=== PATIENT | female | born 1960 | race Caucasian/White ===

== ENCOUNTER 2021-06-23 10:47 | Outpatient (REF) | payer BC, SELFPAY ==
[2021-06-24 16:39] LABS: COVID-19 RT-PCR UVMMC Result Negative (Negative)
== END 2021-06-23 10:48 | disposition home or self-care (01) ==
LOC: LBN 10:47
PROVIDERS: PCP Internal Medicine; Visit Provider Physician Assistant
DX: Z20.822 Contact with and (suspected) exposure to COVID-19 (principal)
CPT/HCPCS: U0003

== ENCOUNTER 2021-07-05 10:20 | Outpatient (REF) | payer BC, SELFPAY ==
[2021-07-06 16:23] LABS: COVID-19 RT-PCR UVMMC Result Negative (Negative)
== END 2021-07-05 10:21 | disposition home or self-care (01) ==
LOC: LBN 10:20
PROVIDERS: PCP Family Medicine; Visit Provider Physician Assistant
DX: Z20.822 Contact with and (suspected) exposure to COVID-19 (principal)
CPT/HCPCS: U0003

== ENCOUNTER 2021-07-16 11:35 | Outpatient (CLI) | payer BC, SELFPAY ==
--- NOTE | 2021-07-16 11:11 | DI.RAD_ITS ---
Exam(s) XR CHEST 2V PA LATERAL EXAM: XR CHEST 2V PA LATERAL CLINICAL HISTORY: cough,r05.9 TECHNIQUE: 2D digital imaging was performed. COMPARISON: No exams were available for comparison FINDINGS: MEDIASTINUM: Normal. HEART: Normal. PULMONARY VASCULATURE: Normal. LUNGS: Clear. PLEURAL SPACE: No pleural effusion or pneumothorax. BONE:Unremarkable for age. IMPRESSION: No acute abnormality. DATA REPOSITORY: RADIATION DOSE DELIVERED:
== END 2021-07-16 11:55 ==
PROVIDERS: PCP Family Medicine; Visit Provider Physician Assistant
DX: R05.8 Other specified cough (principal)
CPT/HCPCS: 71046

== ENCOUNTER 2021-07-19 10:20 | Outpatient (CLI) | payer BC, SELFPAY ==
--- NOTE | 2021-07-19 10:15 | RT.EKG_ITS ---
APPROVED REPORT Exam: Resting ECG Reason for Exam: Chest discomfort Patient Location: O HR:60 bpm ECG Measurements Heart Rate 60 AXIS FL 190 P 59 QRSd 80 QRS 44 QT 398 T 27 QTc 397 Conclusion Sinus rhythm...normal P axis, V-rate 60- 99 Normal Electrocardiogram
== END 2021-07-19 10:21 | disposition home or self-care (01) ==
LOC: DI.CM 10:21
PROVIDERS: PCP Family Medicine; Visit Provider Physician Assistant
DX: R07.89 Other chest pain (principal)
CPT/HCPCS: 93010

== ENCOUNTER 2021-07-19 12:12 | Outpatient (CLI) | payer BC, SELFPAY ==
--- NOTE | 2021-07-19 11:30 | DI.CT_ITS ---
Exam(s) CT CHEST PE CTA EXAM: CT CHEST PE CTA CLINICAL HISTORY: R07.9 chest pain, chest pressure, mild SOB. TECHNIQUE: Imaging Protocol: Axial CT angiography was performed with multi-slice acquisition and mu lti-planar and/or 3D reconstructions. CONTRAST MATERIAL: Intravenous: Omnipaque 350 Contrast volume:100 ml COMPARISON: No exams were available for comparison FINDINGS: Pulmonary Arteries: No evidence of filling defect to suggest pulmonary emboli. Tracheobronchial tree: Patent where visualized. Mediastinum and Mary Lou: No dominant adenopathy or fluid collection. Pulmonary parenchyma: No consolidation or dominant measurable mass. Pleura: No effusion or pneumothorax. Heart: The heart is not dilated. No coronary artery calcifications are seen. Aorta: Thoracic aorta non-dilated. Motion at aortic root.. No dissection. Upper abdomen: Unremarkable. Bones: Unremarkable for age. IMPRESSION: No evidence of pulmonary embolism or other acute abnormality.. RADIATION DOSE DELIVERED: Total DLP DATA REPOSITORY: All CT scans at this facility are submitted to the National Radiology Data Registry (NRDR) Dose Index Registry (DIR) with the [employer] (ACR). RADIATION OPTIMIZATION: All CT scans at this facility use at least one of these dose optimization te chniques: automated exposure control; mA and/or kV adjustment per patient size (includes targeted exa ms where dose is matched to clinical indication); or iterative reconstruction.
[2021-07-19 12:35] LABS: Estimated GFR 56.95 (mL/min/1.73m2)
[2021-07-19 12:36] LABS: Troponin I < 0.05 ng/mL (<0.06)
[2021-07-19] MEDS: Omnipaque 350 MG/ML 100 ML BTL IJ (13:03)
[2021-07-19] MEDS: Normal Saline - Diluent 50 ML VIAL IV (13:03)
== END 2021-07-19 12:32 ==
PROVIDERS: PCP Family Medicine; Visit Provider Physician Assistant
DX: R07.9 Chest pain, unspecified (principal)
CPT/HCPCS: 36415; 71275; 82565; 84484; J3490

== ENCOUNTER 2021-08-09 04:05 | Outpatient (CLI) | payer BC, SELFPAY ==
[2021-08-09 08:04] LABS: HCT 42.5 % (36.0-46.0); HGB 13.9 g/dL (11.2-15.7); MCHC 32.7 % (32.0-36.0); MCV 91.6 fL (80-95); MPV 9.4 fL (8.0-11.0); Platelet Count 308 10^3/uL (130-400); RBC 4.64 10^6/uL (3.93-5.22); RDW 12.5 % (11.7-14.6); RDW-SD 42.1 fL; WBC 7.82 10^3/uL (4.4-10.8)
[2021-08-09 09:12] LABS: Iron 83 ug/dL (50-170); Total Iron Binding Capacity 324 ug/dL (250-450); Transferrin Sat 26 % (15-50)
[2021-08-09 09:19] LABS: ALT 30 U/L (14-59); AST 22 U/L (15-37); Albumin 3.9 g/dL (3.4-5.0); Alkaline Phosphatase 100 U/L (46-116); Anion Gap 8.2 mmol/L (3-11); BUN 21 mg/dL (7-18); Bilirubin, Total 0.4 mg/dL (0.2-1.0); CO2 28.8 mmol/L (21.0-32.0); Calculated LDL 127 mg/dL (<100); Chloride 104 mmol/L (98-107); Cholesterol 202 mg/dL (<200); Estimated GFR 56.75 (mL/min/1.73m2); Ferritin 71 ng/mL (8-252); Glucose 96 mg/dL (74-106); HDL Cholesterol 55 mg/dL (40-60); Potassium 4.8 mmol/L (3.5-5.1); Sodium 141 mmol/L (136-145); Total Protein 6.8 g/dL (6.4-8.2); Triglyceride 100 mg/dL (<150)
[2021-08-10 09:48] LABS: HIV-1/2 Ag & Ab Screen Negative (Negative)
[2021-08-10 10:04] LABS: Hepatitis C Ab w Rflx HCV PCR Negative (Negative)
== END 2021-08-09 04:06 | disposition home or self-care (01) ==
LOC: LBO 04:05
PROVIDERS: PCP Family Medicine; Visit Provider Family Medicine
DX: E78.5 Hyperlipidemia, unspecified (principal); I10 Essential (primary) hypertension; E83.119 Hemochromatosis, unspecified; Z11.59 Encounter for screening for other viral diseases; Z11.4 Encounter for screening for human immunodeficiency virus [HIV]
CPT/HCPCS: 36415; 80053; 80061; 85027; 86803; 87389; 82728; 83540; 83550

== ENCOUNTER 2022-01-11 09:07 | Outpatient (CLI) | payer BC, SELFPAY ==
--- NOTE | 2022-01-11 09:00 | RT.EKG_ITS ---
APPROVED REPORT Exam: Resting ECG Reason for Exam: Fatigue, hypertension Patient Location: O HR:53 bpm ECG Measurements Heart Rate 53 AXIS IA 169 P 43 QRSd 77 QRS 23 QT 402 T 14 QTc 379 Conclusion Sinus bradycardia...rate< 60 Normal Electrocardiogram
== END 2022-01-11 09:08 | disposition home or self-care (01) ==
LOC: DI.CM 09:13
PROVIDERS: PCP Family Medicine; Visit Provider Family Medicine
DX: I10 Essential (primary) hypertension (principal); T73.3XXA Exhaustion due to excessive exertion, initial encounter
CPT/HCPCS: 93010

== ENCOUNTER → 2022-03-15 00:32 | Outpatient (CLI) | payer BC, SELFPAY ==
--- OUTSIDE RECORDS SUMMARY | 2022-03-15 00:33 | XMS_ITS | Clinical Summary ---
:1960 Author Organization [facility] [address] Care Team Providers Name Role Phone Jeovanny Croft MD Primary Care Provider Allergies Active Allergy Reactions Severity Noted Date Comments Sulfa (Sulfonamide Antibiotics) 2 Medications Medication Sig Dispensed Refills Start Date End Date Status nebivoloL (BYSTOLIC) 5 TAKE 1 TABLET BY 0 07/29/2021 Active mg Tablet MOUTH DAILY sertraline (Zoloft) 25 TAKE 1 TABLET BY 0 07/24/2021 Active mg Tablet MOUTH DAILY olmesartan (BENICAR) TAKE 1 TABLET BY 0 07/24/2021 Active 20 mg Tablet MOUTH DAILY pantoprazole EC 0 06/23/2021 Act modesto (Protonix) 40 mg Tablet, Delayed Release (E.C.) pravastatin TAKE 1 TABLET BY 0 09/01/2021 Active (Pravachol) 10 mg MOUTH DAILY Tablet sulfacetamide 0 05/28/2021 Activ e sodium-sulfur (Avar) 10-5 % (w/w) Cleanser fluorouraciL (Efudex) Apply twice daily 40 g 0 09/21/2021 Active 5 % CreamIndications: (morning and Actinic keratoses night) to the nose for three weeks valACYclovir (Valtrex) At first sign of 40 tablet 0 09/21/2021 Active 1 gram Tablet cold sore, take two tablets by mouth. After 12 hours, take additional two tablets by mouth. Azelaic Acid (FINACEA) After skin is 50 g 11 09/21/2021 Active 15 % Gel thoroughly washed and patted dry, gently massage a thin layer onto the entire face. Do not use with Efudex. Social History Tobacco Use Types Packs/Day Years Used Date Never Smoker Smokeless Tobacco: Never Used Sex Assigned at Date Recorded Not on file Plan of Treatment Health Maintenance Due Date Last Done Comments Covid-19 Vaccine (#1) 1967 HIV screen 1980 Hepatitis C Screening 1980 Tdap adult 1981 Tetanus vaccine 1981 HPV test 1992 PAP Smear 1992 Breast Cancer Share Decision Needed 2002 Colonoscopy 2007 Breast Cancer screening 2012 Zoster vaccine (1 of 2) 2012 Advance Directive 2017 Influenza (Flu) vaccine (1 of 1 - Influenza standard 04/28/2022 series) Insurance Payer Benefit Plan / Subscriber ID Effective Dates Phone Addre ss Type Group [facility] [id number] 2016-Present [address] [place] [address] Care Teams 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
--- OUTSIDE RECORDS SUMMARY | 2022-03-15 00:33 | XMS_ITS | Encounter Summary ---
:1960 Author Organization [facility] Address [address] [place] [address] Care Team Providers Name Role Phone Jeovanny Croft MD Primary Care Provider Reason for Visit Reason Comments Skin Cancer Examination Consultation (Routine) - Authorized Specialty Diagnoses / Procedures Referred By Contact Refer red To Contact Dermatology Diagnoses Basal cell carcinoma of skin, unspecified Squamous cell carcinoma of skin, unspecified Jeovanny Croft MD [facility] [address] [place] [address] [place] [address] Fax: Referral ID Status Reason Start Expiration Visits Visits Date Date Requested Authorized [id number] Authorized Consult, 07/21/2022 6 6 [address] [facility] PCP Updated and/or Approved Encounter Details Date Type Department Care Team Description 09/21/2021 Office Visit Dermatology at [facility] Louie Givens istory of nonmelanoma skin cancer; Elinor Mendez MD Actinic keratoses; [address] [facility] Lentigines; [place] [address] Seborrheic keratoses; [phone] [facility] Multiple benign nevi; RD-DERMATOLOGY Simmons angioma; [place], [place] [address] History of cold sores; [phone] Rosacea (Work) Social History Tobacco Use Types Packs/Day Years Used Date Never Smoker Smokeless Tobacco: Never Used Sex Assigned at Date Recorded Not on file documented as of this encounter Patient Instructions Patient InstructionsFany Snider CMA - 09/21/2021 1:40 PM EST Images from the original note were not included. Start the following regimen in 1 month (1 week after 3 week course of efudex) AM -- 1. Wash face with Cetaphil Gentle Clear Salicylic Acid Cleanser. 2. Rx: azelaic acid 4. EltaMD UV Clear SPF 46 PM -- 1. Wash face with Cetaphil Gentle Clear Salicylic Acid Cleanser. 2. Rx: tretinoin 0.06% . Start every other night for 4-6 weeks, then increase to nightly if not too dry. 3. VaniCream Hyaluronic Acid Facial Moisturizer (if needed) documented in this encounter Progress Notes Louie Givens MD - 09/21/2021 1:40 PM EST Images from the original note were not included. DEPARTMENT OF DERMATOLOGY Medical Dermatology Clinic Note Provider: Louie Givens MD Patient's preferred name Monae Mercedes Preferred contact method for results [x]Phone []myD-H []Letter Detailed phone message OK? Yes Are there any other people with whom we may discuss your care? Dr. Croft , [place] Past Medical History Date, location, treatment Melanoma N Dysplastic nevi N SCC H/O SCC on the face S/P Mohs BCC H/O BCC on the face S/p Mohs AKs Yes, LN2 UV exposure Sun protection: wears SPF during the summer Lots of sun exposure Other relevant past medical history Cold sores Eczema Rosacea Hypertension Bronchitis, allergies/hay fever Family History Details Melanoma Brother (metastatic) NMSC Mother Other relevant family history N Social History Occupation: retired Hobbies: gardening, jewelry Other: , 3 children (1 ) Pre-Procedure Questions Details Allergy to lidocaine, epinephrine, Dermabond, chlorhexidine, or adhesives N Bleeding disorder or blood thinners N Implanted devices (Pacemaker, defibrillator, deep brain stimulator, cochlear implant) N History of Present Illness: Monae Funk is a 61 y.o. Patient is referred to the clinic at the request of Jeovanny Croft for a full skin exam with the following concerns: - Peeling on the nose with a lesion on the nasal tip that is recurrent. - She has a history of rosacea, that has been acting up recently. She currently uses sodium sulfacetamide solution, which helps. - Roughness along the hairline on the forehead. - She was previously prescribed tretinoin 0.06% cream and has not used it since moving here, but questions whether this is recommended. Review of Systems: General: Feeling well. Skin: No other skin concerns. Medications: Reviewed in eD-H Allergies: Reviewed in eD-H Skin Examination: Full skin examination: Patient asked to undress to their comfort level. Verbalized that the provider???s preference is that the patient remove all clothing and that the provider will not examine areas patient elects to keep covered. Patient elects to keep underwear on and have the following examined: s calp, hair, face, ears, neck, chest, axillae, abdomen, back, and upper and lower extremities. Genitalia and buttocks were not examined. Assessment/Plan #. History of Non-Melanoma Skin Cancer - Well healed scars as per history above. - NER; will continue to clinically monitor #. Actinic Keratoses with Actinic Skin Damage - Scaly irregular pink papule located on right upper arm x1, posterior neck x1, right caodaism x1, right brow x2, mid forehead x2, left upper cutaneous lip x1, left cheek x1 with diffuse actinic damage on the face (particularly the nose) - Dicsussed etiology and treatment options Joint decision made to pursue in clinic cryotherapy treatment with at home efudex treatment. - Start Rx: 5-fluorouracil (Efudex) 5% cream: Apply twice daily (morning and night) to the nose for three weeks - Reviewed expectations and typical reaction to treatment. Redness, crusting, swelling and tenderness of treated skin expected to develop during treatment, and is a sign that the medication is working.Warned not to get in eyes. Discussed using medication as tolerated and stopping use for a day or two if inflammation becomes too intense or patient experiences discomfort. For any severe discomfort or side effects, patient was encouraged to call for further advice and possible evaluation. - LN2 x 2 to lesion, advised to return if lesion(s) do not resolve. Procedure Note: Procedure: Destruction of lesions with cryotherapy. Number: 9 Location: right upper arm x1, posterior neck x1, right caodaism x1, right brow x2, mid forehead x2, left upper cutaneous lip x1, left cheek x1 Discussed procedure and expectations including risks (including risk of hypopigmentation) and benefits. Verbal consent obtained. Frozen with LN2, 15-30 second thaw time, TWICE. There were no complications; the patient tolerated the procedure well. Post-procedure expectations and wound care were reviewed. #. Erythrotelangiectatic Rosacea - Crescencio red patches and telangiectasis on the bilateral cheeks, nose, chin, and forehead. - Discussed skin findings and treatment options - Start Rx: azelaic acid (Finacea) 15% gel: Apply once daily to the face in the morning - Start Rx: tretinoin (Retin-A) 0.06% cream: Apply a pea sized amount to the face at bedtime after washing, start by applying 3 times a week and increase to nightly as tolerated. Patient has Rx at home. - We discussed risks and benefits of topical tretinoin which include but are not limited to photosensitivity, potential teratogenicity, irritation, erythema, peeling. We discussed ability for UV light to inactive the medication requiring application at night. - Recommend the following: AM: Cetaphil Gentle Clear Salicylic Acid cleanser and Elta MD UV clear PM: Cetaphil Gentle Clear Salicylic Acid cleanser and VaniCream Hyaluronic Acid Facial Moisturizer #. History of HSV (Cold Sores) - Joint decision to pursue as needed Valtrex courses with flares. - Start Rx: valacyclovir (Valtrex) 1g: At first sign of cold sore, take two tablets by mouth. After 12 hours, take additional two tablets by mouth. Sent 40 tablets. #. Solar Lentigines - Light-brown evenly pigmented, well-demarcated macules on sun exposed areas of the skin. - Patient reassured of benign nature. #. Seborrheic Keratoses - Scattered brown and flesh colored waxy nummular stuck on plaques located on the trunk and extremities - Reassured of benign nature #. Benign Nevi - Scattered medium-brown macules and papules on the trunk and extremities. - Reassured of benign appearance on exam today. #. Simmons Angiomas - Multiple bright red, well-demarcated papules on the abdomen, chest, and back - Reassured of benign nature Other: ??? Sun protection discussed (protective clothing and SPF30+ broad-spectrum sunscreen) RTC: 6 months for FSE and recheck of nose []Note routed to medical office secretary [x]Recall placed in scheduling system []Appointment scheduled at checkout Scribe attestation: Fany Snider CMA has performed the documentation for this encounter in the presence of and acting as a scribe for Louie Givens MD. I performed the above scribed service and agree with the accuracy of the documentation in this encounter. Reviewed and signed by: Louie Givens MD Dermatology [facility] Patient seen and evaluated with staff engineering aide: Jessenia Foss MD Department of Dermatology [facility] Jessenia Foss MD - 09/21/2021 1:40 PM EST I directly supervised Dr. Givens during this office visit. Dr. Givens presented the history and physical exam to me. I then saw and examined this patient with Dr. Givens . We reviewed the history and pertinent details and I confirmed the physical findings. I agree with the details of the history and physical exam as documented in Dr. Givens's note. Jessenia Foss MD Staff Physician documented in this encounter Plan of Treatment Not on filedocumented as of this encounter Visit Diagnoses Diagnosis History of nonmelanoma skin cancer Personal history of other malignant neop lasm of skin Actinic keratoses Actinic keratosis Lentigines Other dyschromia Seborrheic keratoses Multiple benign nevi Benign neoplasm of skin, site unspecifie d Simmons angioma Nevus, non-neoplastic History of cold sores Personal history of other infectious and parasitic disease Rosacea documented in this encounter Care Teams Biller Relationship Specialty Start Date End Date Jeovanny Croft MD PCP - General Family Medicine 07/29/[address] [place] [address] [place] [id number] documented as of this encounter
--- OUTSIDE RECORDS SUMMARY | 2022-03-15 00:33 | XMS_ITS | Clinical Summary ---
:1960 Demographics Home Phone Preferred Language Unknown Marital Status Unknown Hindu Affiliation Unknown Race Unknown Ethnic Group Unknown Author Organization [facility] Address [address] [place] [address] Care Team Providers Name Role Phone Unavailable Primary Care Provider Unavailable Social History Tobacco Use Types Packs/Day Years Used Date Never Assessed Sex Assigned at Date Recorded Not on file Plan of Treatment Health Maintenance Due Date Last Done Comments COVID-19 Vaccine (1) 1965 Hepatitis C Screen Completed 08/09/2021
--- OUTSIDE RECORDS SUMMARY | 2022-03-15 00:33 | XMS_ITS | Encounter Summary ---
:1960 Demographics Home Phone Preferred Language Unknown Marital Status Unknown Nondenominational Affiliation Unknown Race Unknown Ethnic Group Unknown Author Organization [facility] Address [address] [place] [address] Care Team Providers Name Role Phone Unavailable Primary Care Provider Unavailable Encounter Details Date Type Department Care Team Description 06/23/2021 Lab Requisition [facility] Outr Resulting Lab, Pathology & Laboratory Provider [facility] [address] [place] [address] Social History Tobacco Use Types Packs/Day Years Used Date Never Assessed Sex Assigned at Date Recorded Not on file documented as of this encounter Plan of Treatment Not on filedocumented as of this encounter Procedures Procedure Name Priority Date/Time Associated Diagnosis Comme nts COVID-19 TEST [facility] Today 06/23/2021 10:30 LAB PCR EDT COVID-19 TESTING Routine 06/23/2021 10:30 Results for this EDT procedure are i n the results section. documented in this encounter Results COVID-19 TEST [facility] LAB PCR (06/23/2021 10:30 EDT) Specimen Swab - Entire nasopharynx (body structur e) Performing Organization Address City/State/ZIP Code Phon e Number [facility] [address] [place] [address] SERVICES COVID-19 TESTING (06/23/2021 10:30 EDT) COVID-19 rt-PCR Negative Negative [facility] Result Comment: [facility] This test has not been FDA c leared or approved. This test has been authorized by FDA under an EUA for use by authorized laboratories. This test has been authorized only for detection of nucleic acid fro SERVICES m 2019-nCoV, not for any oth er viruses or pathogens. This test is only authorized for the duration of the declaration that circumstances exist justifying the authorization of emergency use of in vitro d iagnostic tests for detectio n and/or diagnosis of 2019-nCoV under section 564(b)(1) of Act, 21 U.S.C ?? 360bbb-3(b) (1), unless the authorization is terminated or revoked sooner. Negative results do not prec lude 2019-nCoV infection and should not be used as the sole basis for treatment or other patient management decisions. Negative results must be combined with clinical observa tions, patient history, and epidemiological informatio n. This test was developed and its performance characteristics determined by [facility]. It has not been cleared or approved by the US Food and Drug Administration. FDA does not require this test to go through premarket FDA review. This t est is used for clinical purposes. It should not be regarded as investigational or for research. This laboratory is certified under the Clinical Laboratory Improvement Amendm ents (CLIA) as qualified to perform high complexity clinical laboratory testing. This test is based on the CD C COVID-19 Emergency Use Authorization (EUA) assay, with minor modification as defined by the FDA Performed on the [employer] 7 Flex RT-PCR System. Performing Lab [facility] Lab [facility] SERVICES Specimen Swab Performing Organization Address City/State/ZIP Code Phon e Number [facility] [address] [place] [address] SERVICES documented in this encounter Visit Diagnoses Not on filedocumented in this encounter
--- OUTSIDE RECORDS SUMMARY | 2022-03-15 00:33 | XMS_ITS | Encounter Summary ---
:1960 Demographics Home Phone Preferred Language Unknown Marital Status Unknown Christian Affiliation Unknown Race Unknown Ethnic Group Unknown Author Organization [facility] Address [address] [place] [address] Care Team Providers Name Role Phone Unavailable Primary Care Provider Unavailable Encounter Details Date Type Department Care Team Description 08/09/2021 Lab Requisition [facility] Outr Resulting Lab, Pathology & Laboratory Provider [facility] [address] [place] [address] Social History Tobacco Use Types Packs/Day Years Used Date Never Assessed Sex Assigned at Date Recorded Not on file documented as of this encounter Plan of Treatment Not on filedocumented as of this encounter Procedures Procedure Name Priority Date/Time Associated Comments Diagnosis HIV 1/2 ANTIGEN AND Routine 08/09/2021 7:53 EST R esults for this ANTIBODY, 4TH procedure are in GENERATION the results section. documented in this encounter Results HIV 1/2 ANTIGEN AND ANTIBODY, 4TH GENERATION (08/09/2021 7:53 EST) HIV 1 and 2 NegativeComment: If Negative [facility] Antibody/p24 acute HIV-1 LABORATORY Antigen, 4th infection is SERVICES Generation suspected in a high risk patient, submit plasma specimen for HIV-1 RNA quantitation test. Specimen Blood - Venous blood (substance) Narrative [facility] SERVICES - 08/10/2021 9:43 EST Fourth Generation assay performed on the Siemens Centaur XPT. Performing Organization Address City/State/ZIP Code Phon e Number [facility] [address] [place] [address] SERVICES documented in this encounter Visit Diagnoses Not on filedocumented in this encounter
--- OUTSIDE RECORDS SUMMARY | 2022-03-15 00:33 | XMS_ITS | Encounter Summary ---
:1960 Demographics Home Phone Preferred Language Unknown Marital Status Unknown Congregational Affiliation Unknown Race Unknown Ethnic Group Unknown Author Organization [facility] Address [address] [place] [address] Care Team Providers Name Role Phone Unavailable Primary Care Provider Unavailable Encounter Details Date Type Department Care Team Description 07/05/2021 Lab Requisition [facility] Outr Resulting Lab, Pathology & Laboratory Provider [facility] [address] [place] [address] Social History Tobacco Use Types Packs/Day Years Used Date Never Assessed Sex Assigned at Date Recorded Not on file documented as of this encounter Plan of Treatment Not on filedocumented as of this encounter Procedures Procedure Name Priority Date/Time Associated Diagnosis Comme nts COVID-19 TEST [facility] Today 07/05/2021 9:30 EST LAB PCR COVID-19 TESTING Routine 07/05/2021 9:30 EST Resu lts for this procedure are i n the results section. documented in this encounter Results COVID-19 TEST [facility] LAB PCR (07/05/2021 9:30 EST) Specimen Swab Performing Organization Address City/State/ZIP Code Phon e Number [facility] [address] [place] [address] SERVICES COVID-19 TESTING (07/05/2021 9:30 EST) COVID-19 rt-PCR Negative Negative [facility] Result Comment: [facility] This test has not been FDA [...] tions, patient history, and epidemiological informatio n. Testing was performed using the rich SARS-CoV-2 assay ([employer] on the Rich 6800 System Performing Lab Rich [address] [facility] Lab [facility] SERVICES Specimen Swab Performing Organization Address City/State/ZIP Code Phon e Number [facility] [address] [place] [address] SERVICES documented in this encounter Visit Diagnoses Not on filedocumented in this encounter
--- OUTSIDE RECORDS SUMMARY | 2022-03-15 00:33 | XMS_ITS | Encounter Summary ---
:1960 Author Organization [facility] [place] [address] Care Team Providers Name Role Phone Jeovanny Croft MD Primary Care Provider Reason for Visit Reason Onset Date Comments Prior Authorization 09/21/2021 Azelaic Acid Encounter Details Date Type Department Care Team Description 09/21/2021 Telephone Dermatology at Venita Duran CMA Pr i[address] Author[address] (Azelaic Acid) [address] [place] [address] Social History Tobacco Use Types Packs/Day Years Used Date Never Smoker Smokeless Tobacco: Never Used Sex Assigned at Date Recorded Not on file documented as of this encounter Miscellaneous Notes Telephone Encounter - Katherine Moreno CMA - 09/22/2021 2:00 PM EST Medication Prior Authorization Approval Approved:Azelaic Acid 15% gel Start Date: 08/23/2021 End Date: 03/21/2022 Case/Reference #: [id number] See Approval Letter in scanned documents. Telephone Encounter - Venita Austin CMA - 09/21/2021 4:31 PM EST Medication Prior Authorization Request received via: Pharmacy Patient: Monae Funk Patient : 1960 Insurance Company: [facility] Sent via: [facility]LY [facility], [facility]–1983 [place]: [id number] Physician: Louie Givens MD Medication Requested: Azelaic Acid (FINACEA) 15 % Gel Frequency/Sig: After skin is thoroughly washed and patted dry, gently massage a thin layer onto the entire face. ??Do not use with Efudex. Disp: 50g Refills: 11 Currently taking: no Diagnosis for this medication: Rosacea L71.9 Additional Notes: documented in this encounter Plan of Treatment Not on filedocumented as of this encounter Visit Diagnoses Not on filedocumented in this encounter Care Teams Full Time Paramedic Relationship Specialty Start Date End Date Jeovanny Croft MD PCP - General Family Medicine 07/29/[address] [place] [address] [id number] [id number] documented as of this encounter
--- NOTE | 2022-03-15 07:00 | DI.NM_ITS ---
APPROVED REPORT Exam: Exercise Treadmill Patient Location: Out-Patient Room/Bed: Stress Nurse: Kacie Melton RN Ordering Provider:TOMASZ DARLING, Contact Number: [phone] BMI: 30.90 Baseline Rhythm: Sinus Bradycardia Comment: Rare PVC Indications: Fatigue on exertion, fatigue due to excessive exertion Medical History Medical History: Hypertension, hyperlipidemia, YARITZA, gerd, hemochromatosis Cardiac Medications: Pravastatin, pantoprazole, olmesartan, nebivolol Allergies: Sulfa Cardiac Risk Factors: Hypertension, hyperlipidemia, family hx Previous Cardiac Procedures: None Pretest Chest Pain Characteristics: None Exercise History: Physically active Physical Disabilities: None Lung Sounds: Clear to auscultation Heart Sounds: Regular Stress Test Details Test: Exercise stress testing was performed using a Gabriel protocol. Nuclear Acquisition: Rest Tc-99m/Stress Tc-99m 1 day Rest Isotope: Tc-99m Sestamibi. Dose: 10.0 Date: 03/15/2022 Injection Time: 0900 Stress Isotope: Tc-99m Sestamibi. Dose: 31.0 Date: 03/15/2022 Injection Time: 1028 HR Resting HR Supine: 56 bpm Max Heart Rate (APMHR): 161.257153 bpm Resting HR Standin bpm Target HR (85% APMHR): 136.173807 bpm Max HR Achieved: 140 bpm % of APMHR: 86.96 Recovery HR: 81 bpm HR response to stress: Normal HR response to stress Comment: Nebivolol held for 48 hrs BP Resting BP Supine: 148/86 mmHg Resting BP Standin/88 mmHg Max BP: 164/78 mmHg Recovery BP: 122/70 mmHg BP response to stress: Normal blood pressure response to stress. ECG Resting ECG: Sinus Bradycardia Ectopy: Rare PVC Stress ECG: Sinus Tachycardia ST Change: No significant ST segment changes noted Arrhythmia: PVC couplet Recovery ECG: Sinus Rhythm Recovery ST Change: Horizontal ST depression, Downsloping ST depression Lead(s): II, III, aVF, V3-V5 Recovery ST Deviation: 1-2 mm Recovery Arrhythmia: PVCs, bigeminy, couplets Comment: ST changes resolved by minute 11 recovery Clinical Reason for Termination: Chest pain/Anginal equivalent Stress Symptoms: Chest pain, General Fatigue Exercise duration: 8 min30 sec Highest Stage Reached: Stage 3: 3.4 mph at 14% grade. Exercise capacity: 10.16 METs Angina Score: Exercise-Limiting Boles Treadmill Score: 0.2 Rate Pressure Product: [id number] Stress ECG Conclusion 1. Resting electrocardiogram was within normal limits 2. Patient exercised on the Gabriel protocol completed a workload of 10.16 METS 3. Normal heart rate and blood pressure response to exercise. Patient achieved 86% of predicted hear t rate for age 4. In recovery there was downsloping ST depression noted in the inferior and anterolateral leads cons istent with ischemia. These persisted through minute 11 5. Ventricular ectopy was noted 6. See MPI report Boles Treadmill Score is 0.2 which is Moderate risk. Stress Test Summary STAGE Time (mins) Speed (mph) Grade (%) HR BP SpO2 SYMPTOMS METS Supine 56 148/86 Standing 59 148/88 SpO2 98% 1 3 1.7 10 102 138/78 SpO2 96% 4.5 2 6 2.5 12 122 164/78 SpO2 97% 7 3 9 3.4 14 138 SpO2 96% Chest discomfort 5/10 10 1 min recovery 107 168/70 SpO2 98% Chest discomfort 5/10 3 min recovery 73 148/70 SpO2 98% Chest discomfort 3/10 6 min recovery 82 122/70 SpO2 98% Chest discomfort 2/10 9 min recovery 81 Chest discomfort resolved Patient experienced chest discomfort in last stage of exercise as indigestion accompanied with L arm pain. Resolved by minute 10 of recovery. MPI Conclusion Myocardial perfusion is abnormal. There is evidence of anteroapical ischemia EF 64% Radiologist Interpretation Radiologist agrees with International Marketing Executive's Interpretation. Radiologist Interpretation by: Paul Mora MD Interpretation Date/Time: 03/17/2022 15:50:07
== END ==
PROVIDERS: PCP Family Medicine; Visit Provider Nurse Practitioner Family
DX: T73.3XXA Exhaustion due to excessive exertion, initial encounter (principal)
CPT/HCPCS: 78452; 93017

== ENCOUNTER 2022-03-24 19:01 | Emergency (ER) | payer BC, SELFPAY ==
[2022-03-24] VITALS (26 sets, daily range): BP systolic 95–162; BP diastolic 60–70; PULSE 42–59; RESP 10–18; TEMP 36.6; O2SAT 93–100
--- NOTE | 2022-03-24 19:00 | RT.EKG_ITS ---
APPROVED REPORT Exam: Resting ECG Reason for Exam: chest Patient Location: E HR:55 bpm ECG Measurements Heart Rate 55 AXIS ME 169 P 53 QRSd 89 QRS 39 QT 433 T 36 QTc 414 Conclusion Sinus bradycardia...rate< 60
--- NOTE | 2022-03-24 19:15 | DI.RAD_ITS ---
Exam(s) XR CHEST 2V PA LATERAL EXAM: XR CHEST 2V PA LATERAL CLINICAL HISTORY: chest pain TECHNIQUE: 2D digital imaging was performed of the chest. Two images were obtained. PA and lateral views were obtained. COMPARISON: CR XR CHEST 2V PA LATERAL from 07/16/2021 FINDINGS: MEDIASTINUM: Normal. HEART: Normal. PULMONARY VASCULATURE: Normal. LUNGS: Clear. PLEURAL SPACE: No pleural effusion or pneumothorax. BONE:Within normal limits for the patient's age. OTHER FINDINGS:Normal. IMPRESSION: No acute pulmonary findings. DATA REPOSITORY: RADIATION DOSE DELIVERED:
[2022-03-24 19:29] LABS: Abs Immature Grans 0.02 10^3/uL (0.0-0.06); Absolute Basophil Count 0.06 10^3/uL (0.0-0.2); Absolute Eosinophil Count 0.13 10^3/uL (0.0-0.7); Absolute Lymphocyte Count 3.53 10^3/uL (1.2-3.4); Absolute Monocyte Count 0.84 10^3/uL (0.1-0.8); Absolute Neutrophil Count 4.43 10^3/uL (1.2-6.7); Basophils % 0.7; Eosinophils % 1.4; HCT 39.5 % (36.0-46.0); HGB 13.6 g/dL (11.2-15.7); Immature Grans % 0.2; Lymphocytes % 39.2; MCH 30.6 pg (27.0-33.0); MCHC 34.4 % (32.0-36.0); MCV 89 fL (80-95); MPV 9.4 fL (8.0-11.0); Monocytes % 9.3; Neutrophils % 49.2; Platelet Count 278 10^3/uL (130-400); RBC 4.45 10^6/uL (3.93-5.22); RDW 12.1 % (11.7-14.6); WBC 9.01 10^3/uL (4.4-10.8)
[2022-03-24 19:46] LABS: ALT 36 U/L (14-59); AST 22 U/L (15-37); Albumin 3.9 g/dL (3.4-5.0); Alkaline Phosphatase 93 U/L (46-116); Anion Gap 6.7 mmol/L (3-11); BUN 19 mg/dL (7-18); Bilirubin, Total 0.3 mg/dL (0.2-1.0); CO2 28.3 mmol/L (21.0-32.0); Calcium 8.7 mg/dL (8.5-10.1); Chloride 106 mmol/L (98-107); Estimated GFR 56.75 (mL/min/1.73m2); Glucose 119 mg/dL (74-106); Magnesium 2.1 mg/dL (1.8-2.4); Potassium 3.4 mmol/L (3.5-5.1); Sodium 141 mmol/L (136-145); Total Protein 7.1 g/dL (6.4-8.2); Troponin I < 50 ng/L (<or=60)
[2022-03-24] MEDS: Aspirin 81 MG CHEW 243 MG CH (19:48)
[2022-03-24] MEDS: nitroGLYcerin 0.4 MG TAB (19:50)
--- NOTE | 2022-03-24 20:53 | DI.VRAD_ITS ---
PROCEDURE INFORMATION: Exam: XR Chest Exam date and time: 03/24/2022 8:15 PM Age: 61 years old Clinical indication: Pain; Other: Generilized TECHNIQUE: Imaging protocol: Radiologic exam of the chest. Views: 2 views. COMPARISON: CR XR CHEST 2V PA LATERAL 07/16/2021 11:11 AM FINDINGS: Lungs: Unremarkable. No consolidation. Pleural spaces: Unremarkable. No pleural effusion. No pneumothorax. Heart/Mediastinum: Unremarkable. No cardiomegaly. Bones/joints: Unremarkable. IMPRESSION: No evidence for acute abnormality in the chest. Dictated and Authenticated by: Jazmine Street MD. Ordering:LIZ Velasco MD
[2022-03-24 21:41] LABS: Troponin I < 50 ng/L (<or=60)
--- NOTE | 2022-03-24 21:59 | W.ED.GENAD ---
Discharge Plan Disposition Patient Disposition: HOME Condition: Improving Discharge Details Clinical Impression: Chest pain Primary Care Provider: Radha Estrella ED Provider: Rod Tsang Home Meds and New Rx's Prescriptions: Continued Bystolic 5 mg tablet 5 mg PO DAILY Qty: 90 3RF olmesartan 20 mg tablet 20 mg PO DAILY Qty: 90 3RF pravastatin 10 mg tablet 10 mg PO DAILY Qty: 90 3RF pantoprazole [Protonix] 40 mg tablet,delayed release (DR/EC) 40 mg PO .2xw nebivolol [Bystolic] 2.5 mg tablet 2.5 mg PO DAILY Qty: 30 2RF Rx Instructions: she will add to 5 mg tab to make 7.5 mg /day dose nitroglycerin 0.4 mg tablet, sublingual 0.4 mg sublingual Q5-15M PRN (Reason: chest pain) Qty: 25 0RF Rx Instructions: take as needed q 5 mins for c/p until gone if take 3 pills and pain persists, call aspirin 81 mg tablet,delayed release (DR/EC) 81 mg PO DAILY Qty: 90 3RF Discharge Instructions Instructions: Chest Pain (ED) Additional Instructions: At this time your laboratory values do not reveal any obvious emergent process and your symptoms have almost completely resolved. Using shared decision-making, you have decided to be discharged home at this time and plan to contact your cardiology team at [facility] tomorrow. I do believe this to be a reasonable plan but please watch for new or worsening symptoms and return immediately to the ER. Given your ongoing symptoms and recent stress test date may want to push up the timing of your cardiac catheterization. Medical Decision Making Patient is a 61-year-old female with a past medical history of depression, hyperlipidemia, hypertension, recent positive cardiac stress test presenting to the ER for what she describes as substernal chest tightness or pressure, denies any pain. Patient states in general she has been having intermittent symptoms for a couple of months, had an outpatient stress test on the that came back positive and actually saw [facility] cardiology today and they will be contacting her to set up an outpatient elective cardiac catheterization. She states that around 5 PM she was outside with her dogs on a very mild easy flat walk when she developed some chest tightness which felt relatively normal for her but she describes going through over the past couple of months. She states that she took a single nitro but there is no change in her chest pain. States that she did have a mild dull headache prior to taking the nitro, but worse after taking the nitro. She subsequently took an Advil. Plan is to obtain IV access, give 3 additional baby aspirin, 2 nitro, and initiate cardiac work-up. EKG is unremarkable, initial laboratory values including initial troponin are unremarkable, troponin less than 50. Chest x-ray clear. Patient states that after taking a nitro here in the ER she felt like her discomfort actually got slightly worse. Given her recent stress test which I reviewed, cardiology consultation, and seen to be scheduled for cardiac catheterization I believe discussing the case with cardiology is reasonable. While there does not appear to be any STEMI or NSTEMI, could this be an ACS equivalent or unstable angina. Case discussed at [address] Holl[address]worth, cardiology at [facility]. He recommends a delta troponin and if negative he believes the patient can be discharged home with prompt outpatient cardiology follow-up. Would like to be called back if the troponin is trending upward or the patient develops new or worsening symptoms. He states that if the troponin remains unremarkable but she is developing worsening or changing symptoms then he would certainly be open to the potential of transfer and I could call back at that time. I relayed my conversation that I had with Dr. Hollingsworth to both the patient and her . She states that her symptoms are improving and she would prefer to be discharged home this evening as opposed to transfer to [facility]. She is agreeable to awaiting a delta troponin. Delta troponin remains less than 50. Discussed these findings again both with patient and family. She reports that her symptoms have almost resolved completely and she continues to wish to be discharged home. She does understand the inherent risk of being discharged home in the setting of a recent abnormal stress test and pending outpatient cardiac catheterization presenting to the ER today with chest tightness. She is of sound mind and is able to make this decision. She assures me that she will return immediately for new or worsening symptoms otherwise she will contact her robotics application engineer tomorrow to discuss her ER visit and set up outpatient cardiac catheterization. Strict discharge and return precautions were provided. Patient understands, is agreeable to this plan, and has no additional questions or concerns upon discharge. This documentation was generated using [employer] system, please disregard any oddities of phrase or misspellings. Medical Records Medical records reviewed: Yes I reviewed the patient's medical records. Imaging Data Radiologic Study: Attestation: I personally reviewed and interpreted this imaging study as follows: Imaging: X-Ray Radiologist's impression: PROCEDURE INFORMATION: Exam: XR Chest Exam date and time: 03/24/2022 8:15 PM Age: 61 years old Clinical indication: Pain; Other: Generilized TECHNIQUE: Imaging protocol: Radiologic exam of the chest. Views: 2 views. COMPARISON: CR XR CHEST 2V PA LATERAL 07/16/2021 11:11 AM FINDINGS: Lungs: Unremarkable. No consolidation. Pleural spaces: Unremarkable. No pleural effusion. No pneumothorax. Heart/Mediastinum: Unremarkable. No cardiomegaly. Bones/joints: Unremarkable. IMPRESSION: No evidence for acute abnormality in the chest. Radiologic Study #2: Attestation: I personally reviewed and interpreted this imaging study as follows: Radiologist's impression: Exam:? Exercise Treadmill Patient Location: Out-Patient ? ? Room/Bed:?? Stress Nurse: Kacie Melton RN Ordering Provider:TOMASZ DARLING ? ? Contact Number: [phone] BMI: 30.90 Baseline Rhythm: Sinus Bradycardia Comment: Rare PVC Indications: Fatigue on exertion, fatigue due to excessive exertion Medical History Medical History: Hypertension, hyperlipidemia, YARITZA, gerd, hemochromatosis Cardiac Medications: Pravastatin, pantoprazole, olmesartan, nebivolol Allergies: Sulfa Cardiac Risk Factors: Hypertension, hyperlipidemia, family hx Previous Cardiac Procedures: None Pretest Chest Pain Characteristics: None Exercise History: Physically active Physical Disabilities: None Lung Sounds: Clear to auscultation Heart Sounds: Regular Stress Test Details Test:? Exercise stress testing was performed using a Gabriel protocol. Nuclear Acquisition: Rest Tc-99m/Stress Tc-99m 1 day Rest Isotope: Tc-99m Sestamibi. Dose: 10.0 Date: 03/15/2022 Injection Time: 0900 Stress Isotope: Tc-99m Sestamibi. Dose: 31.0 Date: 03/15/2022 Injection Time: 1028 HR Resting HR Supine: 56 bpm Max Heart Rate (APMHR): 161.526223 bpm? Resting HR Standin bpm Target HR (85% APMHR): 136.363531 bpm Max HR Achieved:? 140 bpm % of APMHR: ? 86.96 Recovery HR:? 81 bpm HR response to stress: Normal HR response to stress Comment: Nebivolol held for 48 hrs BP Resting BP Supine:? 148/86 mmHg Resting BP Standing:? 148/88 mmHg Max BP: ? ? ? 164/78 mmHg Recovery BP: ? ? ? 122/70 mmHg BP response to stress: Normal blood pressure response to stress. ECG Resting ECG:? Sinus Bradycardia Ectopy: Rare PVC Stress ECG: ? ? Sinus Tachycardia ST Change: No significant ST segment changes noted Arrhythmia:? ? PVC couplet Recovery ECG: Sinus Rhythm Recovery ST Change: Horizontal ST depression, Downsloping ST depression ? Lead(s): II, III, aVF, V3-V5 Recovery ST Deviation: 1-2 mm Recovery Arrhythmia: PVCs, bigeminy, couplets Comment: ST changes resolved by minute 11 recovery Clinical Reason for Termination: Chest pain/Anginal equivalent Stress Symptoms: Chest pain, General Fatigue Exercise duration: 8 min30 sec Highest Stage Reached: Stage 3: 3.4 mph at 14% grade. Exercise capacity: 10.16 METs Angina Score: Exercise-Limiting Boles Treadmill Score: 0.2 Rate Pressure Product: [id number] Stress ECG Conclusion 1. Resting electrocardiogram was within normal limits 2. Patient exercised on the Gabriel protocol completed a workload of 10.16 METS 3. Normal heart rate and blood pressure response to exercise.? Patient achieved 86% of predicted heart rate for age 4. In recovery there was downsloping ST depression noted in the inferior and anterolateral leads consistent with ischemia.? These persisted through minute 11 5. Ventricular ectopy was noted 6. See MPI report Boles Treadmill Score is 0.2 which is Moderate risk. Stress Test Summary STAGE Time (mins) Speed (mph) Grade (%) HR BP SpO2 SYMPTOMS METS Supine 56 148/86 Standing 59 148/88 SpO2 98% 1 3 1.7 10 102 138/78 SpO2 96% 4.5 2 6 2.5 12 122 164/78 SpO2 97% 7 3 9 3.4 14 138 SpO2 96% Chest discomfort 5/10 10 1 min recovery 107 168/70 SpO2 98% Chest discomfort 5/10 3 min recovery 73 148/70 SpO2 98% Chest discomfort 3/10 6 min recovery 82 122/70 SpO2 98% Chest discomfort 2/10 9 min recovery? 81 Chest discomfort resolved Patient experienced chest discomfort in last stage of exercise as indigestion accompanied with L arm pain. Resolved by minute 10 of recovery. MPI Conclusion Myocardial perfusion is abnormal.? There is evidence of anteroapical ischemia EF 64% Lab Data Lab results reviewed: Yes I reviewed the patient's lab results. Labs: Laboratory Tests Range/Units 03/24/22 03/24/22 03/24/22 19:22 19:22 21:20 WBC (4.4-10.8) 10^3/uL 9.01 RBC (3.93-5.22) 10^6/uL 4.45 Hgb (11.2-15.7) g/dL 13.6 Hct (36.0-46.0) % 39.5 MCV (80-95) fL 89 MCH (27.0-33.0) pg 30.6 MCHC (32.0-36.0) % 34.4 RDW (11.7-14.6) % 12.1 Plt Count (130-400) 10^3/uL 278 MPV (8.0-11.0) fL 9.4 Immature Gran % 0.2 Neutrophils % 49.2 Lymphocytes % 39.2 Monocytes % 9.3 Eosinophils % 1.4 Basophils % 0.7 Nucleated RBC % (0.0-0.3) % 0.0 Absolute Neutrophils (1.2-6.7) 10^3/uL 4.43 Absolute Lymphocytes (1.2-3.4) 10^3/uL 3.53 H Absolute Monocytes (0.1-0.8) 10^3/uL 0.84 H Absolute Eosinophils (0.0-0.7) 10^3/uL 0.13 Absolute Basophils (0.0-0.2) 10^3/uL 0.06 Sodium (136-145) mmol/L 141 Potassium (3.5-5.1) mmol/L 3.4 L Chloride (98-107) mmol/L 106 Carbon Dioxide (21.0-32.0) mmol/L 28.3 Anion Gap (3-11) mmol/L 6.7 BUN (7-18) mg/dL 19 H Creatinine (0.55-1.02) mg/dL 1.0 Estimated GFR/1.73 m2 (mL/min/1.73m2) 56.75 Glucose (74-106) mg/dL 119 H Calcium (8.5-10.1) mg/dL 8.7 Magnesium (1.8-2.4) mg/dL 2.1 Total Bilirubin (0.2-1.0) mg/dL 0.3 AST (15-37) U/L 22 ALT (14-59) U/L 36 Alkaline Phosphatase (46-116) U/L 93 Troponin I (<or=60) ng/L < 50 < 50 Total Protein (6.4-8.2) g/dL 7.1 Albumin (3.4-5.0) g/dL 3.9 ECG Data Attestation: I personally reviewed and interpreted this ECG (s) as follows: Interpretation: Sinus bradycardia, ventricular rate 55, no STEMI. HPI General Mode of arrival: ambulatory. Date/Time Provider Initiated Documentation: 03/24/22 19:08. Limitations to Documentation: no limitations. Information obtained by: patient and family. History of Present Illness 61 year old F presents to the emergency department with the chief complaint of L sided chest pain, described as moderate, with intensity rated at 4. Quality is described as other (Tightness), and is localized to the chest. Patient extremity (Left shoulder, resolved). Patient started experiencing this hour(s) (1) and it has been constant. No relieving factors improve symptom(s), No exacerbating factors reported . Patient notes no other symptoms.. Patient did receive the following treatments prior to arrival, other (Nitro x 1) Related Data Home Medications Medication Instructions Recorded Confirmed nebivolol 5 mg tablet (Bystolic) 5 mg PO DAILY #90 tabs 07/21/21 03/24/22 olmesartan 20 mg tablet 20 mg PO DAILY #90 tabs 07/21/21 03/24/22 pravastatin 10 mg tablet 10 mg PO DAILY #90 tabs 07/21/21 03/24/22 pantoprazole 40 mg tablet,delayed 40 mg PO .2xw 01/11/22 03/24/22 release (Protonix) aspirin 81 mg tablet,delayed 81 mg PO DAILY #90 tabs 03/22/22 03/24/22 release nebivolol 2.5 mg tablet (Bystolic) 2.5 mg PO DAILY #30 tabs 03/22/22 03/24/22 nitroglycerin 0.4 mg sublingual 0.4 mg sublingual Q5-15M PRN chest 03/22/22 03/24/22 tablet pain #25 tabs Previous Rx's Medication Instructions Recorded nebivolol 5 mg tablet (Bystolic) 5 mg PO DAILY #90 tabs 07/21/21 olmesartan 20 mg tablet 20 mg PO DAILY #90 tabs 07/21/21 pravastatin 10 mg tablet 10 mg PO DAILY #90 tabs 07/21/21 aspirin 81 mg tablet,delayed 81 mg PO DAILY #90 tabs 03/22/22 release nebivolol 2.5 mg tablet (Bystolic) 2.5 mg PO DAILY #30 tabs 03/22/22 nitroglycerin 0.4 mg sublingual 0.4 mg sublingual Q5-15M PRN chest 03/22/22 tablet pain #25 tabs Allergies Allergy/AdvReac Type Severity Reaction Status Date / Time Sulfa (Sulfonamide Allergy Verified 03/24/22 19:17 Antibiotics) General Stated Complaint: Chest Pain LIMA: 2 Review of Systems Constitutional Constitutional: Denies fatigue, Denies fever(s), Reports headache(s) and Denies weakness Eyes Eyes: Denies change in vision ENT Ears, Nose, Mouth, and Throat: Reports headache(s) and Denies neck pain Cardiovascular Cardiovascular: Reports chest pain and Denies dyspnea Respiratory Respiratory: Denies cough and Denies dyspnea Gastrointestinal Gastrointestinal: Denies abdominal pain, Denies nausea and Denies vomiting Musculoskeletal Musculoskeletal: Denies back pain, Denies neck pain and Denies tingling Integumentary/Breasts Skin/Breast: Denies rash Neurologic Neurologic: Reports headache(s), Denies tingling and Denies weakness Endocrine Endocrine: Denies fatigue Hematologic/Lymphatic Hematologic/Lymphatic: Denies easy bleeding and Denies easy bruising PFSH All Active Problems Chest pain (Acute) Positive cardiac stress test (Acute) Fatigue due to excessive exertion (Acute) Depression (Chronic) Squamous cell skin cancer (Chronic) face dx and tx in BCC (basal cell carcinoma of skin) (Chronic) Face-diagnosed /tx followed by dermatology in [place] Hemochromatosis (Chronic) Diagnosed in [place], followed by hematology there per patient had abnormal genetic testing as expected, treated with phlebotomy, followed ferritin Hyperlipidemia (Chronic) Essential hypertension (Chronic) Obstructive sleep apnea syndrome (Chronic) Medical History GERD (gastroesophageal reflux disease) History of [place]'s esophagus, EGD every 3 years, last EGD 04/2021 Osteoarthritis Bilateral hip replacement Surgical History History of bilateral tubal ligation History of colonoscopy (~2012) History of left hip replacement (~10/2019) History of right hip replacement (~07/2018) Status post lumbar laminectomy Family History Brother Cancer skin Depression Heart disease Hypertension Sister Cancer skin Depression Heart disease Hypertension Father , 72 Heart disease Hypertension Hyperlipidemia Mother Hypertension Dementia Hyperlipidemia Sister Heart disease Hypertension Hyperlipidemia Sister Heart disease Hyperlipidemia Hypertension Son , 32 of accident due to medical marijuana psychosis. No problems noted. Son No problems noted. Daughter No problems noted. 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) Pets and animals: Yes Pets and animals: dog(s) Sexually active: Yes Do you think of yourself as: straight/heterosexual Current gender identity: female What is your relationship status?: How often do you talk on the phone with friends or family?: three or more times per week How often do you get together with friends or relatives?: three or more times per week Do you belong to any clubs or organized social groups?: no Panel score (0-1 are the most socially isolated patients): 2 What type of physical activity do you participate in: walking and bicycling Duration: 15-30 minutes/day Frequency: 3-4 times per week Analia/Jehovah'S Witness: None Special analia needs: No Seatbelt use: always Helmet use: Yes Helmet use: always Drive intox or ride w/intox driver/sales workers: No Exam Const General: cooperative, healthy appearing, comfortable, no acute distress and anxious (Mildly) Orientation: alert, awake and oriented x3 HENMT Head: normal to inspection, normocephalic and atraumatic Face and sinus: normal facial exam Mouth: moist mucous membranes Eyes General: appearance normal, both eyes and all related structures Conjunctivae: conjunctivae normal Neck Neck: normal visual inspection, full ROM, trachea midline, supple and nontender Chest Chest: normal inspection of the chest and normal palpation of entire chest wall Resp Effort & Inspection: normal respiratory effort and able to speak in complete sentences Auscultation: clear to auscultation bilaterally Cardio Rate: regular rate Rhythm: regular rhythm GI Palpation: soft, not firm, no guarding, no pulsatile masses and nontender Auscultation: normal bowel sounds Back/Spine/Pelvis Back: No back tenderness Skin General skin exam: no rashes or lesions noted Neuro General: patient alert, patient awake, moves all extremities and no focal motor deficits Cognition: normal cognition Speech: speech normal Gait: normal gait Motor: muscle tone normal throughout Sensory Exam: no sensory deficits noted Extrem General: normal to inspection, full ROM, capillary refill normal, no pedal edema and no calf tenderness Psych Appearance: grossly normal Mental Status: mental status grossly normal Course Vital Signs Vital signs: Vital Signs Temperature 36.6 C 03/24/22 19:11 Pulse 54 L 03/24/22 19:11 Respiratory Rate 14 03/24/22 19:11 Blood Pressure 162/70 H 03/24/22 19:11 Pulse Oximetry 100 03/24/22 19:11 Temperature 36.6 C 03/24/22 19:11 Temperature Source Tympanic 03/24/22 19:11 Pulse 55 L 03/24/22 20:01 Pulse 54 L 03/24/22 20:21 Respiratory Rate 10 L 03/24/22 20:21 Respiratory Effort 03/24/22 19:20 Respiratory Depth Normal 03/24/22 19:20 Respiratory Pattern Normal 03/24/22 19:20 Blood Pressure 95/61 L 03/24/22 20:01 Blood Pressure Mean 68 03/24/22 20:01 Blood Pressure Position Sitting 03/24/22 19:11 Pulse Oximetry 93 03/24/22 20:21 Pain Level 3 03/24/22 19:50 Lab/Test Results Lab/Test Results: Laboratory Tests Range/Units 03/24/22 03/24/22 03/24/22 19:22 19:22 21:20 WBC (4.4-10.8) 10^3/uL 9.01 RBC (3.93-5.22) 10^6/uL 4.45 Hgb (11.2-15.7) g/dL 13.6 Hct (36.0-46.0) % 39.5 MCV (80-95) fL 89 MCH (27.0-33.0) pg 30.6 MCHC (32.0-36.0) % 34.4 RDW (11.7-14.6) % 12.1 Plt Count (130-400) 10^3/uL 278 MPV (8.0-11.0) fL 9.4 Immature Gran % 0.2 Neutrophils % 49.2 Lymphocytes % 39.2 Monocytes % 9.3 Eosinophils % 1.4 Basophils % 0.7 Nucleated RBC % (0.0-0.3) % 0.0 Absolute Neutrophils (1.2-6.7) 10^3/uL 4.43 Absolute Lymphocytes (1.2-3.4) 10^3/uL 3.53 H Absolute Monocytes (0.1-0.8) 10^3/uL 0.84 H Absolute Eosinophils (0.0-0.7) 10^3/uL 0.13 Absolute Basophils (0.0-0.2) 10^3/uL 0.06 Sodium (136-145) mmol/L 141 Potassium (3.5-5.1) mmol/L 3.4 L Chloride (98-107) mmol/L 106 Carbon Dioxide (21.0-32.0) mmol/L 28.3 Anion Gap (3-11) mmol/L 6.7 BUN (7-18) mg/dL 19 H Creatinine (0.55-1.02) mg/dL 1.0 Estimated GFR/1.73 m2 (mL/min/1.73m2) 56.75 Glucose (74-106) mg/dL 119 H Calcium (8.5-10.1) mg/dL 8.7 Magnesium (1.8-2.4) mg/dL 2.1 Total Bilirubin (0.2-1.0) mg/dL 0.3 AST (15-37) U/L 22 ALT (14-59) U/L 36 Alkaline Phosphatase (46-116) U/L 93 Troponin I (<or=60) ng/L < 50 < 50 Total Protein (6.4-8.2) g/dL 7.1 Albumin (3.4-5.0) g/dL 3.9
== END 2022-03-24 22:15 | disposition home or self-care (01) ==
PROVIDERS: Emergency Provider Physician Assistant; PCP Family Medicine
DX: R07.2 Precordial pain (principal); I10 Essential (primary) hypertension
CPT/HCPCS: 80053; 93005; 99283; 71046; 83735; 84484; 85025; 93010; 99285

== ENCOUNTER 2022-03-28 15:24 | Inpatient (IN) | payer BC, SELFPAY ==
[2022-03-28] VITALS (53 sets, daily range): BP systolic 104–157; BP diastolic 56–112; PULSE 62–94; RESP 12–26; TEMP 36.7; O2SAT 91–99
--- NOTE | 2022-03-28 15:15 | DI.RAD_ITS ---
Exam(s) XR PORTABLE CHEST AP EXAM: XR PORTABLE CHEST AP CLINICAL HISTORY: chest pain. TECHNIQUE: 2D digital imaging was performed. COMPARISON: CR,XR XR CHEST 2V PA LATERAL from 03/24/2022 FINDINGS: LUNGS: Clear. No pleural abnormality seen. HEART: Normal. MEDIASTINUM: Normal. OTHER FINDINGS: None. IMPRESSION: No acute pulmonary findings. DATA REPOSITORY: RADIATION DOSE DELIVERED: Total DLP
--- NOTE | 2022-03-28 15:15 | RT.EKG_ITS ---
APPROVED REPORT Exam: Resting ECG Reason for Exam: chest pain Patient Location: E HR:62 bpm ECG Measurements Heart Rate 62 AXIS NJ 163 P 48 QRSd 83 QRS 45 QT 402 T 35 QTc 410 Conclusion Sinus rhythm...normal P axis, V-rate 60- 99 Normal Electrocardiogram
[2022-03-28 15:44] LABS: Abs Immature Grans 0.02 10^3/uL (0.0-0.06); Absolute Basophil Count 0.05 10^3/uL (0.0-0.2); Absolute Eosinophil Count 0.07 10^3/uL (0.0-0.7); Absolute Lymphocyte Count 1.93 10^3/uL (1.2-3.4); Absolute Monocyte Count 0.82 10^3/uL (0.1-0.8); Absolute Neutrophil Count 7.81 10^3/uL (1.2-6.7); Basophils % 0.5; Eosinophils % 0.7; HCT 43.1 % (36.0-46.0); HGB 14.4 g/dL (11.2-15.7); Immature Grans % 0.2; MCH 29.6 pg (27.0-33.0); MCHC 33.4 % (32.0-36.0); MCV 89 fL (80-95); MPV 9.7 fL (8.0-11.0); Monocytes % 7.7; Neutrophils % 72.9; Platelet Count 294 10^3/uL (130-400); RBC 4.86 10^6/uL (3.93-5.22); RDW 11.9 % (11.7-14.6); RDW-SD 38.5 fL
[2022-03-28 16:01] LABS: ALT 42 U/L (14-59); AST 27 U/L (15-37); Albumin 4.4 g/dL (3.4-5.0); Alkaline Phosphatase 87 U/L (46-116); Anion Gap 8.2 mmol/L (3-11); BUN 19 mg/dL (7-18); Bilirubin, Total 0.5 mg/dL (0.2-1.0); CO2 27.8 mmol/L (21.0-32.0); CREATININE 1.1 mg/dL (0.55-1.02); Calcium 9.6 mg/dL (8.5-10.1); Chloride 102 mmol/L (98-107); Estimated GFR 50.84 (mL/min/1.73m2); Glucose 92 mg/dL (74-106); Potassium 3.8 mmol/L (3.5-5.1); Sodium 138 mmol/L (136-145); Troponin I < 50 ng/L (<or=60)
--- NOTE | 2022-03-28 16:16 | ED.GENADUL_ITS ---
Discharge Plan Disposition Patient Disposition: [facility] INPATIENT Condition: Serious Discharge Details Chief Complaint: Chest Pain Clinical Impression: Chest pain Primary Care Provider: Radha Estrella ED Provider: Sean Church Home Meds and New Rx's Prescriptions: No Action olmesartan 20 mg tablet 20 mg PO DAILY Qty: 90 3RF pantoprazole [Protonix] 40 mg tablet,delayed release (DR/EC) 40 mg PO DAILY nitroglycerin 0.4 mg tablet, sublingual 0.4 mg sublingual Q5-15M PRN (Reason: chest pain) Qty: 25 0RF Rx Instructions: take as needed q 5 mins for c/p until gone if take 3 pills and pain persists, call aspirin 81 mg tablet,delayed release (DR/EC) 81 mg PO DAILY Qty: 90 3RF pravastatin 10 mg tablet 40 mg PO HS prasugrel 10 mg Tablet 10 mg PO HS metoprolol tartrate 25 mg Tablet 25 mg PO HS Medical Decision Making 1620 --61-year-old female with history of coronary artery disease status post JUAN stent placed 4 days ago, here with chest pressure, intermittent since stenting and more persistent this afternoon, refractory to nitroglycerin. Concern for stent migration and ACS versus PE versus musculoskeletal versus other. EKG was reviewed and interpreted by me: Please see report, nondiagnostic, no STEMI. Initial troponin is negative. Plan for delta troponin. D-dimer pending. I obtained and reviewed outside hospital records including discharge summary from [facility] cardiology service 03/26/2022: Cardiac catheterization intervention summary: Single JUAN placed in second diagonal branch of the LAD. 1709 --D-dimer is elevated. Plan to proceed with CT of the chest. 1844 --CTA of the chest was interpreted by radiology: IMPRESSION: 1.? No evidence of pulmonary embolism. 2.? No pulmonary infiltrate or pleural fluid collection. Awaiting delta troponin. 1944 -- Delta trop neg. I called and spoke with cardiology transportation planner at [facility] Dr. Shen, discussed ED presentation and course and reviewed all diagnostics, he reviewed catherization report, he recommends giving nitroglycerin SL now and trend troponin. 2199 --third troponin negative. Patient reassessed, she had no relief with initial nitroglycerin or second nitroglycerin sublingual dose. Patient notes that she instead felt worse with nitroglycerin. Plan to admit for cardiac monitoring and trending of troponin. I spoke with Dr. Cherry who will admit the patient. Lab Data Lab results reviewed: Yes I reviewed the patient's lab results. HPI General Mode of arrival: ambulatory . Date/Time Provider Initiated Documentation: 03/28/22 15:26 . Limitations to Documentation: no limitations . Information obtained by: patient and family . HPI Narrative: 61-year-old female with history of gerd, hyperlipidemia, hypertension, coronary artery disease status post stent placement on 03/25/2022, presents today with chest pain. Patient notes she had some chest discomfort over the past few days that has been intermittent and seem to improve with rest. Today she notes persistent pain for the past few hours that is more severe. Pain is currently rated 3/10, localized to the left anterior chest, described as pressure, feels similar to chest pain that she had last week prior to stenting. Patient has been taking medication as prescribed.. Related Data Home Medications Medication Instructions Recorded Confirmed olmesartan 20 mg tablet 20 mg PO DAILY #90 tabs 07/21/21 03/28/22 pantoprazole 40 mg tablet,delayed 40 mg PO DAILY 01/11/22 03/28/22 release (Protonix) aspirin 81 mg tablet,delayed 81 mg PO DAILY #90 tabs 03/22/22 03/28/22 release nitroglycerin 0.4 mg sublingual 0.4 mg sublingual Q5-15M PRN chest 03/22/22 03/28/22 tablet pain #25 tabs metoprolol tartrate 25 mg tablet 25 mg PO HS 03/28/22 03/28/22 prasugrel 10 mg tablet 10 mg PO HS 03/28/22 03/28/22 pravastatin 10 mg tablet 40 mg PO HS 03/28/22 03/28/22 Previous Rx's Medication Instructions Recorded olmesartan 20 mg tablet 20 mg PO DAILY #90 tabs 07/21/21 aspirin 81 mg tablet,delayed 81 mg PO DAILY #90 tabs 03/22/22 release nitroglycerin 0.4 mg sublingual 0.4 mg sublingual Q5-15M PRN chest 03/22/22 tablet pain #25 tabs Allergies Allergy/AdvReac Type Severity Reaction Status Date / Time Sulfa (Sulfonamide Allergy Verified 03/28/22 15:30 Antibiotics) General Stated Complaint: Chest Pain LIMA: 3 Review of Systems All systems reviewed & are unremarkable except as noted in HPI and below Constitutional Constitutional: Denies fever(s) Cardiovascular Cardiovascular: Reports as per HPI and Denies dyspnea Respiratory Respiratory: Denies dyspnea PFSH All Active Problems (Updated 03/28/22 @ 23:10 by Saen Church MD) Chest pain (Acute) Chest pain (Acute) Positive cardiac stress test (Acute) Fatigue due to excessive exertion (Acute) Depression (Chronic) Squamous cell skin cancer (Chronic) face dx and tx in BCC (basal cell carcinoma of skin) (Chronic) Face-diagnosed /tx followed by dermatology in [place] Hemochromatosis (Chronic) Diagnosed in [place], followed by hematology there per patient had abnormal genetic testing as expected, treated with phlebotomy, followed ferritin Hyperlipidemia (Chronic) Essential hypertension (Chronic) Obstructive sleep apnea syndrome (Chronic) Medical History GERD (gastroesophageal reflux disease) History of Monaco's esophagus, EGD every 3 years, last EGD 04/2021 Osteoarthritis Bilateral hip replacement Surgical History History of bilateral tubal ligation History of colonoscopy (~2012) History of left hip replacement (~10/2019) History of right hip replacement (~07/2018) Status post lumbar laminectomy Family History Brother Cancer skin Depression Heart disease Hypertension Sister Cancer skin Depression Heart disease Hypertension Father , 72 Heart disease Hypertension Hyperlipidemia Mother Hypertension Dementia Hyperlipidemia Sister Heart disease Hypertension Hyperlipidemia Sister Heart disease Hyperlipidemia Hypertension Son , 32 of accident due to medical marijuana psychosis. No problems noted. Son No problems noted. Daughter No problems noted. 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[employer]) Pets and animals: Yes Pets and animals: dog(s) Sexually active: Yes Do you think of yourself as: straight/heterosexual Current gender identity: female What is your relationship status?: How often do you talk on the phone with friends or family?: three or more times per week How often do you get together with friends or relatives?: three or more times per week Do you belong to any clubs or organized social groups?: no Panel score (0-1 are the most socially isolated patients): 2 What type of physical activity do you participate in: walking and bicycling Duration: 15-30 minutes/day Frequency: 3-4 times per week Analia/Spiritism: None Special analia needs: No Seatbelt use: always Helmet use: Yes Helmet use: always Drive intox or ride w/intox bobcat driver/labor: No Do you feel safe at home: Yes Do you feel safe in your relationship?: Yes Exam Const General: cooperative and no acute distress HENMT Mouth: moist mucous membranes Eyes Conjunctivae: normal conjunctivae Sclera: normal sclerae Neck Neck: trachea midline Resp Auscultation: clear to auscultation bilaterally, no rales, no rhonchi and no wheezes Cardio Rate: regular rate and not tachycardic Rhythm: regular rhythm GI Palpation: soft, not firm, no guarding, no masses, not rigid and nontender Skin General skin exam: no rashes or lesions noted Neuro General: patient alert, patient awake and tone normal Extrem General: no calf tenderness and no edema Psych Appearance: grossly normal Mental Status: mental status grossly normal Speech and Movement: speech and movement normal Course Vital Signs Vital signs: Vital Signs Respiratory Rate 15 03/28/22 15:34 Pulse Oximetry 99 03/28/22 15:34 Temperature 36.7 C 03/28/22 15:36 Temperature Source Temporal Artery Scan 03/28/22 15:36 Pulse 62 03/28/22 15:45 Pulse 63 03/28/22 15:45 Respiratory Rate 12 03/28/22 15:45 Respiratory Effort Non-Labored 03/28/22 15:32 Respiratory Depth Normal 03/28/22 15:32 Respiratory Pattern Normal 03/28/22 15:32 Blood Pressure 127/86 03/28/22 15:45 Blood Pressure Mean 93 03/28/22 15:45 Pulse Oximetry 98 08/01/22 15:45 Oxygen Delivery Method Room Air 03/28/22 15:36 Oxygen Flow Rate 0 03/28/22 15:36 Pain Level 3 03/28/22 15:25 Lab/Test Results Lab/Test Results: Laboratory Tests Range/Units 03/28/22 03/28/22 15:32 15:32 WBC (4.4-10.8) 10^3/uL 10.70 RBC (3.93-5.22) 10^6/uL 4.86 Hgb (11.2-15.7) g/dL 14.4 Hct (36.0-46.0) % 43.1 MCV (80-95) fL 89 MCH (27.0-33.0) pg 29.6 MCHC (32.0-36.0) % 33.4 RDW (11.7-14.6) % 11.9 Plt Count (130-400) 10^3/uL 294 MPV (8.0-11.0) fL 9.7 Immature Gran % 0.2 Neutrophils % 72.9 Lymphocytes % 18.0 Monocytes % 7.7 Eosinophils % 0.7 Basophils % 0.5 Nucleated RBC % (0.0-0.3) % 0.0 Absolute Neutrophils (1.2-6.7) 10^3/uL 7.81 H Absolute Lymphocytes (1.2-3.4) 10^3/uL 1.93 Absolute Monocytes (0.1-0.8) 10^3/uL 0.82 H Absolute Eosinophils (0.0-0.7) 10^3/uL 0.07 Absolute Basophils (0.0-0.2) 10^3/uL 0.05 Sodium (136-145) mmol/L 138 Potassium (3.5-5.1) mmol/L 3.8 Chloride (98-107) mmol/L 102 Carbon Dioxide (21.0-32.0) mmol/L 27.8 Anion Gap (3-11) mmol/L 8.2 BUN (7-18) mg/dL 19 H Creatinine (0.55-1.02) mg/dL 1.1 H Estimated GFR/1.73 m2 (mL/min/1.73m2) 50.84 Glucose (74-106) mg/dL 92 Calcium (8.5-10.1) mg/dL 9.6 Total Bilirubin (0.2-1.0) mg/dL 0.5 AST (15-37) U/L 27 ALT (14-59) U/L 42 Alkaline Phosphatase (46-116) U/L 87 Troponin I (<or=60) ng/L < 50 Total Protein (6.4-8.2) g/dL 8.0 Albumin (3.4-5.0) g/dL 4.4
[2022-03-28 16:26] LABS: D-Dimer 666 ng/mlFEU (<500)
--- NOTE | 2022-03-28 16:30 | DI.CT_ITS ---
Exam(s) CT CHEST PE CTA EXAM: CT CHEST PE CTA CLINICAL HISTORY: chest pain 4 days post cardiac stent, elev ddimer. TECHNIQUE: Imaging Protocol: Axial CT angiography was performed with multi-slice acquisition and mu lti-planar and/or 3D reconstructions. CONTRAST MATERIAL: Intravenous: Omnipaque 350 contrast volume:70 mL COMPARISON: CT CT CHEST PE CTA from 07/19/2021 CT,NM,TMT NM MPI REST STRESS GRP from 03/15/2022 FINDINGS: The examination is limited due to patient motion artifact. Tracheobronchial tree: Patent where visualized. Pulmonary parenchyma: No consolidation or dominant measurable mass. No architectural distortion. Pulmonary Arteries: No evidence of filling defect to suggest pulmonary emboli. Mediastinum and Mary Lou: No dominant adenopathy or fluid collection. The esophagus is unremarkable. Visualized thyroid gland: Unremarkable. Pleura: No effusion or pneumothorax. Heart: The heart is not dilated. No pericardial effusion. Aorta: Thoracic aorta non-dilated. No evidence of dissection. Upper abdomen: Unremarkable. Soft tissues: Unremarkable. Bones: Within normal limits for the patient's age. IMPRESSION: No evidence of pulmonary embolism, thoracic aortic dissection or aneurysm. RADIATION DOSE DELIVERED: 467.51mGy.cm Total DLP DATA REPOSITORY: All CT scans at this facility are submitted to the National Radiology Data Registry (NRDR) Dose Index Registry (DIR) with the [employer] (ACR). RADIATION OPTIMIZATION: All CT scans at this facility use at least one of these dose optimization te chniques: automated exposure control; mA and/or kV adjustment per patient size (includes targeted exa ms where dose is matched to clinical indication); or iterative reconstruction.
[2022-03-28] MEDS: Omnipaque 350 MG/ML 100 ML BTL IJ (17:28)
[2022-03-28] MEDS: Acetaminophen 325 MG TAB 650 MG PO (17:38)
[2022-03-28] MEDS: Lactated Ringers 500 ML IV (17:45)
--- NOTE | 2022-03-28 18:00 | DI.VRAD_ITS ---
PROCEDURE INFORMATION: Exam: CTA Chest With Contrast Exam date and time: 03/28/2022 5:22 PM Age: 61 years old Clinical indication: Chest pain, elevated d-dimer, 4 days post cardiac stent TECHNIQUE: Imaging protocol: Computed tomographic angiography of the chest with contrast. 3D rendering (Not supervised by radiologist): MIP and/or 3D reconstructed images were created by the technologist. Contrast material: 350; Contrast volume: 75 ml; Contrast route: INTRAVENOUS (IV); COMPARISON: CT CHEST PE CTA 07/19/2021 1:08 PM FINDINGS: Pulmonary arteries: No evidence of pulmonary embolism. Aorta: Normal caliber thoracic aorta without dissection or aneurysm. Lungs: No alveolar or ground glass infiltrate. Pleural spaces: No pleural fluid collection. No pneumothorax. Heart: No right ventricular strain. No pericardial effusion. Lymph nodes: No enlarged lymph nodes. Bones/joints: Mild spinal degenerative changes. Soft tissues: Unremarkable. IMPRESSION: 1. No evidence of pulmonary embolism. 2. No pulmonary infiltrate or pleural fluid collection. Dictated and Authenticated by: Donavon Kulkarni MD. Ordering:AYAKA Estrada MD
[2022-03-28 19:11] LABS: Troponin I < 50 ng/L (<or=60)
[2022-03-28] MEDS: nitroGLYcerin 0.4 MG TAB SL ×3 (19:54→20:37)
[2022-03-28 21:36] LABS: Troponin I < 50 ng/L (<or=60)
--- NOTE | 2022-03-28 22:26 | W.PM.HP.N ---
Date of service: 03/28/22 Time of Service: 22:26 Assessment and Plan Assessment and plan (1) Chest pain: Status: Acute Assessment and plan: Atypical CP. This is a difficult situation. The negative trop series and normal EKG (with pain) is reassuring, but I am concerned with the description of this as identical to prior symptoms. Will watch overnight and repeat trop in AM. Will continue DUAP as is. I think the balance of weight is that we should hold off on heparin at this point without any objective evidence of coronary insufficiency but would tend to have a low threshold for starting. Will reassess with Cardiology in AM. Notably regarding the frequent ventricular ectopy patient states this is baseline for her. History of Present Illness History of Present Illness Chief Complaint: CP Narrative: 61 female with CAD. Had abnormal stress test 2 weeks TAX ANALYST, performed to evaluate CP. Had cardiac cath 4 days TAX ANALYST with stent x1. Had some mild and transient CP the following 2 days, but more persistent pain today, lasting for hours and on into visit to ER. here in ER initial w/u of note for negative trop and normal EKG. No response to NTG. Has had negative series of three troponins. Case discussed with Cardiology at [facility]. Initial advice was trial NTG, which subsequently had no effect as mentioned above. I was asked to evaluate for admission. At present patient states she has only 1/10 pain. Notably she states that the pain she has been having post cath, including today, is identical to the pain prior to cath, and the rate limiting symptom she experienced during initial stress test. Review of Systems Narrative: per HPI PFSH All Active Problems Chest pain (Acute) Positive cardiac stress test (Acute) Fatigue due to excessive exertion (Acute) Depression (Chronic) Squamous cell skin cancer (Chronic) face dx and tx in BCC (basal cell carcinoma of skin) (Chronic) Face-diagnosed /tx followed by dermatology in [place] Hemochromatosis (Chronic) Diagnosed in [place], followed by hematology there per patient had abnormal genetic testing as expected, treated with phlebotomy, followed ferritin Hyperlipidemia (Chronic) Essential hypertension (Chronic) Obstructive sleep apnea syndrome (Chronic) Medical History GERD (gastroesophageal reflux disease) History of Monaco's esophagus, EGD every 3 years, last EGD 04/2021 Osteoarthritis Bilateral hip replacement Surgical History History of bilateral tubal ligation History of colonoscopy (~2012) History of left hip replacement (~10/2019) History of right hip replacement (~07/2018) Status post lumbar laminectomy Family History Brother Cancer skin Depression Heart disease Hypertension Sister Cancer skin Depression Heart disease Hypertension Father , 72 Heart disease Hypertension Hyperlipidemia Mother Hypertension Dementia Hyperlipidemia Sister Heart disease Hypertension Hyperlipidemia Sister Heart disease Hyperlipidemia Hypertension Son , 32 of accident due to medical marijuana psychosis. No problems noted. Son No problems noted. Daughter No problems noted. 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) Pets and animals: Yes Pets and animals: dog(s) Sexually active: Yes Do you think of yourself as: straight/heterosexual Current gender identity: female What is your relationship status?: How often do you talk on the phone with friends or family?: three or more times per week How often do you get together with friends or relatives?: three or more times per week Do you belong to any clubs or organized social groups?: no Panel score (0-1 are the most socially isolated patients): 2 What type of physical activity do you participate in: walking and bicycling Duration: 15-30 minutes/day Frequency: 3-4 times per week Analia/Roman Catholic: None Special analia needs: No Seatbelt use: always Helmet use: Yes Helmet use: always Drive intox or ride w/intox catering 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: No Do you feel safe at home: Yes Do you feel safe in your relationship?: Yes Meds Allergies and Home Medications Allergies Allergy/AdvReac Type Severity Reaction Status Date / Time Sulfa (Sulfonamide Allergy Verified 03/28/22 15:30 Antibiotics) Home Medications Medication Instructions Recorded Confirmed Type olmesartan 20 mg tablet 20 mg PO DAILY #90 tabs 07/21/21 03/28/22 Rx pantoprazole 40 mg tablet,delayed 40 mg PO .2xw 01/11/22 03/28/22 History release (Protonix) aspirin 81 mg tablet,delayed 81 mg PO DAILY #90 tabs 03/22/22 03/28/22 Rx release nitroglycerin 0.4 mg sublingual 0.4 mg sublingual Q5-15M PRN chest 03/22/22 03/28/22 Rx tablet pain #25 tabs prasugrel 10 mg tablet 10 mg PO DAILY 03/28/22 03/28/22 History pravastatin 10 mg tablet 40 mg PO DAILY 03/28/22 03/28/22 History Exam Narrative Exam Narrative: 121/65, 65, 36.7, 22, 97% RA. HEENT atraumatic; neck supple w/o JVD; lungs clear; heart frequent ectopics (couplets on monitor), abdomen soft and NT; extremities w/o edema, pulses 2+/=; neuro Ox3, moves all 4s Results Labs Result diagrams: 03/28/22 15:32 03/28/22 15:32 Labs: Laboratory Results - last 24 hr 03/28/22 03/28/22 03/28/22 15:32 15:32 15:32 WBC 10.70 RBC 4.86 Hgb 14.4 Hct 43.1 MCV 89 MCH 29.6 MCHC 33.4 RDW 11.9 Plt Count 294 MPV 9.7 Immature Gran % 0.2 Neutrophils % 72.9 Lymphocytes % 18.0 Monocytes % 7.7 Eosinophils % 0.7 Basophils % 0.5 Nucleated RBC % 0.0 Absolute Neutrophils 7.81 H Absolute Lymphocytes 1.93 Absolute Monocytes 0.82 H Absolute Eosinophils 0.07 Absolute Basophils 0.05 D-Dimer 666 H Sodium 138 Potassium 3.8 Chloride 102 Carbon Dioxide 27.8 Anion Gap 8.2 BUN 19 H Creatinine 1.1 H Estimated GFR/1.73 m2 50.84 Glucose 92 Calcium 9.6 Total Bilirubin 0.5 AST 27 ALT 42 Alkaline Phosphatase 87 Troponin I < 50 Total Protein 8.0 Albumin 4.4 03/28/22 03/28/22 18:30 21:08 WBC RBC Hgb Hct MCV MCH MCHC RDW Plt Count MPV Immature Gran % Neutrophils % Lymphocytes % Monocytes % Eosinophils % Basophils % Nucleated RBC % Absolute Neutrophils Absolute Lymphocytes Absolute Monocytes Absolute Eosinophils Absolute Basophils D-Dimer Sodium Potassium Chloride Carbon Dioxide Anion Gap BUN Creatinine Estimated GFR/1.73 m2 Glucose Calcium Total Bilirubin AST ALT Alkaline Phosphatase Troponin I < 50 < 50 Total Protein Albumin Last Vital Signs Temp 36.7 C 03/28/22 15:36 Pulse 64 03/28/22 20:45 Resp 22 03/28/22 21:20 BP 121/66 03/28/22 20:45 Pulse Ox 97 03/28/22 21:20
[2022-03-28 22:47] LABS: Source Nasal/Nares
[2022-03-28 23:43] LABS: COVID-19 PCR POSITIVE (Negative)
[2022-03-29] VITALS (12 sets, daily range): BP systolic 117–141; BP diastolic 70–90; PULSE 62–95; RESP 16–22; TEMP 36.6–38.2; O2SAT 95–98
[2022-03-29] MEDS: Acetaminophen 500 MG TAB 1000 MG PO ×3 (02:13→16:33)
[2022-03-29] MEDS: Metoprolol 25 MG TAB PO ×2 (02:15→22:55)
[2022-03-29] MEDS: Normal Saline Flush 10 ML SYR IVP ×3 (02:15→10:33)
[2022-03-29 06:41] LABS: Troponin I < 50 ng/L (<or=60)
[2022-03-29] MEDS: Aspirin E.C. 81 MG TABEC PO (07:53)
--- NOTE | 2022-03-29 10:15 | RT.EKG_ITS ---
APPROVED REPORT Exam: Resting ECG Reason for Exam: chest pain Patient Location: I HR:73 bpm ECG Measurements Heart Rate 73 AXIS NV 153 P 85 QRSd 85 QRS 29 QT 351 T 34 QTc 387 Conclusion Sinus rhythm...rate> 99 Multiple ventricular premature complexes...V complexes w/ short R-R intervls Otherwise normal
[2022-03-29] MEDS: Normal Saline 500 ML 30 ML IV (10:33)
[2022-03-29] MEDS: REMDESIVIR 200 MG in Normal Saline 250 ML 250 MG IVPB (10:34)
--- NOTE | 2022-03-29 12:35 | INITIAL_ITS ---
- If Service Date Differs Date of service: 03/29/22 Time of Service: 12:35 Care Management Initial Assess REASON FOR HOSPITALIZATION:: Chest Pain PAST MEDICAL HISTORY/PAST SURGICAL HISTORY:: All Active Problems. Chest pain (Acute). Positive cardiac stress test (Acute). Fatigue due to excessive exertion (Acute). Depression (Chronic). Squamous cell skin cancer (Chronic). face dx and tx in [place]. BCC (basal cell carcinoma of skin) (Chronic). Face-diagn osed /tx followed by dermatology in [place]. Hemochromatosis (Chronic). Diagnosed in [place], followed by hematology there per patient had abnormal genetic testing as expected, treated with phlebotomy, followed ferritin. Hyperlipidemia (Chronic). Essential hypertension (Chronic). Obstructive sleep apnea syndrome (Chronic). Medical History. GERD (gastroesophageal reflux disease). History of Monaco's esophagus, EGD every 3 years, last EGD 04/2021. Osteoarthritis. Bilateral hip replacement. Surgical History. History of bilateral tubal ligation. History of colonoscopy (~2012). History of left hip replacement (~10/2019). History of right hip replacement (~07/2018). Status post lumbar laminectomy PREVIOUS FUNCTIONAL STATUS/SOCIAL/FAMILY SUPPORTS:: Monae lives in [place] with her , [place]. They moved to [place] from [place] recently. She is indpendent at baseline. CURRENT FUNCTIONAL STATUS:: Monae is currently on Covid precautions, therefore CM did not meet with her today. Per report, she recently had a cardiac procedure at [facility]. Cardio is consulted, and she may be considered for transfer to [facility], if indicated. CM will continue to follow. ADVANCE DIRECTIVES:: Not on file. Has patient been provided with info about the portal/API?: Yes Did the patient sign up for the portal?: Yes (active) CODE STATUS:: Full Code INSURANCE COVERAGE / FINANCIAL ISSUES:: BCBS CURRENT HOME/COMMUNITY SERVICES/EQUIPMENT:: No current services or equipment. PRIMARY CARE PHYSICIAN:: Radha Estrella POTENTIAL DISCHARGE NEEDS:: Evaluations for further needs, potential transfer per MD, follow up appointments. PATIENT/FAMILY EDUCATION NEEDS:: Review discharge instructions and limitations, discussion of self care needs including ask me three. ANTICIPATED BARRIERS TO DISCHARGE:: None identified. TRANSPORTATION:: Via private vehicle with family. PLAN:: Anticipate Monae will return home when medically cleared. Her will drive her home via private vehicle when ready. She will follow up with her PCP and discharge plan of care. CM will continue to follow.
[2022-03-29] MEDS: Heparin 5,000 UNITS/ML VIAL 5000 UNITS SC (14:20)
[2022-03-29] MEDS: Pantoprazole 40 MG TABCR PO (16:33)
--- NOTE | 2022-03-29 19:20 | W.PM.PROGNOT ---
Date of Service Date of service: 03/29/22 Time of Service: 17:00 Assessment and Plan Assessment and plan (1) Chest pain: Status: Acute Assessment and plan: ? unstable angina. Discussed case with Dr Shen of cardiology. It is unclear if the chest pain is cardiac in origin or has more to do with COVID-19. He recommends obtaining an echocardiogram and, if possible, a stress test. There are no beds at [facility] for cardiology either today or tomorrow. He recommended calling back should there be something concerning on the echo or the stress test. Will continue to monitor the patient on tele. Will repeat troponin in am. (2) CAD (coronary artery disease): Status: Chronic Assessment and plan: The patient is s/p cardiac cath at [facility] on 03/25/22. Per cardiology, the patient does have a vessel with 70% stenosis that was not stented that could be the culprit of the pain. Will obtain echo and, if possible, an MPI stress test. (3) COVID-19: Status: Acute Assessment and plan: The patient is considered high risk for severe disease and is receiving remdesivir therapy. Will also treat with vitamin c, d, zinc. Encourage IS, a capella. Antitussives. Proning. (4) Obstructive sleep apnea syndrome: Status: Chronic Assessment and plan: Does not use CPAP. will mointor O2 sats (5) DVT prophylaxis: Status: Acute Assessment and plan: Lovenox (6) Discharge planning issues: Status: Acute Assessment and plan: Full code Continues to require hospitalization Subjective Subjective Interval history since last seen: Ms Funk describes a chest pain which is band-like under her breasts. This pain started as a central pain yesterday and felt just like it did before she had the cardiac cath, but then evolved overnight. She states she had no idea she had COVID or was sick until she was told she had tested positive last night. She reports a dry cough, has had a fever and chills. No shortness of breath at this time. She has not required oxygen today. Exam Narrative Exam Narrative: The visit was done via the phone as the patient has COVID-19. The patient is A&Ox3, no dyspneic/tachypneic, good history provider. Objective Last Vital Signs Temp 37.9 C H 08/02/22 16:33 Pulse 80 03/29/22 15:51 Resp 22 03/29/22 15:25 BP 122/70 03/29/22 15:25 Pulse Ox 98 03/29/22 15:25 Laboratory Results - last 24 hr 03/28/22 03/28/22 03/29/22 21:08 22:43 05:55 Troponin I < 50 < 50 COVID-19 Source Nasal/Nares SARS-CoV-2 (PCR) POSITIVE A*
[2022-03-29] MEDS: Ascorbic Acid 500 MG TAB 1000 MG PO (20:40)
[2022-03-29] MEDS: guaiFENesin 200 MG/10 ML CUP 100 MG PO (20:40)
[2022-03-29] MEDS: Benzonatate 200 MG CAP PO (20:40)
[2022-03-29] MEDS: Pravastatin 40 MG TAB PO (20:40)
[2022-03-29] MEDS: Melatonin 3 MG TAB PO (22:55)
[2022-03-30] VITALS (10 sets, daily range): BP systolic 100–130; BP diastolic 60–89; PULSE 60–84; RESP 18–20; TEMP 36.6–37.8; O2SAT 95–97
[2022-03-30] MEDS: Acetaminophen 500 MG TAB 1000 MG PO ×2 (04:21→23:26)
[2022-03-30 06:17] LABS: Abs Immature Grans 0.01 10^3/uL (0.0-0.06); Absolute Basophil Count 0.03 10^3/uL (0.0-0.2); Absolute Eosinophil Count 0.04 10^3/uL (0.0-0.7); Absolute Lymphocyte Count 1.51 10^3/uL (1.2-3.4); Absolute Monocyte Count 0.93 10^3/uL (0.1-0.8); Absolute Neutrophil Count 2.51 10^3/uL (1.2-6.7); Basophils % 0.6; Eosinophils % 0.8; HGB 13.8 g/dL (11.2-15.7); Immature Grans % 0.2; MCH 30.2 pg (27.0-33.0); MCHC 34.5 % (32.0-36.0); MCV 88 fL (80-95); MPV 10.2 fL (8.0-11.0); Monocytes % 18.5; Neutrophils % 49.9; Platelet Count 241 10^3/uL (130-400); RBC 4.57 10^6/uL (3.93-5.22); RDW 12.3 % (11.7-14.6); RDW-SD 39.6 fL; WBC 5.03 10^3/uL (4.4-10.8)
[2022-03-30 06:29] LABS: Prothrombin Time 10.4 sec (9.3-11.0)
[2022-03-30 06:36] LABS: Anion Gap 8.6 mmol/L (3-11); BUN 15 mg/dL (7-18); CO2 24.4 mmol/L (21.0-32.0); CREATININE 1.1 mg/dL (0.55-1.02); Calcium 8.9 mg/dL (8.5-10.1); Chloride 102 mmol/L (98-107); Estimated GFR 50.84 (mL/min/1.73m2); Glucose 91 mg/dL (74-106); Sodium 135 mmol/L (136-145)
[2022-03-30 06:43] LABS: C-Reactive Protein 5.33 mg/dL (0.0-0.3); Magnesium 2.2 mg/dL (1.8-2.4); Troponin I < 50 ng/L (<or=60)
[2022-03-30 06:51] LABS: Procalcitonin 0.2 ng/mL
[2022-03-30 06:59] LABS: D-Dimer 930 ng/mlFEU (<500)
[2022-03-30 07:07] LABS: Calculated LDL 65 mg/dL (<100); Cholesterol 132 mg/dL (<200); Ferritin 92 ng/mL (8-252); HDL Cholesterol 56 mg/dL (40-60); Triglyceride 56 mg/dL (<150)
[2022-03-30] MEDS: Zinc Sulfate 220 MG TAB PO (08:24)
[2022-03-30] MEDS: Pantoprazole 40 MG TABCR PO (08:24)
[2022-03-30] MEDS: Aspirin E.C. 81 MG TABEC PO (08:25)
[2022-03-30] MEDS: Benzonatate 200 MG CAP PO ×3 (08:25→20:57)
[2022-03-30] MEDS: Ascorbic Acid 500 MG TAB 1000 MG PO ×2 (08:25→20:57)
[2022-03-30] MEDS: guaiFENesin 600 MG TABCR PO ×2 (08:25→20:57)
[2022-03-30] MEDS: Cholecalciferol (Vitamin D3) 1,000 UNIT TAB 2000 UNITS PO (08:25)
[2022-03-30] MEDS: REMDESIVIR 100 MG in Normal Saline 250 ML 250 MG IVPB (08:26)
[2022-03-30] MEDS: Enoxaparin 40 MG/0.4 ML SYR SC (08:26)
[2022-03-30] MEDS: Normal Saline Flush 10 ML SYR IVP (08:26)
--- NOTE | 2022-03-30 16:37 | PGE_ITS ---
Date of Service Date of service: 03/30/22 Time of Service: 16:37 Assessment and Plan Assessment and plan (1) Chest pain: Status: Acute Assessment and plan: ? unstable angina. Description of pain today also suggests bronchospasm. Will trial xopenex inhaler. For echo and MPI stress tomorrow (as recommended by [facility] cardiology). Will continue to monitor the patient on tele. Will repeat troponin in am. (2) CAD (coronary artery disease): Status: Chronic Assessment and plan: The patient is s/p cardiac cath at [facility] on 03/25/22. Per cardiology, the patient does have a vessel with 70% stenosis that was not stented that could be the culprit of the pain. As above - for echo and MPI stress test tomorrow. (3) COVID-19: Status: Acute Assessment and plan: The patient is considered high risk for severe disease and is receiving remdesivir therapy (day 2/3) continue vitamin c, d, zinc. Encourage IS, a capella. Antitussives. Proning. Add prn levalbuterol. (4) Obstructive sleep apnea syndrome: Status: Chronic Assessment and plan: Does not use CPAP. Continue to mointor O2 sats (5) DVT prophylaxis: Status: Acute Assessment and plan: Lovenox (6) Discharge planning issues: Status: Acute Assessment and plan: Full code Possible discharge home tomorrow if Echo/MPI negative. Alternatively, would need to be transferred back to [facility]. Subjective Subjective Interval history since last seen: Ms Funk describes her chest discomfort as tightness today. Overall, she feels a little bit better today. She still has a dry cough. Antitussives are helping. Afebrile. Tmax 37.9 at 4 pm last night. No other complaints today, including h/a, shortness of breath, nausea. Does endorse exertional intolerance for several weeks prior to her cariac cath. Exam Narrative Exam Narrative: General: Pleasant female who is in good spirits, sitting up in bed, no dyspnea/tachypnea/cyanosis, coughs rarely (dry) HEENT: EOMI, MMM Heart: RRR, no m/r/g Lungs: Diminished breath sounds B Abdomen: nondistended Extremities: no edema BLEs Objective Last Vital Signs Temp 36.8 C 03/30/22 15:39 Pulse 64 08/03/22 15:39 Resp 18 03/30/22 15:39 BP 118/76 03/30/22 15:39 Pulse Ox 96 03/30/22 15:39 Laboratory Results - last 24 hr 03/30/22 03/30/22 03/30/22 05:15 05:15 05:15 WBC RBC Hgb Hct MCV MCH MCHC RDW Plt Count MPV Immature Gran % Neutrophils % Lymphocytes % Monocytes % Eosinophils % Basophils % Nucleated RBC % Absolute Neutrophils Absolute Lymphocytes Absolute Monocytes Absolute Eosinophils Absolute Basophils PT INR D-Dimer Sodium 135 L Potassium 4.0 Chloride 102 Carbon Dioxide 24.4 Anion Gap 8.6 BUN 15 Creatinine 1.1 H Estimated GFR/1.73 m2 50.84 Glucose 91 Calcium 8.9 Magnesium 2.2 Ferritin 92 Troponin I < 50 C-Reactive Protein 5.33 H Triglycerides 56 Total Cholesterol 132 LDL Cholesterol, Calc 65 HDL Cholesterol 56 Procalcitonin 0.2 03/30/22 03/30/22 05:15 05:15 WBC 5.03 RBC 4.57 Hgb 13.8 Hct 40.0 MCV 88 MCH 30.2 MCHC 34.5 RDW 12.3 Plt Count 241 MPV 10.2 Immature Gran % 0.2 Neutrophils % 49.9 Lymphocytes % 30.0 Monocytes % 18.5 Eosinophils % 0.8 Basophils % 0.6 Nucleated RBC % 0.0 Absolute Neutrophils 2.51 Absolute Lymphocytes 1.51 Absolute Monocytes 0.93 H Absolute Eosinophils 0.04 Absolute Basophils 0.03 PT 10.4 INR 1.0 D-Dimer 930 H Sodium Potassium Chloride Carbon Dioxide Anion Gap BUN Creatinine Estimated GFR/1.73 m2 Glucose Calcium Magnesium Ferritin Troponin I C-Reactive Protein Triglycerides Total Cholesterol LDL Cholesterol, Calc HDL Cholesterol Procalcitonin
[2022-03-30] MEDS: Levalbuterol HFA 15 GM INH 2 PUFF IH (17:08)
--- NOTE | 2022-03-30 18:01 | CMPROGNOTE_ITS ---
- If Service Date Differs Date of service: 03/30/22 Time of Service: 18:01 Care Management Progress Note S/O: Monae is being closely monitored on Covid precautions. Per report, she will have an echo today, and will plan to have an MPI stress test tomorrow, as recommended by [facility]. Cardio has been consulted. She continues to have chest pain. She is high risk for severe Covid and is receiving remdesivir therapy. CM will continue to follow. A: Monae is a 61 year old female admitted to [facility] on 03/28/22 for chest pain. P: Anticipate Monae will return home when medically cleared. Her will drive her home via private vehicle when ready. She will follow up with her PCP and discharge plan of care. CM will continue to follow.
[2022-03-30] MEDS: Pravastatin 40 MG TAB PO (20:57)
[2022-03-30] MEDS: Metoprolol 25 MG TAB PO (23:26)
[2022-03-30] MEDS: Melatonin 3 MG TAB PO (23:26)
[2022-03-31 03:18] VITALS: BP 100/60; PULSE 60; RESP 20; TEMP 36.7; O2SAT 95
[2022-03-31] MEDS: guaiFENesin 200 MG/10 ML CUP 100 MG PO (03:23)
[2022-03-31 05:46] LABS: Vitamin D 25 Total 40.2 ng/mL (30-100)
[2022-03-31 07:00] VITALS: PULSE 53
[2022-03-31 07:30] LABS: Abs Immature Grans 0.01 10^3/uL (0.0-0.06); Absolute Basophil Count 0.05 10^3/uL (0.0-0.2); Absolute Eosinophil Count 0.12 10^3/uL (0.0-0.7); Absolute Lymphocyte Count 1.88 10^3/uL (1.2-3.4); Absolute Neutrophil Count 1.83 10^3/uL (1.2-6.7); Basophils % 1.1; Eosinophils % 2.6; HCT 41.5 % (36.0-46.0); HGB 13.8 g/dL (11.2-15.7); Immature Grans % 0.2; MCH 29.8 pg (27.0-33.0); MCHC 33.3 % (32.0-36.0); MCV 90 fL (80-95); MPV 10.2 fL (8.0-11.0); Monocytes % 15.3; Neutrophils % 39.8; Platelet Count 252 10^3/uL (130-400); RBC 4.63 10^6/uL (3.93-5.22); RDW 12.1 % (11.7-14.6); RDW-SD 39.9 fL; WBC 4.59 10^3/uL (4.4-10.8)
[2022-03-31 07:41] LABS: Prothrombin Time 10.1 sec (9.3-11.0)
--- NOTE | 2022-03-31 08:00 | DI.NM_ITS ---
APPROVED REPORT Exam: Pharmacologic Patient Location: In-Patient Room/Bed: [facility] Stress Nurse: Radha Hugo RN Ordering Provider:JENNIE FARMER, Contact Number: [phone] BMI: 30.90 Baseline Rhythm: Sinus Rhythm Indications: Chest pain post cardiac cath 03/25/22 at [facility], COVID positive Medical History Medical History: Positive cardiac stress test. HTN. GERD. YARITZA. HLD. Cardiac Medications: Aspirin. Metoprolol tartrate. Nitroglycerin. Protonix. Pravastatin. Olmesartan. Prasugrel. Allergies: Sulfa Cardiac Risk Factors: HTN. HLD. Previous Cardiac Procedures: Cardiac cath with cardiac one stent on 03/25/22 at [facility] Pretest Chest Pain Characteristics: Non-exertional Chest pain Exercise History: Indeterminate Physical Disabilities: None Lung Sounds: Diminished bilateral bases. Heart Sounds: Regular Stress Test Details Test: Pharmacologic stress testing performed using 0.4 mg of regadenoson per 5 mL given IV over 10 s econds. Reason for pharmacologic stress test: physical limitation. Nuclear Acquisition: Rest Tc-99m/Stress Tc-99m 1 day Rest Isotope: Tc-99m Sestamibi. Dose: 10.0 Date: 03/31/2022 Injection Time: 1135 Stress Isotope: Tc-99m Sestamibi. Dose: 32.8 Date: 03/31/2022 Injection Time: 1315 HR Resting HR Supine: 54 bpm Max Heart Rate (APMHR): 161.228346 bpm Target HR (85% APMHR): 136.544364 bpm Recovery HR: 85 bpm BP Resting BP Supine: 132/82 mmHg Max BP: 162/74 mmHg Recovery BP: 130/78 mmHg ECG Resting ECG: Sinus Rhythm Ectopy: none Stress ECG: Sinus Tachycardia ST Change: Nondiagnostic low heart rate Arrhythmia: None Recovery ECG: Sinus Rhythm Recovery ST Change: No significant ST segment changes noted Recovery Arrhythmia: VPC Clinical Stress Symptoms: Dyspnea Rate Pressure Product: 0 Stress ECG Conclusion 1. Resting electrocardiogram was within normal limits 2. Patient underwent testing with pharmacologic stress with regadenoson 3. The electrocardiographic portion of the test was nondiagnostic due to inadequate heart rate 4. There are no significant dysrhythmias 5. See MPI report Stress Test Summary STAGE HR BP SpO2 Symptoms NOTES Supine 54 132/82 1 min post Lexiscan injection 118 162/74 SOB 3 min post Lexiscan injection 101 142/78 SOB subsided. 6 min post Lexiscan injection 85 130/78 MPI Conclusion Myocardial perfusion is normal without evidence of ischemia or prior infarction EF is 59%, wall motion is normal Radiologist Interpretation Radiologist agrees with [employer]'s Interpretation. Radiologist Interpretation by: Monica Vizcarra MD Interpretation Date/Time: 03/31/2022 16:51:24
--- NOTE | 2022-03-31 08:00 | DI.US_ITS ---
APPROVED REPORT EXAM: Comprehensive 2D, Doppler, and color-flow Echocardiogram Patient Location: In-Patient Room/Bed: 217 Indications: chest pain, H/O recent Cath and stent, COVID Other Information Study Quality: Adequate. Technically limited study due to inability to position patient exam done sup ine bedside. Conclusion Normal left ventricular wall thickness and chamber size. Estimated ejection fraction is 60%. Wall m otion is normal The right ventricle was not well visualized Both atria are normal in size There is no structural or hemodynamically significant valvular disease Estimated right ventricular systolic pressure is 20 mmHg Borderline dilated ascending aorta measuring 3.31 cm Wall motion Left Ventricle The left ventricle is normal size. The left ventricular systolic function is normal. The left ventric ular ejection fraction is within the normal range. There is normal left ventricular wall thickness. T here is normal LV segmental wall motion. There is no ventricular septal defect visualized. LVEF is 60 %. Right Ventricle Right ventricle is not well visualized. Right ventricular systolic function could not be assessed. Th e RVSP is 19.7 mmHg. Atria The left atrium size is normal. The right atrium size is normal. The interatrial septum is intact wit h no evidence for an atrial septal defect. Aortic Valve The aortic valve is normal in structure. Aortic valve is trileaflet. There is no aortic valvular sten osis. No aortic regurgitation is present. Mitral Valve The mitral valve is normal in structure. No evidence of mitral valve stenosis. Trace to mild mitral r egurgitation. Tricuspid Valve The tricuspid valve is normal in structure. There is no tricuspid valve stenosis. Trace tricuspid reg urgitation. Pulmonic Valve The pulmonary valve is normal in structure. There is no pulmonic valvular stenosis. There is no pulmo flavio valvular regurgitation. Great Vessels The aortic root is normal in size. The ascending aorta is borderline dilated. Aortic arch is not well visualized. IVC is normal in size and collapses >50% with inspiration. Pericardium There is no pericardial effusion. 2D Dimensions IVSD d PLAX 0.85 cm F: 0.6-1.0 LV Vol A2C d MOD 80.4 mL LVPW d PLAX 0.87 cm F: 0.6 - 1.0 LV Vol A4C d MOD 91.3 mL LVID d PLAX 4.80 cm F: 3.8 - 5.2 LV EF A4C MOD 60.2 % LVDs 3.15 cm F: 2.2 - 3.5 LV EF A2C MOD 61.2 % Ao Root d 2.58 cm F: 2.7 - 3.3 LV EF Biplane MOD 61.2 % Ao Asc Diam d 3.31 cm F: 2.3 - 3.1 SV 55.16 mL LV EF Teichholz 62.0 % SV Index 31.16 mL/m2 LVEF (Slater's) 61.19 % F: 54 - 74 LV Volume 70.53 mL F: 46 - 106 LV Volume Index 39.84 mL/m2 F: 29 - 61 LV Vol Biplane MOD 90.1 mL FS 33.40 % M-Mode TAPSE 2.45 cm (M/F) >1.7 LV Diastology MV E' medial 0.078 (>0.07 m/s) E/A Ratio 1.0 LV E/e MED 5.80 (<14) MV E Vmax 0.46 (0.4-1.3 m/s) MV E' lateral 0.105 (>0.1 m/s) MV A Vmax 0.45 (0.4-1.3 m/s) LV E/e LAT 4.30 (<14) MV E/A Ratio 0.93 MV E/E' medial 5.83 MV E/E' lateral 4.34 Aortic Valve LVOT Area 2.93 cm2 AoV Area Vmax 2.31 cm2 LVOT Vmax 0.90 m/s AoV Area/ BSA (Vmax) 1.30 cm2/m2 LVOT Mean Luis. 0.55 m/s LISET Mean Luis. 2.05 cm2 LVOT Peak Grad 3.3 mmHg LISET Mean Luis. Index 1.16 cm2/m2 LVOT Mean Grad 1.5 mmHg LVOT VTI 0.220 m LVOT Diam s 1.90 cm AoV Vmax 1.15 m/s Velocity Ratio 0.78 AoV Mean Luis. 0.78 m/s AoV Peak Grad 5.3 mmHg LVOT SV 64.46 mL AoV Mean Grad 2.8 mmHg AoV VTI 0.258 m AoV Area VTI 2.50 cm2 AoV Area/ BSA (VTI) 1.41 cm/m2 Mitral Valve MV DT 294 (160-240 msec) MV PHT 85 msec MV Area PHT 2.58 cm2 Pulmonary Valve PV Vmax 0.98 (0.5-1.5 m/s) RVOT Peak Gr. 2.03 mmHg PV Peak Grad 3.8 mmHg RVOT Mean Gr. 0.90 mmHg PV Mean Grad 1.9 mmHg RVOT VTI 0.146 m PV VTI 0.224 m RVOT Vmax 0.71 m/s Tricuspid Valve TR Peak Grad 16.7 mmHg TR Vmax 2.04 m/s RA Pressure 3.00 mmHg RVSP (TR) 19.7 mmHg
[2022-03-31 08:10] VITALS: BP 123/72; PULSE 59; RESP 12; TEMP 36.9; O2SAT 98
[2022-03-31] MEDS: Aspirin E.C. 81 MG TABEC PO (08:15)
[2022-03-31] MEDS: Benzonatate 200 MG CAP PO ×2 (08:15→13:59)
[2022-03-31] MEDS: Enoxaparin 40 MG/0.4 ML SYR SC (08:15)
[2022-03-31 08:16] LABS: Anion Gap 8.5 mmol/L (3-11); BUN 13 mg/dL (7-18); CO2 26.5 mmol/L (21.0-32.0); CREATININE 0.9 mg/dL (0.55-1.02); Calcium 8.7 mg/dL (8.5-10.1); Chloride 105 mmol/L (98-107); Ferritin 127 ng/mL (8-252); Glucose 91 mg/dL (74-106); Magnesium 2.4 mg/dL (1.8-2.4); Potassium 4.2 mmol/L (3.5-5.1); Sodium 140 mmol/L (136-145); Troponin I < 50 ng/L (<or=60)
[2022-03-31] MEDS: Normal Saline Flush 10 ML SYR IVP ×2 (08:16→10:06)
[2022-03-31] MEDS: Pantoprazole 40 MG TABCR PO (08:16)
[2022-03-31] MEDS: guaiFENesin 600 MG TABCR PO (08:16)
[2022-03-31] MEDS: REMDESIVIR 100 MG in Normal Saline 250 ML 250 MG IVPB (08:21)
[2022-03-31 08:34] LABS: C-Reactive Protein 2.76 mg/dL (0.0-0.3)
[2022-03-31 08:44] LABS: D-Dimer 813 ng/mlFEU (<500)
[2022-03-31 11:27] VITALS: BP 107/74; PULSE 66; RESP 16; TEMP 36.8; O2SAT 94
[2022-03-31] MEDS: Ascorbic Acid 500 MG TAB 1000 MG PO (13:58)
[2022-03-31] MEDS: Zinc Sulfate 220 MG TAB PO (14:00)
[2022-03-31] MEDS: Cholecalciferol (Vitamin D3) 1,000 UNIT TAB 2000 UNITS PO (14:00)
[2022-03-31] MEDS: Regadenoson 0.4 MG/5 ML SYR IVP (14:07)
[2022-03-31 14:59] VITALS: PULSE 66
[2022-03-31] MEDS: Levalbuterol HFA 15 GM INH 2 PUFF IH (15:12)
[2022-03-31 15:17] VITALS: BP 132/98; PULSE 76; RESP 16; TEMP 37; O2SAT 97
--- NOTE | 2022-03-31 16:36 | W.PM.DS.N ---
Date of service: 03/31/22 Time of Service: 16:36 DS: Diagnosis Discharge Diagnosis (1) Chest pain: Status: Deleted Asessment and Plan: 61-year-old female with history of coronary artery disease with an abnormal stress test 2 weeks prior to admission had a cardiac catheterization 4 days prior to admission with a single stent. She presents on this admission with mild and transient chest pain for the last couple days on the day of admission and lasted for several hours prompting her ER visit. Patient was found to have no response to nitroglycerin series of 3 troponins were obtained and all were negative. EKG showed no ischemic changes. She was admitted to the hospital for further evaluation of her chest pain. She underwent a stress MPI and echocardiogram on the March 31, 2022. She had a CT scan and chest x-ray on admission. Chest CTA of her chest showed no pulmonary embolism or thoracic aortic aneurysm or dissection. Chest x-ray showed no acute pulmonary pathology. Echocardiogram showed normal left ventricular size and function with an EF of 60% with no wall motion abnormalities. RV was not well visualized. She had no hemodynamically or structurally significant valvular disease. Stress MPI was performed on 03/31/2022 finalized written report is still pending at this time but verbal report received from Dr. Camille Espinosa, yardage tufting machine operator, indicated that it was normal. Patient continued to have intermittent chest pains and bandlike fashion across the anterior chest under both breasts that was exacerbated by coughing. As part of her hospital work-up she had routine labs including a CBC and CMP all of which were unremarkable however she was found to have a mildly elevated CRP of 5.33 that was repeated and remained slightly elevated 2.76. Nasal PCR for COVID-19 came back positive and she was treated with 3 days of Remdesivir. Patient did not have any hypoxemia or infiltrates on radiologic imaging. Patient's chest pain was deemed to be nonischemic in origin possibly costochondral from her cough. She was told that she can take Tylenol for the discomfort. She was instructed to follow-up with her yardage tufting machine operator and her primary care provider. (2) CAD (coronary artery disease): Status: Chronic Asessment and Plan: Continue current home treatment of aspirin 81 mg daily prasugrel 10 mg nightly and pravastatin 40 mg nightly along with metoprolol tartrate 25 mg nightly and olmesartan 20 mg daily. (3) COVID-19: Status: Acute Asessment and Plan: Patient completed 3 days of Remdesivir treatment Including 200 mg on March 29, 2022 and subsequent infusions of 100 mg on 03/30/2022 and a 422. (4) Obstructive sleep apnea syndrome: Status: Chronic Asessment and Plan: Patient will follow up with her PCP regarding treatment of her YARITZA Discharge Plan Disposition Patient Disposition: HOME Condition: Improving Discharge Details Reason For Visit: Chest pain,Covid-19 Admit Date/Time: 03/30/22 16:50 Admit Provider: Moi Cherry Attending Provider: Moi Cherry Primary Care Provider: Radha Estrella Home Meds and New Rx's Prescriptions: Continued olmesartan 20 mg tablet 20 mg PO DAILY Qty: 90 3RF pantoprazole [Protonix] 40 mg tablet,delayed release (DR/EC) 40 mg PO DAILY nitroglycerin 0.4 mg tablet, sublingual 0.4 mg sublingual Q5-15M PRN (Reason: chest pain) Qty: 25 0RF Rx Instructions: take as needed q 5 mins for c/p until gone if take 3 pills and pain persists, call aspirin 81 mg tablet,delayed release (DR/EC) 81 mg PO DAILY Qty: 90 3RF pravastatin 10 mg tablet 40 mg PO HS prasugrel 10 mg Tablet 10 mg PO HS metoprolol tartrate 25 mg Tablet 25 mg PO HS Discharge Instructions Instructions: Chest Pain (DC), Costochondritis (DC), COVID-19 (Coronavirus Disease 2019) (DC), COVID-19: Slow the Coronavirus Spread (DC), Face Coverings (Masks) and COVID-19 (DC) Additional Instructions: You may take Acetaminophen (Tylenol) extra strength (500 mg) two tablets three times daily for chest wall pain as needed. If you have symptoms of high fever, shortness of breath or worsening chest pain particularly if associated w/ shortness of breath, acute sweating, nausea or vomiting or radiating chest pain into your jaw, neck or back or arms; do not hesitate to use your nitroglycerin and call 911. During this admission you had serial troponin I levels (heart muscle enzymes) which were measured and were normal indicating that you did not have a heart attack with this admission. You had a CT angiogram of your chest that did not show any aortic aneurysm nor any blood clots in your lungs. You had an echocardiogram (ultrasound of your heart) that showed normal function of your heart. You had a nuclear stress test that was ready by a yardage tufting machine operator, Dr. Camille Espinosa and was interpreted as normal. You should follow up with your primary care provider in the next 1 to 2 weeks and keep your scheduled follow up with your yardage tufting machine operator. You were diagnosed with COVID -19 infection but your oxygen levels are good and there is no pneumonia on your CT scan of your chest. Your were treated w/ an antiviral called Remdesivir. This should take care of the acute infection although you may have lingering symptoms for a few weeks including cough, chest tightness, muscle aches, headaches. Get a pulse oximeter and monitor your oxygen levels at home. You should wear a mask if any household family members are in the room with you and you should try to isolate yourself for the next 7 to 10 days. Return to the ER if you have worsening shortness of breath, fevers. Stand Alone Forms: Nursing Discharge Form Referrals: Radha Estrella MD [Primary Care Provider] - (PLEASE CALL OFFICE TOMORROW FOR FOLLOW-UP APPOINTMENT.) Activity:: Activity as Tolerated Equipment/Supplies:: No Equipment Needed Diet:: Normal Diet Discharge Orders Discharge Orders: Discharge Order (Routine); Ordered 03/31/22 Ordered By: Rod Harp Discharge Data Discharge Date/Time-TO BE ENTERED AT DEPARTURE: 03/31/22 17:46 DS: Summary Time Spent with Patient providing and/or coordinating discharge services: Less than 30 minutes Specific discharge activities: Interview/exam of patient; review of discharge instructions, completion of prescriptions/discharge instructions; discussion w/ nursing and CM; documentation of hospital visit Status at Discharge Functional status at discharge: independent ambulation Overall status at discharge: patient is back to baseline Mental Status: mental status grossly normal Speech and Movement: speech and movement normal Mood: congruent mood Affect: normal affect Exam Narrative Exam Narrative: Monae is sitting up at the bedside not short of breath not wearing any oxygen. She describes intermittent chest tightness in a bandlike fashion underneath both breasts. Lungs are clear to auscultation Heart is regular rate and rhythm Chest wall is mildly tender Abdomen soft nontender Psych Mental Status: mental status grossly normal Speech and Movement: speech and movement normal Mood: congruent mood Affect: normal affect DS: Data Vitals/I&O Vitals and I&O: Vital Signs Temperature 37 C 03/31/22 15:17 Temperature Source Tympanic 03/31/22 15:17 Pulse 76 03/31/22 15:17 Pulse Rhythm Irregular 03/31/22 09:33 Pulse 65 03/28/22 21:20 Respiratory Rate 16 03/31/22 15:17 Respiratory Effort 03/31/22 09:33 Respiratory Depth Normal 03/31/22 09:33 Respiratory Pattern Normal 03/31/22 09:33 Blood Pressure 132/98 H 03/31/22 15:17 Blood Pressure Mean 79 03/28/22 20:45 Pulse Oximetry 97 03/31/22 15:17 Oxygen Delivery Method Room Air 03/31/22 15:17 Oxygen Flow Rate 0 03/31/22 15:17 Pain Level 0 03/31/22 11:27 Intake & Output 03/30/22 03/31/22 03/31/22 23:59 11:59 23:59 Intake Total 490 / 1040 250 / 250 Balance 490 / 1040 250 / 250 Intake: IV 250 / 250 Oral 490 / 790 Other: Urine Color Yellow Urine Appearance Clear Clear Comment patient voids independently pT uses toilet independently. Voiding Methods Toilet Toilet Data Completed and Pending Labs on day of discharge: Labs from last 24 hours 03/31/22 03/31/22 03/31/22 06:54 06:54 06:54 WBC 4.59 RBC 4.63 Hgb 13.8 Hct 41.5 MCV 90 MCH 29.8 MCHC 33.3 RDW 12.1 Plt Count 252 MPV 10.2 Immature Gran % 0.2 Neutrophils % 39.8 Lymphocytes % 41.0 Monocytes % 15.3 Eosinophils % 2.6 Basophils % 1.1 Nucleated RBC % 0.0 Absolute Neutrophils 1.83 Absolute Lymphocytes 1.88 Absolute Monocytes 0.70 Absolute Eosinophils 0.12 Absolute Basophils 0.05 PT 10.1 INR 1.0 D-Dimer 813 H Sodium 140 Potassium 4.2 Chloride 105 Carbon Dioxide 26.5 Anion Gap 8.5 BUN 13 Creatinine 0.9 Estimated GFR/1.73 m2 >= 60.00 Glucose 91 Calcium 8.7 Magnesium 2.4 Ferritin 127 Troponin I < 50 C-Reactive Protein 2.76 H 25-OH Vitamin D Total 03/30/22 05:15 WBC RBC Hgb Hct MCV MCH MCHC RDW Plt Count MPV Immature Gran % Neutrophils % Lymphocytes % Monocytes % Eosinophils % Basophils % Nucleated RBC % Absolute Neutrophils Absolute Lymphocytes Absolute Monocytes Absolute Eosinophils Absolute Basophils PT INR D-Dimer Sodium Potassium Chloride Carbon Dioxide Anion Gap BUN Creatinine Estimated GFR/1.73 m2 Glucose Calcium Magnesium Ferritin Troponin I C-Reactive Protein 25-OH Vitamin D Total 40.2 PFSH All Active Problems (Updated 04/01/22 @ 00:06 by RENAE GILLIAM) CAD (coronary artery disease) (Chronic) COVID-19 (Acute) Chest pain (Acute) Positive cardiac stress test (Acute) Fatigue due to excessive exertion (Acute) Depression (Chronic) Squamous cell skin cancer (Chronic) face dx and tx in [place] BCC (basal cell carcinoma of skin) (Chronic) Face-diagnosed /tx followed by dermatology in [place] Hemochromatosis (Chronic) Diagnosed in [place], followed by hematology there per patient had abnormal genetic testing as expected, treated with phlebotomy, followed ferritin Hyperlipidemia (Chronic) Essential hypertension (Chronic) Obstructive sleep apnea syndrome (Chronic) Medical History GERD (gastroesophageal reflux disease) History of [place]'s esophagus, EGD every 3 years, last EGD 04/2021 Osteoarthritis Bilateral hip replacement Surgical History History of bilateral tubal ligation History of colonoscopy (~2012) History of left hip replacement (~10/2019) History of right hip replacement (~07/2018) Status post lumbar laminectomy Family History Brother Cancer skin Depression Heart disease Hypertension Sister Cancer skin Depression Heart disease Hypertension Father , 72 Heart disease Hypertension Hyperlipidemia Mother Hypertension Dementia Hyperlipidemia Sister Heart disease Hypertension Hyperlipidemia Sister Heart disease Hyperlipidemia Hypertension Son , 32 of accident due to medical marijuana psychosis. No problems noted. Son No problems noted. Daughter No problems noted. 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) Pets and animals: Yes Pets and animals: dog(s) Sexually active: Yes Do you think of yourself as: straight/heterosexual Current gender identity: female What is your relationship status?: How often do you talk on the phone with friends or family?: three or more times per week How often do you get together with friends or relatives?: three or more times per week Do you belong to any clubs or organized social groups?: no Panel score (0-1 are the most socially isolated patients): 2 What type of physical activity do you participate in: walking and bicycling Duration: 15-30 minutes/day Frequency: 3-4 times per week Analia/Baptism: None Special analia needs: No Seatbelt use: always Helmet use: Yes Helmet use: always Drive intox or ride w/intox water taxi driver: No Do you feel safe at home: Yes Do you feel safe in your relationship?: Yes
--- NOTE | 2022-03-31 17:24 | PDOC.CMDIS ---
- If Service Date Differs Date of service: 03/31/22 Time of Service: 17:24 LACE Index Scoring Tool - Questions: Length of Stay (in days): 3 Acuity (Admit via E.D.?): Yes E.D. Visits: 2 - Answers: Total Score: 8 Risk of Readmission: Low Risk Care Management Discharge Reason for Hospitalization: Chest Pain Discharge Plan: Monae will return home today with no new services. Her will drive her home via private vehicle. She will follow up with her PCP and discharge plan of care. Patient/Family Education Needs: Review discharge instructions and limitations, discussion of self care needs including ask me three.
[2022-04-03 16:25] VITALS: BP 132/98; PULSE 76; RESP 16; TEMP 37; O2SAT 97
== END 2022-03-31 17:46 | disposition home or self-care (01) | DRG 179 ==
LOC: ER 23:10 → MS 03-29 01:27
PROVIDERS: Internal Medicine; Admitting Provider General Practice; Emergency Provider Student in an Organized Health Care Education/Training Program; PCP Family Medicine; Visit Provider General Practice
DX: U07.1 COVID-19 (principal); R07.1 Chest pain on breathing; R94.39 Abnormal result of other cardiovascular function study; R05.8 Other specified cough; F32.A Depression, unspecified; E83.119 Hemochromatosis, unspecified; I10 Essential (primary) hypertension; G47.33 Obstructive sleep apnea (adult) (pediatric); K21.9 Gastro-esophageal reflux disease without esophagitis; Z96.643 Presence of artificial hip joint, bilateral; I25.10 Atherosclerotic heart disease of native coronary artery without angina pectoris; Z95.5 Presence of coronary angioplasty implant and graft; Z79.82 Long term (current) use of aspirin; T73.3XXA Exhaustion due to excessive exertion, initial encounter
CPT/HCPCS: 36415; 71275; 78452; 80048; 80053; 80061; 82306; 84145; 87635; 93005; 93306; 94640; 96361; 96365; 96366; 99285; J1650; 71045; 82728; 83735; 84484; 85025; 85379; 85610; 86140; 93010; 93016; 93017; 94667; 99219; 99225; 99233; 99238; G0378; J0248; J1644; J2785; J3490

== ENCOUNTER 2022-04-03 10:56 | Emergency (ER) | payer BC, SELFPAY ==
[2022-04-03 11:11] VITALS: BP 175/85; PULSE 90; RESP 18; TEMP 36.8; O2SAT 98
--- NOTE | 2022-04-03 11:15 | RT.EKG_ITS ---
APPROVED REPORT Exam: Resting ECG Reason for Exam: chest tightness Patient Location: E HR:52 bpm ECG Measurements Heart Rate 52 AXIS TN 168 P 39 QRSd 73 QRS 15 QT 420 T 16 QTc 392 Conclusion Sinus bradycardia...rate< 60
[2022-04-03] MEDS: Dexamethasone 4 MG/ML VIAL IVP (12:44)
[2022-04-03 12:51] LABS: Abs Immature Grans 0.01 10^3/uL (0.0-0.06); Absolute Basophil Count 0.03 10^3/uL (0.0-0.2); Absolute Eosinophil Count 0.04 10^3/uL (0.0-0.7); Absolute Lymphocyte Count 2.06 10^3/uL (1.2-3.4); Absolute Monocyte Count 0.46 10^3/uL (0.1-0.8); Absolute Neutrophil Count 4.27 10^3/uL (1.2-6.7); Basophils % 0.4; Eosinophils % 0.6; HCT 43.1 % (36.0-46.0); HGB 14.5 g/dL (11.2-15.7); Immature Grans % 0.1; MCH 29.8 pg (27.0-33.0); MCHC 33.6 % (32.0-36.0); MCV 89 fL (80-95); Monocytes % 6.7; Neutrophils % 62.2; Platelet Count 272 10^3/uL (130-400); RBC 4.87 10^6/uL (3.93-5.22); RDW 11.9 % (11.7-14.6); RDW-SD 38.2 fL; WBC 6.87 10^3/uL (4.4-10.8)
[2022-04-03 12:52] VITALS: RESP 1
[2022-04-03] MEDS: Albuterol/Ipratropium 3 ML UPD VIAL UPD (12:52)
[2022-04-03 13:06] LABS: ALT 40 U/L (14-59); AST 26 U/L (15-37); Albumin 4.3 g/dL (3.4-5.0); Alkaline Phosphatase 82 U/L (46-116); Anion Gap 7.8 mmol/L (3-11); BUN 14 mg/dL (7-18); Bilirubin, Total 0.4 mg/dL (0.2-1.0); CO2 29.2 mmol/L (21.0-32.0); CREATININE 1.1 mg/dL (0.55-1.02); Calcium 9.3 mg/dL (8.5-10.1); Chloride 103 mmol/L (98-107); Estimated GFR 50.84 (mL/min/1.73m2); Glucose 87 mg/dL (74-106); Potassium 4.2 mmol/L (3.5-5.1); Sodium 140 mmol/L (136-145); Total Protein 7.8 g/dL (6.4-8.2); Troponin I < 50 ng/L (<or=60)
[2022-04-03 13:46] LABS: D-Dimer 478 ng/mlFEU (<500)
--- NOTE | 2022-04-03 14:30 | RT.EKG_ITS ---
APPROVED REPORT Exam: Resting ECG Reason for Exam: chest pain Patient Location: E HR:75 bpm ECG Measurements Heart Rate 75 AXIS OH 160 P 20 QRSd 85 QRS 26 QT 405 T 31 QTc 412 Conclusion Sinus rhythm...normal P axis, V-rate 60- 99 Multiple ventricular premature complexes...V complexes w/ short R-R intervls
--- NOTE | 2022-04-03 15:45 | W.ED.GENAD ---
Discharge Plan Disposition Patient Disposition: HOME Condition: Stable Discharge Details Clinical Impression: COVID-19, Chest pain Primary Care Provider: Radha Estrella ED Provider: Gabby Grissom Home Meds and New Rx's Prescriptions: New prednisone 20 mg tablet 40 mg PO DAILY 3 Days Qty: 6 0RF lorazepam [Ativan] 1 mg tablet 1 mg PO DAILY PRNQty: 4 0RF Continued olmesartan 20 mg tablet 20 mg PO DAILY Qty: 90 3RF metoprolol succinate 25 mg tablet extended release 24 hr 25 mg PO DAILY Label Comments: TAKE ONE TABLET BY MOUTH ONCE DAILY levalbuterol tartrate 45 mcg/actuation HFA aerosol inhaler 2 inh inhalation Q6H PRN (Reason: shortness of breath or wheezing) pantoprazole [Protonix] 40 mg tablet,delayed release (DR/EC) 40 mg PO DAILY nitroglycerin 0.4 mg tablet, sublingual 0.4 mg sublingual Q5-15M PRN (Reason: chest pain) Qty: 25 0RF Rx Instructions: take as needed q 5 mins for c/p until gone if take 3 pills and pain persists, call aspirin 81 mg tablet,delayed release (DR/EC) 81 mg PO DAILY Qty: 90 3RF pravastatin 10 mg tablet 40 mg PO HS prasugrel 10 mg Tablet 10 mg PO HS Discharge Instructions Instructions: Chest Pain (ED), Viral Syndrome (ED) Additional Instructions: Please follow-up with your primary care physician on Monday Take the prednisone as prescribed, you received tomorrow You may use your albuterol as needed for shortness of breath Please return immediately should you have new or worsening complaints Referrals: Radha Estrella MD [Primary Care Provider] - Discharge Data Discharge Date/Time-TO BE ENTERED AT DEPARTURE: 04/03/22 16:40 Medical Decision Making D-dimer negative, troponins negative x2 EKG with PVCs without any evidence of ischemia Review of prior documentation from multiple ED assessment While patient is high risk from a cardiac standpoint, her symptoms are more consistent with COVID-19 and my suspicion for cardiac etiology is low at this time I think 2 troponins are reasonable for cardiac assessment She has comfortable discharge home, will likely discharge with Ativan and prednisone Has an inhaler as needed Will need recheck on Monday return precautions discussed and pt expressed understanding Medical Records Medical records reviewed: Yes I reviewed the patient's medical records. Lab Data Lab results reviewed: Yes I reviewed the patient's lab results. HPI General Date/Time Provider Initiated Documentation: 04/03/22 11:29. HPI Narrative: This 61-year-old female presents for report of shortness of breath and some intermittent tightness. Exacerbated with deep breathing. She has a complex history and that she had recent stent placement and subsequent development of COVID-19. She had stents placed on February without incident. She went home and return to the emergency department shortly thereafter and had developed some persistent pain. She was diagnosed with COVID-19 at that time and admitted to the hospital where she received remdesivir. She was reportedly feeling mild improvement but over the course of the past several days has felt some pressure and shortness of breath. She denies any chest discomfort. She denies any calf pain or swelling. Her fevers have abated. She denies history of asthma or COPD. She denies any hemoptysis. Related Data Home Medications Medication Instructions Recorded Confirmed olmesartan 20 mg tablet 20 mg PO DAILY #90 tabs 07/21/21 04/01/22 pantoprazole 40 mg tablet,delayed 40 mg PO DAILY 01/11/22 04/01/22 release (Protonix) aspirin 81 mg tablet,delayed 81 mg PO DAILY #90 tabs 03/22/22 04/01/22 release nitroglycerin 0.4 mg sublingual 0.4 mg sublingual Q5-15M PRN chest 03/22/22 04/01/22 tablet pain #25 tabs prasugrel 10 mg tablet 10 mg PO HS 03/28/22 04/01/22 pravastatin 10 mg tablet 40 mg PO HS 03/28/22 04/01/22 levalbuterol tartrate 45 2 inh inhalation Q6H PRN shortness 04/01/22 04/01/22 mcg/actuation aerosol inhaler of breath or wheezing metoprolol succinate 25 mg 25 mg PO DAILY 04/01/22 04/01/22 tablet,extended release 24 hr lorazepam 1 mg tablet (Ativan) 1 mg PO DAILY PRN #4 tabs 04/03/22 prednisone 20 mg tablet 40 mg PO DAILY 3 days #6 tabs 04/03/22 Previous Rx's Medication Instructions Recorded olmesartan 20 mg tablet 20 mg PO DAILY #90 tabs 07/21/21 aspirin 81 mg tablet,delayed 81 mg PO DAILY #90 tabs 03/22/22 release nitroglycerin 0.4 mg sublingual 0.4 mg sublingual Q5-15M PRN chest 03/22/22 tablet pain #25 tabs lorazepam 1 mg tablet (Ativan) 1 mg PO DAILY PRN #4 tabs 04/03/22 prednisone 20 mg tablet 40 mg PO DAILY 3 days #6 tabs 04/03/22 Allergies Allergy/AdvReac Type Severity Reaction Status Date / Time Sulfa (Sulfonamide Allergy Verified 04/05/22 10:43 Antibiotics) General Stated Complaint: RespSymp LIMA: 3 Review of Systems All systems reviewed & are unremarkable except as noted in HPI and below PFSH All Active Problems (Updated 04/03/22 @ 15:52 by KLEVER Cm) Chest pain (Acute) CAD (coronary artery disease) (Chronic 03/25/22) 1 JUAN to 2nd diagnonal branch LAD COVID-19 (Acute) Depression (Chronic) Squamous cell skin cancer (Chronic) face dx and tx in [facility] (basal cell carcinoma of skin) (Chronic) Face-diagnosed /tx followed by dermatology in [place] Hemochromatosis (Chronic) Diagnosed in [place], followed by hematology there per patient had abnormal genetic testing as expected, treated with phlebotomy, followed ferritin. Hyperlipidemia (Chronic) Essential hypertension (Chronic) Obstructive sleep apnea syndrome (Chronic) Medical History (Updated 04/03/22 @ 15:52 by KLEVER Cm) GERD (gastroesophageal reflux disease) History of [place]'s esophagus, EGD every 3 years, last EGD 04/2021 Osteoarthritis Bilateral hip replacement Surgical History History of bilateral tubal ligation History of colonoscopy (~2012) History of left hip replacement (~10/2019) History of right hip replacement (~07/2018) Status post lumbar laminectomy Family History Brother Cancer skin Depression Heart disease Hypertension Sister Cancer skin Depression Heart disease Hypertension Father , 72 Heart disease Hypertension Hyperlipidemia Mother Hypertension Dementia Hyperlipidemia Sister Heart disease Hypertension Hyperlipidemia Sister Heart disease Hyperlipidemia Hypertension Son , 32 of accident due to medical marijuana psychosis. No problems noted. Son No problems noted. Daughter No problems noted. 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[employer]) Pets and animals: Yes Pets and animals: dog(s) Sexually active: Yes Do you think of yourself as: straight/heterosexual Current gender identity: female What is your relationship status?: How often do you talk on the phone with friends or family?: three or more times per week How often do you get together with friends or relatives?: three or more times per week Do you belong to any clubs or organized social groups?: no Panel score (0-1 are the most socially isolated patients): 2 What type of physical activity do you participate in: walking and bicycling Duration: 15-30 minutes/day Frequency: 3-4 times per week Analia/Pentecostalism: None Special analia needs: No Seatbelt use: always Helmet use: Yes Helmet use: always Drive intox or ride w/intox customer service driver: No Do you feel safe at home: Yes Do you feel safe in your relationship?: Yes Exam Const General: cooperative, comfortable and no acute distress HENMT Head: normal to inspection Resp Effort & Inspection: normal respiratory effort Auscultation: clear to auscultation bilaterally Cardio Rate: regular rate Rhythm: regular rhythm GI Inspection: normal to inspection Skin General skin exam: no rashes or lesions noted Neuro General: patient alert and patient oriented x3 Extrem Other: no calf swelling or tenderness distal pulses intact Course Vital Signs Vital signs: Vital Signs Temperature 36.8 C 04/03/22 11:11 Pulse 90 04/03/22 11:11 Respiratory Rate 18 04/03/22 11:11 Blood Pressure 175/85 H 04/03/22 11:11 Pulse Oximetry 98 04/03/22 11:11 Temperature 36.8 C 04/03/22 11:11 Temperature Source Temporal Artery Scan 04/03/22 11:11 Pulse 90 04/03/22 11:11 Respiratory Rate 18 04/03/22 11:11 Respiratory Effort 04/03/22 13:27 Respiratory Depth Normal 04/03/22 13:27 Blood Pressure 175/85 H 04/03/22 11:11 Blood Pressure Position Sitting 04/03/22 11:11 Pulse Oximetry 98 04/03/22 11:11 Oxygen Delivery Method Room Air 04/03/22 11:11 Oxygen Flow Rate 0 04/03/22 11:11 Pain Level 0 04/03/22 11:11 Lab/Test Results Lab/Test Results: Laboratory Tests Range/Units 04/03/22 04/03/22 04/03/22 11:52 11:52 11:52 WBC (4.4-10.8) 10^3/uL 6.87 RBC (3.93-5.22) 10^6/uL 4.87 Hgb (11.2-15.7) g/dL 14.5 Hct (36.0-46.0) % 43.1 MCV (80-95) fL 89 MCH (27.0-33.0) pg 29.8 MCHC (32.0-36.0) % 33.6 RDW (11.7-14.6) % 11.9 Plt Count (130-400) 10^3/uL 272 MPV (8.0-11.0) fL 10.0 Immature Gran % 0.1 Neutrophils % 62.2 Lymphocytes % 30.0 Monocytes % 6.7 Eosinophils % 0.6 Basophils % 0.4 Nucleated RBC % (0.0-0.3) % 0.0 Absolute Neutrophils (1.2-6.7) 10^3/uL 4.27 Absolute Lymphocytes (1.2-3.4) 10^3/uL 2.06 Absolute Monocytes (0.1-0.8) 10^3/uL 0.46 Absolute Eosinophils (0.0-0.7) 10^3/uL 0.04 Absolute Basophils (0.0-0.2) 10^3/uL 0.03 D-Dimer (<500) ng/mlFEU 478 Sodium (136-145) mmol/L 140 Potassium (3.5-5.1) mmol/L 4.2 Chloride (98-107) mmol/L 103 Carbon Dioxide (21.0-32.0) mmol/L 29.2 Anion Gap (3-11) mmol/L 7.8 BUN (7-18) mg/dL 14 Creatinine (0.55-1.02) mg/dL 1.1 H Estimated GFR/1.73 m2 (mL/min/1.73m2) 50.84 Glucose (74-106) mg/dL 87 Calcium (8.5-10.1) mg/dL 9.3 Total Bilirubin (0.2-1.0) mg/dL 0.4 AST (15-37) U/L 26 ALT (14-59) U/L 40 Alkaline Phosphatase (46-116) U/L 82 Troponin I (<or=60) ng/L < 50 Total Protein (6.4-8.2) g/dL 7.8 Albumin (3.4-5.0) g/dL 4.3 Range/Units 04/03/22 17:37 WBC (4.4-10.8) 10^3/uL RBC (3.93-5.22) 10^6/uL Hgb (11.2-15.7) g/dL Hct (36.0-46.0) % MCV (80-95) fL MCH (27.0-33.0) pg MCHC (32.0-36.0) % RDW (11.7-14.6) % Plt Count (130-400) 10^3/uL MPV (8.0-11.0) fL Immature Gran % Neutrophils % Lymphocytes % Monocytes % Eosinophils % Basophils % Nucleated RBC % (0.0-0.3) % Absolute Neutrophils (1.2-6.7) 10^3/uL Absolute Lymphocytes (1.2-3.4) 10^3/uL Absolute Monocytes (0.1-0.8) 10^3/uL Absolute Eosinophils (0.0-0.7) 10^3/uL Absolute Basophils (0.0-0.2) 10^3/uL D-Dimer (<500) ng/mlFEU Sodium (136-145) mmol/L Potassium (3.5-5.1) mmol/L Chloride (98-107) mmol/L Carbon Dioxide (21.0-32.0) mmol/L Anion Gap (3-11) mmol/L BUN (7-18) mg/dL Creatinine (0.55-1.02) mg/dL Estimated GFR/1.73 m2 (mL/min/1.73m2) Glucose (74-106) mg/dL Calcium (8.5-10.1) mg/dL Total Bilirubin (0.2-1.0) mg/dL AST (15-37) U/L ALT (14-59) U/L Alkaline Phosphatase (46-116) U/L Troponin I (<or=60) ng/L Cancelled Total Protein (6.4-8.2) g/dL Albumin (3.4-5.0) g/dL
[2022-04-03 15:57] LABS: Troponin I < 50 ng/L (<or=60)
== END 2022-04-03 16:40 | disposition home or self-care (01) ==
PROVIDERS: Emergency Provider Physician Assistant; PCP Family Medicine
DX: U07.1 COVID-19 (principal); I49.3 Ventricular premature depolarization
CPT/HCPCS: 36415; 80053; 93005; 94640; 96374; 99284; 84484; 85025; 85379; 93010; J1100; J7620

== ENCOUNTER 2022-04-27 09:31 | Outpatient (RCR) | payer BC, SELFPAY | END 2022-04-27 23:59 | disposition home or self-care (01) | LOC: CR 09:31 | PROVIDERS: PCP Family Medicine; Visit Provider Internal Medicine Cardiovascular Disease | DX: Z51.89 Encounter for other specified aftercare (principal); Z95.5 Presence of coronary angioplasty implant and graft; I20.0 Unstable angina | CPT/HCPCS: S9472 ==

== ENCOUNTER 2022-05-27 10:15 | Outpatient (RCR) | payer BC, SELFPAY | END 2022-05-27 23:59 | disposition home or self-care (01) | LOC: CR 10:15 | PROVIDERS: PCP Family Medicine; Visit Provider Internal Medicine Cardiovascular Disease | DX: Z51.89 Encounter for other specified aftercare (principal); I20.0 Unstable angina; Z95.5 Presence of coronary angioplasty implant and graft | CPT/HCPCS: S9472 ==

== ENCOUNTER → 2022-06-01 01:47 | Outpatient (CLI) | payer BC, SELFPAY ==
--- NOTE | 2022-06-01 07:45 | DI.MAMMO_ITS ---
Exam(s) MAMMO SCREENING EXAM: MAMMO SCREENING CLINICAL HISTORY: screening,z12.39 TECHNIQUE: Mammograms were interpreted according to the usual protocol including computer analysis w [employer] CAD system, tomosynthesis and C-view imaging. COMPARISON: FINDINGS: The breasts are of moderate density with fairly symmetrical distribution of fibroglandular tissue. N o dominant mass or clumped microcalcification is identified in either breast. There is an an area of nodularity measuring about 11 millimeters in diameter in the lateral central p ortion of the left breast in the upper outer quadrant. Although this may just represent an intramamm cheryle lymph node, it is incompletely characterized on these images. Spot compression views of the left breast and left breast ultrasound recommended for further evaluation. No prior examinations available for comparison. IMPRESSION: Additional mammographic views of the left breast and left breast ultrasound requested as described ab smith. BI-RADS Category 0 - Assessment Incomplete: Need additional imaging evaluation Breast Density - Category B - Scattered areas of fibroglandular density
== END ==
PROVIDERS: PCP Family Medicine; Visit Provider Obstetrics & Gynecology
DX: Z12.31 Encounter for screening mammogram for malignant neoplasm of breast (principal); R92.8 Other abnormal and inconclusive findings on diagnostic imaging of breast
CPT/HCPCS: 77063; 77067

== ENCOUNTER 2022-06-17 08:16 | Outpatient (RCR) | payer BC, SELFPAY | END 2022-06-27 23:59 | disposition home or self-care (01) | LOC: CR 08:16 | PROVIDERS: PCP Family Medicine; Visit Provider Internal Medicine Cardiovascular Disease | DX: Z51.89 Encounter for other specified aftercare (principal); Z95.5 Presence of coronary angioplasty implant and graft; I20.0 Unstable angina | CPT/HCPCS: S9472 ==

== ENCOUNTER → 2022-06-22 02:34 | Outpatient (CLI) | payer BC, SELFPAY ==
--- NOTE | 2022-06-22 | DI.MAMMO_ITS ---
Exam(s) MG MAMMO SCREEN CALL BACK UNI US BREAST LT LIMITED EXAM: MG MAMMO SCREEN CALL BACK UNI CLINICAL HISTORY: F/U MAMMO, LT BREAST NODULARITY TECHNIQUE: Mammograms were interpreted according to the usual protocol including computer analysis w ith CAD system, tomosynthesis and C-view imaging. COMPARISON: FINDINGS: Additional mammographic views of the left breast and left breast ultrasound are interpreted in conjun ction. These examinations were obtained to evaluate a masslike area of increased radiodensity in the lateral aspect of the left breast seen on recent mammogram. Additional mammographic views fail to s how a discrete mass but do show some persistent asymmetric density in this area, no prior studies bi ilable for comparison. Breast ultrasound shows no evidence of a mass or cyst. IMPRESSION: The appearance is consistent with asymmetric mammary tissue. No definite mass identified. Follow-up unilateral left breast mammogram requested in 6 months. BI-RADS Category 3 - 6 month - Probably Benign Finding: Recommend follow-up mammography in 6 months Breast Density - Category B - Scattered areas of fibroglandular density
== END ==
PROVIDERS: PCP Family Medicine; Visit Provider Obstetrics & Gynecology
DX: Z12.31 Encounter for screening mammogram for malignant neoplasm of breast (principal); R92.8 Other abnormal and inconclusive findings on diagnostic imaging of breast
CPT/HCPCS: 76642; 77063; 77067

== ENCOUNTER 2022-07-11 08:03 | Outpatient (RCR) | payer BC, SELFPAY | END 2022-07-27 23:59 | disposition home or self-care (01) | LOC: CR 08:03 | PROVIDERS: PCP Family Medicine; Visit Provider Internal Medicine Cardiovascular Disease | DX: I20.0 Unstable angina (principal); Z95.5 Presence of coronary angioplasty implant and graft; Z51.89 Encounter for other specified aftercare | CPT/HCPCS: S9472 ==

== ENCOUNTER 2022-09-26 08:16 | Outpatient (RCR) | payer BC, SELFPAY | END 2022-09-27 23:59 | disposition home or self-care (01) | LOC: CR 08:16 | PROVIDERS: PCP Family Medicine; Visit Provider Internal Medicine Cardiovascular Disease | DX: I20.0 Unstable angina (principal); Z95.5 Presence of coronary angioplasty implant and graft; Z51.89 Encounter for other specified aftercare | CPT/HCPCS: S9472 ==

== ENCOUNTER 2022-10-19 08:00 | Outpatient (RCR) | payer BC, SELFPAY | END 2022-10-25 23:59 | disposition home or self-care (01) | LOC: CR 08:00 | PROVIDERS: PCP Family Medicine; Referring Provider Family Medicine; Visit Provider Internal Medicine Cardiovascular Disease | DX: I20.9 Angina pectoris, unspecified (principal); Z95.5 Presence of coronary angioplasty implant and graft; Z51.89 Encounter for other specified aftercare | CPT/HCPCS: S9472 ==

== ENCOUNTER 2022-12-29 01:14 | Outpatient (CLI) | payer BC, SELFPAY ==
--- NOTE | 2022-12-29 10:12 | DI.MAMMO_ITS ---
Exam(s) MAMMO DIAGNOSTIC UNI EXAM: MAMMO DIAGNOSTIC UNI CLINICAL HISTORY: F/U ABNL MAMMO, R92.8, 6 MO F/U,ASTMMETRIC MAMMARY TISSUE. TECHNIQUE: Craniocaudal and mediolateral oblique Full Field Digital Mammography views of the left br east with Computer Aided Diagnosis followed by Tomosynthesis. COMPARISON: Comparison is made with prior examinations. FINDINGS: Mammography/Tomosynthesis: Masses/Architectural Distortion: No suspicious masses or area of architectural distortion are seen. There has been no change in appearance of the outer left breast compared to the prior examinations. Microcalcifictions: No suspicious pleomorphic-type are seen. Skin Thickening/Nipple Retraction: None. IMPRESSION: 1. No evidence of malignancy is noted. 2. A six-month follow-up left mammogram is recommended for re-evaluation. At that time the patient s hin of the yearly right mammogram. 3. The findings were discussed with the patient on the date of the examination. BI-RADS Category 3 - 6 month - Probably Benign Finding: Recommend follow-up imaging in 6 months Breast Density - Category B - Scattered areas of fibroglandular density Breast density Category C or D implies that the patient has dense breast tissue. Dense breast tissue can make it harder to find cancer on a mammogram. Dense breast tissue is also associated with an incr eased risk of breast cancer. This information about the result of the mammogram report was provided to the patient to raise their awareness. Use this report when you speak with the patient about their risks for breast cancer, which includes their family history. At that time, you may recommend additional screening tests (Ultrasoun d or MRI) as these tests may add significant information. A negative radiographic report should not delay biopsy if a dominant or clinically suspicious mass is present. Up to ten percent of cancers are not identified on mammography. A negative report may reinforce clinical impression. Adenosis and dense breasts may obscure an underlying neoplasm. False positive reports average 6 to 10%. Patient will receive a letter notifying them of these results.
== END 2022-12-29 01:34 ==
LOC: DI 01:14
PROVIDERS: PCP Family Medicine; Visit Provider Obstetrics & Gynecology
DX: R92.8 Other abnormal and inconclusive findings on diagnostic imaging of breast (principal)
CPT/HCPCS: 77061; 77065; G0279

== ENCOUNTER → 2023-06-08 | Outpatient (CLI) | payer BC, SELFPAY ==
--- NOTE | 2023-06-08 13:47 | DI.MAMMO_ITS ---
Exam(s) MAMMO DIAGNOSTIC BI EXAM: MAMMO DIAGNOSTIC BI CLINICAL HISTORY: 6 MO F/U, F/U MAMMO, R92.8 TECHNIQUE: Bilateral full field digital CC and MLO mammographic images were obtained with 3D tomosyn thesis and utilizing computer aided detection (CAD). COMPARISON: Available for comparison. FINDINGS: Masses/Architectural Distortion: The asymmetric breast tissue in the outer left breast appears stable . No suspicious masses or new masses are seen. No areas of architectural distortion are present. Microcalcifications: No suspicious pleomorphic-type are seen. Skin Thickening/Nipple Retraction: None. IMPRESSION: 1. No significant interval change with no specific features of malignancy noted. 2. The patient should continue with screening mammography of the right breast. 3. A six-month follow-up left mammogram is requested for re-evaluation. 4. Findings were discussed with the patient on the date of the examination. BI-RADS Category 3 - 6 month - Probably Benign Finding: Recommend follow-up imaging in 6 months Breast Density - Category B - Scattered areas of fibroglandular density Breast density category C or D implies that the patient has dense breast tissue. Dense breast tissue is very common and is not abnormal but dense breast tissue can make it harder to find cancer on a ma mmogram. Also, dense breast tissue may increase their breast cancer risk. This information about the result of the mammogram report was provided to the patient to raise their awareness. Use this report when you speak with the patient about their risks for breast cancer, which includes their family hist ory. At that time, you may recommend for more screening tests (Ultrasound or MRI) as they might be us eful based on their risk. A negative radiographic report should not delay biopsy if a dominant or clinically suspicious mass is present. Up to ten percent of cancers are not identified on mammography. A negative report may reinforce clinical impression. Adenosis and dense breasts may obscure an underlying neoplasm. False positive reports average 6 to 10%. Patient will receive a letter notifying them of these results.
== END ==
PROVIDERS: PCP Family Medicine; Visit Provider Obstetrics & Gynecology
DX: Z12.31 Encounter for screening mammogram for malignant neoplasm of breast (principal); R92.8 Other abnormal and inconclusive findings on diagnostic imaging of breast
CPT/HCPCS: 77062; 77066; G0279

== ENCOUNTER → 2023-12-28 04:35 | Outpatient (CLI) | payer BC, SELFPAY ==
--- NOTE | 2023-12-28 14:19 | DI.MAMMO_ITS ---
Exam(s) MAMMO DIAGNOSTIC UNI EXAM: MAMMO DIAGNOSTIC UNI CLINICAL HISTORY: 6-month follow-up, ABNL MAMMO LT, R92.8. COMPARISON: 2021 and 2022 TECHNIQUE: Craniocaudal and mediolateral oblique Full Field Digital Mammography views of with Compu ter Aided Diagnosis followed by Tomosynthesis and breast ultrasound. FINDINGS: Mammography/Tomosynthesis: Masses/Architectural Distortion: Stable area of nodularity in lateral left breast. Architectural distortion. Microcalcifications: No suspicious pleomorphic-type are seen. Skin Thickening/Nipple Retraction: None. Left breast US: Echotexture: Normal appearance of the glandular tissue. Shadowing: No suspicious foci. Cyst: None. Solid lesions: None seen. Ductal dilation: None. IMPRESSION: 1. No evidence of malignancy is noted. 2. Unless there is more urgent need, follow-up screening mammography is recommended, bilateral screen ing due in 6 months. BI-RADS Category 2 - Benign Findings Breast Density - Category B - Scattered areas of fibroglandular density Breast density category C or D implies that the patient has dense breast tissue. Dense breast tissue is very common and is not abnormal but dense breast tissue can make it harder to find cancer on a ma mmogram. Also, dense breast tissue may increase their breast cancer risk. This information about the result of the mammogram report was provided to the patient to raise their awareness. Use this report when you speak with the patient about their risks for breast cancer, which includes their family hist ory. At that time, you may recommend for more screening tests (Ultrasound or MRI) as they might be us eful based on their risk. A negative radiographic report should not delay biopsy if a dominant or clinically suspicious mass is present. Up to ten percent of cancers are not identified on mammography. A negative report may reinforce clinical impression. Adenosis and dense breasts may obscure an underlying neoplasm. False positive reports average 6 to 10%. Patient will receive a letter notifying them of these results.
== END ==
PROVIDERS: PCP Family Medicine; Visit Provider Obstetrics & Gynecology
DX: R92.8 Other abnormal and inconclusive findings on diagnostic imaging of breast (principal); Z12.31 Encounter for screening mammogram for malignant neoplasm of breast
CPT/HCPCS: 77061; 77065; G0279

== ENCOUNTER 2024-02-13 09:45 | Day surgery (SDC) | payer BC, SELFPAY ==
--- NOTE | 2024-02-13 08:39 | W.ANESPRE ---
General Info Date of Service Date Performed: 02/13/24 Height: 5 ft 2 in Weight: 79.379 kg Body Mass Index (BMI): 32.0 Surgical Procedure: Operation Date: 02/13/24 10:35 Proposed Procedure Side Surgeon p Colonoscopy/Gastroscopy Jairo Sam MD Meds Allergies and Home Medications Allergies Allergy/AdvReac Type Severity Reaction Status Date / Time Sulfa (Sulfonamide Allergy Skin Rash Verified 02/13/24 10:16 Antibiotics) Home Medication Medication Instructions Recorded aspirin 81 mg tablet,delayed 81 mg PO DAILY #90 tabs 03/22/22 release nitroglycerin 0.4 mg sublingual 0.4 mg sublingual Q5-15M PRN chest 03/22/22 tablet pain #25 tabs olmesartan 20 mg tablet 20 mg PO DAILY #90 tabs 07/19/22 rosuvastatin 40 mg tablet 40 mg PO DAILY 06/26/23 escitalopram oxalate 5 mg tablet 5 mg PO DAILY #90 tabs 07/17/23 pantoprazole 40 mg tablet,delayed 40 mg PO DAILY #90 tabs 11/10/23 release (Protonix) bisacodyl 5 mg tablet,delayed 5 mg PO ONCE #4 tabs 01/18/24 release (Dulcolax (bisacodyl)) polyethylene glycol 3350 17 17 g PO ONCE #238 grams 01/18/24 gram/dose oral powder Current Visit Medications: Current Medications Generic Name Dose Route Start Last Admin Trade Name Freq PRN Reason Stop Dose Admin Ringer's Solution 1,000 mls @ 80 mls/hr 02/13/24 06:00 IV 02/13/24 23:59 INFUSION SUBHASH IV Miscellaneous Supplies 1 each 02/13/24 06:00 Iv Access IV 02/13/24 23:59 DIRECTED SUBHASH Sodium Chloride 0 ml 02/13/24 06:00 Normal Saline Flush 10 Ml Syr IV 02/13/24 23:59 PRN PRN Sodium Chloride 0 ml 02/13/24 06:00 Normal Saline 10 Ml Vial IJ 02/13/24 23:59 DIRECTED PRN Sterile Water 0 ml 02/13/24 06:00 Water,Injection,Sterile 10 Ml Vial IJ 02/13/24 23:59 DIRECTED PRN PFSH Active Problems Active Problems: Problem Status Onset Code Barretts esophagus K22.70 Snoring R06.83 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 Abnormal mammogram of left breast R92.8 Anxiety about health F41.8 CAD (coronary artery disease) 03/25/22 I25.10 Depression F32.A Squamous cell skin cancer C44.92 BCC (basal cell carcinoma of skin) C44.91 Hemochromatosis E83.119 Hyperlipidemia E78.5 GERD (gastroesophageal reflux disease) K21.9 Essential hypertension I10 Medical History Medical History Periodic limb movements of sleep (07/2023) Seen on sleep study, asymptomatic COVID-19 Osteoarthritis Bilateral hip replacement Surgical History Surgical History History of cardiac catheterization 2021-last saw cards 10/2023 Status post lumbar laminectomy History of left hip replacement (~10/2019) History of colonoscopy (~2012) History of right hip replacement (~07/2018) History of bilateral tubal ligation Tobacco Smoking/Tobacco Use Status: Never Second hand exposure: No Alcohol Alcohol Intake: current Alcohol intake frequency: a few times a month Alcohol type: wine Substance Use Substance use: Never Substance use type: does not use Prental History History 4 Para 3 Hx # Term Pregnancies 3 Multiple births Hx # Pregnancies Ectopic pregnancies AB induced Hx Number of Living Children 3 AB spontaneous Vital Signs and Lab Results Lab Results Blood Type / Crossmatch: No Data to Display Complete Blood Count: No Data to Display Complete Metabolic Panel: No Data to Display Liver Function Panel: No Data to Display Coagulation Panel: No Data to Display Cardiac Panel: No Data to Display Arterial Blood Gas: No Data to Display Venous Blood Gas: No Data to Display Pancreas Panel: No Data to Display Thyroid Panel: No Data to Display Infectious Disease: No Data to Display Blood Cultures: No Data to Display Toxicology Panel: No Data to Display Imaging and Studies Imaging and Studies Study information below may be from another EMR and interpreted by another provider. Please see original notes in EMR for more complete details. EKG Summary: 04/18: sinus, PVCs. Stress Test Summary: 04/18: ecg nondiagnostic due to inadequate HR. MPI no ischemia or infraction, EF 59%. Echocardiogram Summary: 04/18: LVEF 60%. no sig valve issues. Anesthesia Assessment and Plan Anesthesia History Personal History: No History of Anesthesia Complications Family History: No Family History of Anesthesia Complications Exercise Tolerance Exercise Tolerance: Metabolic Equivalents>4 Cardiac & Pulmonary Exam Cardiac Exam: Normal S1/S2 Heart Sounds Pulmonary Exam: Clear Bilateral Breath Sounds Implantable Cardiac Device Does patient have a Pacemaker or an ICD?: No Airway Exam Known Difficult Airway: No Mallampati Class: 3 Mouth Opening: Normal (> 3cm) Thyromental Distance: Greater than 3 cm Neck Range of Motion: Full ROM Neck Circumference: Normal Teeth Condition: Normal Dentition ASA Classification ASA Score: ASA 3 Emergency Case?: No NPO Status NPO Status: NPO Clears >2 hours, Solids >8 hours Anesthesia Plan Resuscitation Status: Full Code Anesthesia Technique: General Anesthesia Airway Planned: Natural Airway Monitors Used: Standard Monitors Preoperative Comments:: 63 yo female for EGD/colo. Sig PMHx: NSTEMI/CAD (2021, [facility] at [facility] [place] [place]. No issues since stent. Good exercise tolerance), HTN, YARITZA, GERD/Monaco's (pantoprazole), never smoker, occ EtOH. Previous Anes: - EGD in [facility] (200 total).
[2024-02-13 10:12] VITALS: BP 129/96; PULSE 69; RESP 18; TEMP 36.5; O2SAT 98
[2024-02-13] MEDS: Lactated Ringers 1,000 ML 80 ML IV (10:20)
[2024-02-13 10:28] VITALS: BMI 32.0
--- NOTE | 2024-02-13 11:03 | STOM_PTH ---
PATIENT: Monae Funk LOC: [facility] U#:[id number] AGE/SX: 63/F ROOM: RE02/13/[address]: Jairo Sam : 1960 BED: DIS: 02/13/2024 SPEC #: [id number] RECD: 02/13/24 12:41 STATUS: ROSA RE #: [id number] RA: 02/13/24 11:[address]: Jairo Sam DEPT: Surgical Specimen RECD BY: Gabby Valerio ENTERED: 02/13/24 12:44 SP TYPE: STOMACH OTHR DR: Radha Estrella Tissues: 1 - STOMACH BIOPSY 2 - STOMACH BIOPSY 3 - ESOPHAGUS BIOPSY 4 - BIOPSY BOWEL Procedures: GROSS AND MICRO LEVEL 4 Comments: [id number]
[2024-02-13 11:26] VITALS: BP 95/62; PULSE 74; RESP 20; TEMP 36.5; O2SAT 96
--- NOTE | 2024-02-13 11:34 | W.PM.ENDDOP ---
Date of service: 02/13/24 Time of Service: 11:34 Endoscopy Report PROCEDURE DESCRIPTION: PROCEDURES PERFORMED: 1. EGD with biopsies 2. Cold forceps polypectomy PREOPERATIVE DIAGNOSIS: Monaco's esophagus, hiatal hernia POSTOPERATIVE DIAGNOSIS: Normal foregut, fundic polyps SURGEON: Porter Sam MD INDICATION FOR PROCEDURE: 63-year-old woman reportedly has Monaco's esophagus and also has a hiatal hernia according to the chart. She is due for surveillance. She has no symptoms as long as she takes her antacid medications. FINDINGS: D2/D3 = normal D1/bulb = normal - no ulcers or inflammation Pylorus = normal Antrum = normal appearance, no ulcers, cold forceps biopsies were taken to rule out H. pylori routinely Body = normal appearance, biopsies taken with cold forceps technique routinely Fundus = normal, a couple of small, benign?appearing polyps were seen and 1 was removed to confirm benign histology. Cardia = normal Hiatus = no obvious hiatal hernia Distal esophagus = no inflammation, no esophagitis, no Monaco's, no stricture. I took biopsies to assess histologically. Mid esophagus = normal Proximal esophagus/hypopharynx/vocal cords = normal SURVEILLANCE-INTERVAL/FOLLOW-UP: I do not think further EGDs are necessary. Discuss with your PCP. Specimens: Yes EBL: Minimal COMPLICATIONS: None Procedure in detail: The patient gave written consent and was in agreement with the indications, the potential risks as well as the benefits of the procedure. The patient was taken to the endoscopy suite and laid on their left side. Anesthesia was given which was tolerated well. We performed a timeout and we are in agreement I started the procedure. A well-lubricated endoscope was gently and carefully advanced down the esophagus, into the stomach the scope was and through the pylorus into the duodenum. The scope was then slowly withdrawn with the above-noted findings/interventions. The patient tolerated the procedure well and was then turned for colonoscopy (see separate procedure note).
--- NOTE | 2024-02-13 11:34 | W.COLOREPORT ---
Date of service: 02/13/24 Time of Service: 11:34 Colonoscopy Report Procedure Description: Procedures performed: 1. Colonoscopy with cold forceps biopsies Preoperative diagnosis: Surveillance colonoscopy Postoperative diagnosis: Grossly normal colonoscopy Surgeon: Porter Sam MD Indication for procedure: The patient is a 63-year-old woman due for surveillance colonoscopy. She has no symptoms. There is no family history of colon cancer. No concerning findings on her prior colonoscopy 10+ years ago. Findings: No polyps were found. No obvious diverticular disease. In the proximal sigmoid colon at about 40 cm there was a small sub-centimeter ulcer, isolated. Unclear significance. No surrounding erythema. I biopsied it. Maybe it is just scope trauma but it looks like an ulcer. No significant hemorrhoid disease. Surveillance interval/follow-up: Pending pathology results of the biopsy. Probably okay to repeat in 10 years. Specimens: yes Estimated blood loss: Minimal Complications: None Quality of prep: Excellent Procedure in detail: The patient gave written consent and was in agreement with the indications, the potential risks as well as the benefits of the procedure. she was turned from upper endoscopy (see separate procedure note) and anesthesia was continued and I started the colonoscopy portion of the exam. Digital rectal and visual examination was performed and grossly within normal limits. A well-lubricated flexible colonoscope was then introduced and passed without any notable difficulty all the way to the cecum identified by the ileocecal valve and the appendiceal orifice. The scope was then slowly withdrawn with the above-noted findings. The patient tolerated the procedure well and was taken to the PACU in hemodynamically stable condition.
--- NOTE | 2024-02-13 11:41 | W.PM.DSUDISC ---
Date of service: 02/13/24 Time of Service: 12:15 Discharge Plan Disposition Patient Disposition: Home Condition: Good Discharge Details Attending Provider: Jairo Sam Primary Care Provider: Radha Estrella Home Meds and New Rx's Prescriptions: No Action bisacodyl [Dulcolax (bisacodyl)] 5 mg tablet,delayed release (DR/EC) 5 mg PO ONCE Qty: 4 0RF Rx Instructions: Take per colonoscopy instructions provided by ordering providers office polyethylene glycol 3350 17 gram/dose powder 17 g PO ONCE Qty: 238 0RF Rx Instructions: Take per colonoscopy instructions provided by ordering providers office rosuvastatin 40 mg tablet 40 mg PO DAILY nitroglycerin 0.4 mg tablet, sublingual 0.4 mg sublingual Q5-15M PRN (Reason: chest pain) Qty: 25 0RF Rx Instructions: take as needed q 5 mins for c/p until gone if take 3 pills and pain persists, call aspirin 81 mg tablet,delayed release (DR/EC) 81 mg PO DAILY Qty: 90 3RF olmesartan 20 mg tablet 20 mg PO DAILY Qty: 90 3RF escitalopram oxalate 5 mg tablet 5 mg PO DAILY Qty: 90 3RF pantoprazole [Protonix] 40 mg tablet,delayed release (DR/EC) 40 mg PO DAILY Qty: 90 1RF Discharge Instructions Additional Instructions: FINDINGS: On upper endoscopy everything looks pretty good. I did not appreciate any Monaco's esophagus anywhere. You probably do not need to have another EGD. On colonoscopy, there were no polyps or concerning lesions found. You should repeat a colonoscopy in 10 years. Activity:: Activity as Tolerated Diet:: As Tolerated Discharge Orders Discharge Orders: Discharge Order (Routine); Ordered 02/13/24 Ordered By: Jairo Sam
[2024-02-13 12:00] VITALS: BP 119/72; PULSE 56; RESP 16; TEMP 36.4; O2SAT 95
--- NOTE | 2024-02-13 12:01 | W.ANESPOSTOP ---
Postoperative Evaluation Date, Time and Location Date Performed: 02/13/24 Time Performed: 12:02 Patient Location: Day Surgery Unit Vital Signs Most Recent Imported Vital Signs: Most Recent Vital Signs Temp Pulse Resp BP Pulse Ox 36.5 C 74 20 95/62 L 96 02/13/24 11:26 02/13/24 11:26 02/13/24 11:26 02/13/24 11:26 02/13/24 11:26 Pain Score Most Recent Pain Score: Most Recent Pain Score Pain Level 0 02/13/24 11:26 Assessment Mental Status: Awake (Alert & Oriented to Patient Baseline) Airway and Respiratory Function: Patent airway with normal (patient baseline) respiratory exam Cardiovascular Function: Hemodynamically Stable Hydration Status: Adequately Hydrated Nausea & Vomiting: No Nausea or Vomiting Pain: Pt. Denies Any Pain Peripheral Nerve Block: Patient did not receive a nerve block
== END 2024-02-13 12:40 | disposition home or self-care (01) ==
PROVIDERS: PCP Family Medicine; Visit Provider Student in an Organized Health Care Education/Training Program
PROC: (CPT 45380; principal; 2024-02-13 10:30)
DX: Z12.11 Encounter for screening for malignant neoplasm of colon (principal); K21.9 Gastro-esophageal reflux disease without esophagitis; K29.70 Gastritis, unspecified, without bleeding; K31.7 Polyp of stomach and duodenum; K22.89 Other specified disease of esophagus
CPT/HCPCS: 45380; 43239; 00123; 88305; J2704

== ENCOUNTER → 2024-03-18 01:19 | Outpatient (CLI) | payer BC, SELFPAY ==
--- NOTE | 2024-03-18 | DI.DEXA_ITS ---
Exam(s) XR DEXA BONE DENSITY W/WO ANDRES EXAM: XR DEXA BONE DENSITY W/WO ANDRES CLINICAL HISTORY: f/u osteopenia after menopause, asymptomatic menopausal state, Z78.0,M85.80 TECHNIQUE: The patient has had bilateral total hip replacements. COMPARISON: No exams were available for comparison FINDINGS: Lateral Spine Image: Unremarkable. No compression deformities identified. Right forearm : Total T-Score: -2.4 Total Z-Score: -1.0 T- and Z-scores: Findings are consistent with osteopenia. Osteoporosis is seen in the mid forearm wi th a T-score of -2.6. Lumbar Spine: Total T-Score: -1.3 Total Z-Score: 0.2 T- and Z-scores: Findings are consistent with osteopenia. IMPRESSION: Osteoporosis is seen in the mid right forearm.
== END ==
PROVIDERS: PCP Family Medicine; Visit Provider Family Medicine
DX: M85.80 Other specified disorders of bone density and structure, unspecified site (principal); Z78.0 Asymptomatic menopausal state; M80.831A Other osteoporosis with current pathological fracture, right forearm, initial encounter for fracture
CPT/HCPCS: 77080

== ENCOUNTER 2024-03-20 15:12 | Outpatient (CLI) | payer BC, SELFPAY ==
[2024-03-20 15:33] LABS: ALT 33 U/L (14-59); AST 23 U/L (15-37); Albumin 4.2 g/dL (3.4-5.0); Alkaline Phosphatase 95 U/L (46-116); Anion Gap 8.3 mmol/L (3-11); BUN 20 mg/dL (7-18); CO2 28.7 mmol/L (21.0-32.0); CREATININE 1.1 mg/dL (0.55-1.02); Calcium 9.8 mg/dL (8.5-10.1); Chloride 104 mmol/L (98-107); Estimated GFR 57.17 (mL/min/1.73m2); Glucose 77 mg/dL (74-106); Potassium 3.9 mmol/L (3.5-5.1); Sodium 141 mmol/L (136-145); TSH (W/Ref FT4) 1.02 uIU/mL (0.36-3.74); Total Protein 7.8 g/dL (6.4-8.2); Vitamin D 25 Total 41.2 ng/mL (30-100)
[2024-03-21 09:11] LABS: Calcium (Random Urine) 3.7 mg/dL (See Note)
[2024-03-21 10:46] LABS: Parathyroid Hormone,Intact 35 pg/mL (19-88)
== END 2024-03-20 15:13 | disposition home or self-care (01) ==
LOC: LBO 15:13
PROVIDERS: PCP Family Medicine; Visit Provider Family Medicine
DX: M81.0 Age-related osteoporosis without current pathological fracture (principal); N18.9 Chronic kidney disease, unspecified; I10 Essential (primary) hypertension
CPT/HCPCS: 36415; 80053; 82306; 82340; 83970; 84443

== ENCOUNTER 2024-04-16 01:49 | Outpatient (RCR) | payer BC, SELFPAY ==
[2024-04-16] MEDS: Normal Saline Flush 10 ML SYR IVP (08:07)
[2024-04-16] MEDS: ZOLEDRONIC ACID/MANNITOL/WATER 5 MG/100 ML BTL 300 MG IVPB (08:07)
== END 2024-04-27 23:59 | disposition home or self-care (01) ==
LOC: INF 01:49
PROVIDERS: PCP Family Medicine; Visit Provider Family Medicine
DX: M81.0 Age-related osteoporosis without current pathological fracture (principal)
CPT/HCPCS: 96365; J3489

== ENCOUNTER 2024-07-01 01:48 | Outpatient (CLI) | payer BC, SELFPAY ==
--- NOTE | 2024-07-01 06:45 | DI.MAMMO_ITS ---
Exam(s) MAMMO SCREENING EXAM: MAMMO SCREENING CLINICAL HISTORY: screening,z12.39 TECHNIQUE: Bilateral full field digital CC and MLO mammographic images were obtained with 3D tomosyn thesis and utilizing computer aided detection (CAD). COMPARISON: Available for comparison. FINDINGS: Masses/Architectural Distortion: The area of nodularity in the outer left breast appears stable. No new suspicious areas of nodularity are seen. No evidence of architectural distortion. Microcalcifications: No suspicious pleomorphic-type are seen. Skin Thickening/Nipple Retraction: None. IMPRESSION: 1. No significant interval change with no specific features of malignancy noted. 2. Unless there is more urgent need, screening mammography is recommended, as per [employer] guidelines. BI-RADS Category 2 - Benign Findings Breast Density - Category B - Scattered areas of fibroglandular density Breast density category C or D implies that the patient has dense breast tissue. Dense breast tissue is very common and is not abnormal but dense breast tissue can make it harder to find cancer on a ma mmogram. Also, dense breast tissue may increase their breast cancer risk. This information about the result of the mammogram report was provided to the patient to raise their awareness. Use this report when you speak with the patient about their risks for breast cancer, which includes their family hist ory. At that time, you may recommend for more screening tests (Ultrasound or MRI) as they might be us eful based on their risk. A negative radiographic report should not delay biopsy if a dominant or clinically suspicious mass is present. Up to ten percent of cancers are not identified on mammography. A negative report may reinforce clinical impression. Adenosis and dense breasts may obscure an underlying neoplasm. False positive reports average 6 to 10%. Patient will receive a letter notifying them of these results.
== END 2024-07-01 02:08 ==
LOC: DI 01:48
PROVIDERS: PCP Family Medicine; Visit Provider Obstetrics & Gynecology
DX: Z12.31 Encounter for screening mammogram for malignant neoplasm of breast (principal); R92.8 Other abnormal and inconclusive findings on diagnostic imaging of breast
CPT/HCPCS: 77063; 77067

== ENCOUNTER 2024-07-29 02:34 | Outpatient (CLI) | payer BC, SELFPAY ==
--- NOTE | 2024-07-29 13:00 | DI.RAD_ITS ---
Exam(s) XR FOOT LT COMPLETE EXAM: XR FOOT LT COMPLETE CLINICAL HISTORY: Left heel pain,LT FOOT PAIN,M79.672. TECHNIQUE: 2D digital imaging was performed. Three views. COMPARISON: No exams were available for comparison FINDINGS: BONES: No acute fracture is present. Old healed fracture deformity of the 5th metatarsal. No bony d estructive lesion is seen. Tiny plantar calcaneal spur. JOINTS: No dislocation present. Mild degenerative changes at the 1st MTP joint. No hallux valgus. SOFT TISSUE: Normal. IMPRESSION: Mild degenerative changes and small heel spur. DATA REPOSITORY: RADIATION DOSE DELIVERED:
== END 2024-07-29 02:54 ==
LOC: DI 02:34
PROVIDERS: PCP Family Medicine; Visit Provider Podiatrist
DX: M79.672 Pain in left foot (principal)
CPT/HCPCS: 73630

== ENCOUNTER 2024-10-23 03:20 | Outpatient (CLI) | payer BC, SELFPAY ==
[2024-10-23 11:30] LABS: Abs Immature Grans 0.02 10^3/uL (0.0-0.06); Absolute Basophil Count 0.05 10^3/uL (0.0-0.2); Absolute Eosinophil Count 0.15 10^3/uL (0.0-0.7); Absolute Lymphocyte Count 2.67 10^3/uL (1.2-3.4); Absolute Monocyte Count 0.73 10^3/uL (0.1-0.8); Absolute Neutrophil Count 3.65 10^3/uL (1.2-6.7); Basophils % 0.7 %; Eosinophils % 2.1 %; HCT 43.4 % (36.0-46.0); HGB 15.1 g/dL (11.2-15.7); Immature Grans % 0.3 %; Lymphocytes % 36.7 %; MCH 30.9 pg (27.0-33.0); MCHC 34.8 % (32.0-36.0); MCV 89 fL (80-95); MPV 9.6 fL (8.0-11.0); Neutrophils % 50.2 %; Platelet Count 306 10^3/uL (130-400); RBC 4.89 10^6/uL (3.93-5.22); RDW 12.3 % (11.7-14.6); RDW-SD 39.9 fL; WBC 7.27 10^3/uL (4.4-10.8)
[2024-10-23 11:55] LABS: ALT 33 U/L (14-59); AST 24 U/L (15-37); Albumin 4.3 g/dL (3.4-5.0); Alkaline Phosphatase 78 U/L (46-116); Anion Gap 7.3 mmol/L (3-11); BUN 21 mg/dL (7-18); Bilirubin, Total 0.47 mg/dL (0.2-1.0); CO2 29.7 mmol/L (21.0-32.0); CREATININE 1.1 mg/dL (0.55-1.02); Calcium 9.9 mg/dL (8.5-10.1); Chloride 105 mmol/L (98-107); Estimated GFR 56.81 (mL/min/1.73m2); Ferritin 82 ng/mL (8-252); Glucose 87 mg/dL (74-106); Potassium 4.2 mmol/L (3.5-5.1); Sodium 142 mmol/L (136-145); Total Protein 7.4 g/dL (6.4-8.2)
== END 2024-10-23 03:21 | disposition home or self-care (01) ==
PROVIDERS: PCP Family Medicine; Visit Provider Nurse Practitioner Adult Health
DX: E83.110 Hereditary hemochromatosis (principal)
CPT/HCPCS: 36415; 80053; 82728; 85025

== ENCOUNTER 2024-12-18 02:40 | Outpatient (CLI) | payer BC, SELFPAY ==
--- NOTE | 2024-12-18 | DI.MRI_ITS ---
Exam(s) MR LOWER JOINT LT WO EXAM: MR LOWER JOINT LT WO CLINICAL HISTORY: PLANTAR FASCIITIS LEFT FOOT M72.2 CHRONIC LT HEEL PAIN OVERLYING PLANTAR TECHNIQUE: Multiplanar multisequence MRI was performed without intravenous contrast on 1.5 max uni t.. Field of view includes the hindfoot and midfoot to the mid aspect of the metatarsals. COMPARISON: CR XR FOOT LT COMPLETE from 07/29/2024 FINDINGS: SKIN: No evidence of ulcer nor subcutaneous tract. BONES/JOINTS: No evidence of acute fracture nor obvious bone contusion in the proximal foot.. There i s mild increased intraosseous signal/bone edema at the mid aspect of the cuboid bone. No fracture li ne at this level. There is deformity in the mid-distal 5th metatarsal which has the appearance of a healed fracture site. There is some degenerative change in the ankle-tibiotalar joint with cartilage loss in the main weigh t-bearing and lateral aspect of this articulation there is also an overlying degenerative subarticula r cyst in the lateral half of the tibial plafond, posterior of center. There are no degenerative cys ts nor osteochondral defects in the talar dome. There is no evidence of osseous tarsal coalition. LISFRANC: Main tendon appears intact. No diastasis of this articulation. LIGAMENTS: The anterior and posterior tibiofibular and calcaneofibular ligaments are intact. Anterior talofibular ligament and posterior talofibular ligament appear intact. Calcaneofibular ligament appe ars intact.. On the medial aspect of the ankle the deltoid ligament appears intact. SINUS TARSI: Although there is normal fat signal in this region, there is a fluid collection coming f rom this space and extending anteriorly subjacent to the extensor tendons, above the mid-lateral aspe ct of the talonavicular joint. Consistent with a sinus tarsi ganglion cyst. MUSCULOTENDINOUS STRUCTURES: Muscles: No abnormal intramuscular signal to suggest myositis nor selective atrophy in the included m uscles of the hindfoot and midfoot. Achilles tendon: Unremarkable. No evidence of tear nor tendinitis/tendinosis. Plantar fascia: There is significant signal abnormality in the medial band of the plantar fascia at a nd proximal to its attachment to the undersurface of the calcaneus. Consistent with significant plan tar fasciitis . There is a small inferior calcaneal spur and intraosseous edema in the inferior calc aneus at this level. There does not appear to be a full-thickness tear of the plantar fascia nor sig nificant nodularity of this structure. Anterior Extensor tendons: Intact although there is undermining fluid as described above coming from the sinus tarsi. Medial Tendons: Posterior Tibialis: No tear. Very mild tenosynovitis. Flexor Digitorum longus: Unremarkable. No tear or tenosynovitis evident. Flexor Hallicus longus: There is significant fluid at and distal to the musculotendinous junction con sistent with tenosynovitis which extends to slightly beyond the sustentacular and talus. There does not appear to be a tear of this FHL tendon. Lateral Tendons: Peroneus longus: There is tenosynovitis of this tendon on the undersurface of the foot distal to the peroneus groove of the cuboid there is, however, no evidence of tear of this tendon on the undersurfa ce of the foot. No tear nor tenosynovitis evident. Peroneus brevis:There is tenosynovitis of this tendon on the undersurface of the foot. Other: IMPRESSION: 1. Significant signal abnormality at the insertional aspect of the plantar fascia on the undersurface of the calcaneus and there is also mild underlying marrow edema in the inferior calcaneus insertion site. Also within the small plantar calcaneal spur/enthesophyte at this level. There is no evidence o f high-grade tear of the plantar fascia nor abnormal nodularity of the plantar fascia. Achilles tendo n appears unremarkable. 2. There is prominent tenosynovitis of the flexor hallucis longus at its musculotendinous junction be hind the ankle and extending to be on the sustentacular and talus. There is, however, no tear of this tendon. There is very mild tenosynovitis of the tibialis posterior tendon. 3. There is tenosynovitis of the peroneus longus tendon on the undersurface of the foot at and distal to the peroneal groove of the cuboid and there is mild intraosseous signal abnormality in the latera l aspect of the cuboid at this level. There does not appear to be an actual tear of this tendon. Also no evidence of tear of the adjacent peroneus brevis tendon. 4. There is a sinus tarsi ganglion cyst which extends out from the sinus tarsi to form a thin fluid c ollection subjacent to the extensor tendons on the dorsal aspect of the proximal foot and dorsal to t he talonavicular articulation. This measures 2.5 cm proximal to distal, 1.8 cm wide, and 0.25 cm thic k. DATA REPOSITORY:
--- NOTE | 2024-12-18 18:54 | DI.VRAD_ITS ---
PROCEDURE INFORMATION: Exam: MR Left Lower Extremity Joint Without Contrast; Ankle Exam date and time: 12/18/2024 2:06 PM Age: 64 years old Clinical indication: Weakness and other: Plantar fascitis TECHNIQUE: Imaging protocol: Magnetic resonance imaging of the left lower extremity without contrast. Exam focused on the ankle. COMPARISON: CR XR FOOT LT COMPLETE 07/29/2024 12:59 PM (report not provided) FINDINGS: Bones/joints: The joint spaces are normally aligned. Joint fluid appears to be within physiologic limits. The talar dome is maintained and contour. There is very mild chondromalacia about the tibiotalar joint, and mild subcortical cystic change in the tibial plafond posteromedially is probably degenerative. Mild osteophyte formation is present about some intertarsal joints, and there are minor scattered areas of subcortical marrow edema and cystic change in the tarsal bones which appear degenerative. Mild edema is also present in the plantar aspect of the calcaneus, where there is a small enthesophyte. LIGAMENTS: Distal tibiofibular syndesmosis: Unremarkable. No tear. Anterior talofibular ligament: Unremarkable. No tear. Posterior talofibular ligament: Unremarkable. No tear. Calcaneofibular ligament: Unremarkable. No tear. Deltoid ligament complex: Unremarkable. No tear. TENDONS: Flexor tendons of foot: Focal fluid in the flexor hallucis longus tendon sheath posterior to the talus suggests tenosynovitis in the absence of a significant tibiotalar joint effusion. The tendon itself is intact, as is the flexor digitorum longus tendon. Tibialis posterior tendon: Small fluid in the tibialis posterior tendon sheath suggests mild tenosynovitis. The tendon itself is intact. Peroneal tendons: Small fluid in the peroneal tendon sheath suggests mild tenosynovitis. The peroneus brevis and longus tendons themselves are intact. Extensor tendons of foot: Unremarkable as visualized. Tibialis anterior tendon: Unremarkable as visualized. Achilles tendon: Unremarkable as visualized. Tarsal canal (Sinus tarsi): See Soft tissues section below. Tarsal tunnel: Unremarkable. Soft tissues: Mild edema is present in the soft tissues superficial and deep to the insertion of the plantar fascia. There is a U-shaped focus of fluid in the deep soft tissues dorsal to the talonavicular joint, potentially ganglion, also apparently communicating with the sinus tarsi. Plantar fascia: There is mild proximal insertional plantar fasciitis. IMPRESSION: 1. Mild proximal insertional plantar fasciitis with mild surrounding soft tissue edema and mild underlying marrow edema in the calcaneus at the insertion, with a small plantar calcaneal enthesophyte. 2. Additional degenerative changes as described. 3. Focal, potentially stenosing flexor hallucis longus tenosynovitis posterior to the talus with mild tibialis posterior and peroneal tenosynovitis. 4. U-shaped focus of fluid in the deep soft tissues dorsal to the talonavicular joint, potentially a ganglion, also apparently communicating with the sinus tarsi. Dictated and Authenticated by: Christian Martinez MD. Orderin Alphonso Villanueva MD
== END 2024-12-18 03:00 ==
LOC: DI 02:40
PROVIDERS: PCP Family Medicine; Visit Provider Podiatrist
DX: M72.2 Plantar fascial fibromatosis (principal)
CPT/HCPCS: 73721

== ENCOUNTER 2025-03-07 09:26 | Outpatient (CLI) | payer BC, SELFPAY ==
--- NOTE | 2025-03-07 09:15 | RT.EKG_ITS ---
APPROVED REPORT Exam: Resting ECG Reason for Exam: dizziness Patient Location: O HR:75 bpm ECG Measurements Heart Rate 75 AXIS NV 158 P 58 QRSd 84 QRS 37 QT 376 T 31 QTc 420 Conclusion Sinus rhythm...normal P axis, V-rate 50- 99 Normal Electrocardiogram
== END 2025-03-07 09:27 | disposition home or self-care (01) ==
LOC: DI.CM 09:27
PROVIDERS: PCP Family Medicine; Visit Provider Physician Assistant
DX: R42 Dizziness and giddiness (principal)
CPT/HCPCS: 93010

== ENCOUNTER 2025-03-07 10:07 | Emergency (ER) | payer BC, SELFPAY ==
[2025-03-07] VITALS (72 sets, daily range): BP systolic 109–155; BP diastolic 70–94; PULSE 47–93; RESP 10–25; TEMP 36.6; O2SAT 93–100
--- NOTE | 2025-03-07 10:00 | RT.EKG_ITS ---
APPROVED REPORT Exam: Resting ECG Reason for Exam: dizziness Patient Location: E HR:69 bpm ECG Measurements Heart Rate 69 AXIS IL 163 P 51 QRSd 82 QRS 19 QT 375 T 21 QTc 403 Conclusion Sinus rhythm...normal P axis, V-rate 60- 99 No Occlusion NV
[2025-03-07 10:36] LABS: Abs Immature Grans 0.02 10^3/uL (0.0-0.06); HCT 43.6 % (36.0-46.0); HGB 14.9 g/dL (11.2-15.7); Immature Grans % 0.3 %; MCH 30.2 pg (27.0-33.0); MCHC 34.2 % (32.0-36.0); MCV 88 fL (80-95); MPV 9.7 fL (8.0-11.0); Platelet Count 258 10^3/uL (130-400); RBC 4.94 10^6/uL (3.93-5.22); RDW 12.0 % (11.7-14.6); RDW-SD 38.5 fL; WBC 7.32 10^3/uL (4.4-10.8)
--- NOTE | 2025-03-07 10:41 | W.ED.GENAD ---
Discharge Plan Disposition Patient Disposition: Home Discharge Details Clinical Impression: Dizziness Primary Care Provider: Radha Estrella ED Provider: Noy Antonio Home Meds and New Rx's Prescriptions: No Action olmesartan 40 mg tablet 40 mg PO DAILY Qty: 90 3RF ketoconazole 2 % shampoo 1 applic topical Q7D azelaic acid 15 % gel 1 applic topical BID PRN pantoprazole [Protonix] 40 mg tablet,delayed release (DR/EC) 40 mg PO DAILY Qty: 90 1RF rosuvastatin 40 mg tablet 40 mg PO DAILY Qty: 90 3RF nitroglycerin 0.4 mg tablet, sublingual 0.4 mg sublingual Q5-15M PRN (Reason: chest pain) Qty: 25 0RF Rx Instructions: take as needed q 5 mins for c/p until gone if take 3 pills and pain persists, call aspirin 81 mg tablet,delayed release (DR/EC) 81 mg PO DAILY Qty: 90 3RF escitalopram oxalate 5 mg tablet 5 mg PO DAILY Qty: 90 3RF Discharge Instructions Additional Instructions: Please call your primary care provider's office first thing in the morning to schedule follow-up appointment. Further outpatient evaluation may be indicated, especially if symptoms persist Your workup today was very reassuring. Your symptoms improved with fluids, so it is likely that this is due to dehydration. I recommend that you stay well-hydrated, drinking plenty of fluid throughout the day and eating regular meals. Return to emergency care if you develop new severe headaches, severe episodes of dizziness/passing out, chest pain, difficulty breathing, or if you are very worried you need to be rechecked again immediate Referrals: Radha Estrella MD [Primary Care Provider, Medicine] HPI General Date/Time Provider Initiated Documentation: 03/07/25 10:10. [facility] Narrative: Monae is a 64-year-old female who presents to the emergency department today for evaluation of palpitations and dizziness since yesterday. Symptoms have been waxing and waning since onset Dizziness began on 03/06/2025, initially attributed to dehydration. Despite increased water intake, dizziness persisted during a walk on 03/07/2025, accompanied by nausea. Referred from [facility]. Dizziness described as lightheadedness, fluctuating in intensity, with a need to sit down or cover her head; no increase in dizziness with position changes. Palpitations described as pounding or racing heart, improved over time. Unsure if related to dizziness. Nausea improved. Denies Fever/chills, headaches, recent illnesses, changes in vision, chest pain, shortness of breath, numbness, vomiting, abdominal pain, change in bowel or bladder function, dysuria, or dietary changes. PMH significant for GERD, HTN, HLD, heart disease with stent placement. On aspirin. No history of congestive heart failure. PAST SURGICAL HISTORY: Stent placement Related Data Home Medications ?Medication ?Instructions ?Recorded ?Confirmed aspirin 81 mg tablet,delayed 81 mg PO DAILY #90 tabs 03/22/22 03/07/25 release azelaic acid 15 % topical gel 1 applic topical BID PRN 03/20/24 03/07/25 ketoconazole 2 % shampoo 1 applic topical Q7D 03/20/24 03/07/25 nitroglycerin 0.4 mg sublingual 0.4 mg sublingual Q5-15M PRN chest 03/20/24 03/07/25 tablet pain #25 tabs pantoprazole 40 mg tablet,delayed 40 mg PO DAILY #90 tabs 03/20/24 03/07/25 release (Protonix) rosuvastatin 40 mg tablet 40 mg PO DAILY #90 tabs 03/20/24 03/07/25 olmesartan 40 mg tablet 40 mg PO DAILY #90 tabs 05/28/24 03/07/25 escitalopram oxalate 5 mg tablet 5 mg PO DAILY #90 tabs 07/29/24 03/07/25 Previous Rx's ?Medication ?Instructions ?Recorded aspirin 81 mg tablet,delayed 81 mg PO DAILY #90 tabs 03/22/22 release nitroglycerin 0.4 mg sublingual 0.4 mg sublingual Q5-15M PRN chest 03/20/24 tablet pain #25 tabs pantoprazole 40 mg tablet,delayed 40 mg PO DAILY #90 tabs 03/20/24 release (Protonix) rosuvastatin 40 mg tablet 40 mg PO DAILY #90 tabs 03/20/24 olmesartan 40 mg tablet 40 mg PO DAILY #90 tabs 05/28/24 escitalopram oxalate 5 mg tablet 5 mg PO DAILY #90 tabs 07/29/24 Allergies Allergy/AdvReac Type Severity Reaction Status Date / Time Sulfa (Sulfonamide Allergy Skin Rash Verified 03/07/25 09:26 Antibiotics) General Stated Complaint: Palpitatns LIMA: 3 Exam Narrative Exam Narrative: General Appearance: Normal. Patient is alert and oriented, no acute Vital signs: Within normal limits. HEENT: Oropharynx clear. Moist mucous membranes. Respiratory: Easy work of breathing, lung sounds clear bilaterally Cardiovascular: Regular rate and rhythm. GI: Abdomen is soft, nondistended, nontender to palpation Back, Musculoskeletal: No ankle swelling. Neurological: CN II-XII intact. PERRL, EOMs intact. Motor strength 5/5 bilaterally, sensation grossly intact. Normal Romberg, LISA's, finger to finger, finger-nose, tandem gait, heel marshall. Skin: Warm and dry, no rash. Psychiatric: Normal. Course Vital Signs Vital signs: Vital Signs Temperature 36.6 C 03/07/25 10:10 Pulse 71 03/07/25 10:10 Respiratory Rate 20 03/07/25 10:10 Blood Pressure 146/84 H 03/07/25 10:10 Pulse Oximetry 100 03/07/25 10:10 Temperature 36.6 C 03/07/25 10:10 Temperature Source Oral 03/07/25 10:10 Pulse 70 03/07/25 10:31 Pulse 84 03/07/25 10:31 Respiratory Rate 18 03/07/25 10:30 Blood Pressure 109/88 03/07/25 10:31 Blood Pressure Mean 96 03/07/25 10:31 Blood Pressure Position Supine 03/07/25 10:10 Pulse Oximetry 97 03/07/25 10:16 Oxygen Delivery Method Room Air 03/07/25 10:10 Oxygen Flow Rate 0 03/07/25 10:10 Pain Level 0 03/07/25 10:10 Lab/Test Results Lab/Test Results: Laboratory Tests Range/Units 03/07/25 10:24 WBC (4.4-10.8) 10^3/uL 7.32 RBC (3.93-5.22) 10^6/uL 4.94 Hgb (11.2-15.7) g/dL 14.9 Hct (36.0-46.0) % 43.6 MCV (80-95) fL 88 MCH (27.0-33.0) pg 30.2 MCHC (32.0-36.0) % 34.2 RDW (11.7-14.6) % 12.0 Plt Count (130-400) 10^3/uL 258 MPV (8.0-11.0) fL 9.7 Immature Gran % % 0.3 Neutrophils % % 57.9 Lymphocytes % % 31.3 Monocytes % % 8.6 Eosinophils % % 1.2 Basophils % % 0.7 Nucleated RBC % (0.0-0.3) % 0.0 Absolute Neutrophils (1.2-6.7) 10^3/uL 4.24 Absolute Lymphocytes (1.2-3.4) 10^3/uL 2.29 Absolute Monocytes (0.1-0.8) 10^3/uL 0.63 Absolute Eosinophils (0.0-0.7) 10^3/uL 0.09 Absolute Basophils (0.0-0.2) 10^3/uL 0.05 Medical Decision Making Initial Assessment: 64-year-old female with dizziness and palpitations. Normal neurological exam. Differential Diagnosis includes but is not limited to: ACS/cardiac arrhythmia, dehydration, electrolyte imbalance, hypoglycemia, thyroid dysfunction, occult infection such as pneumonia or UTI ED Course: - Normal neurological exam. - Cardiac workup initiated. - Ordered chest x-ray. I independently interpreted the following tests: EKG shows normal sinus rhythm rate 69, normal intervals, no changes consistent with acute ischemia. Occasional PVCs noted on monitor. CBC, CMP, TSH, UA, serial troponins all reassuring. Chest x-ray unremarkable, no acute findings noted Final Assessment: Normal neurological exam. Reassuring cardiac workup and chest x-ray Overall workup today reassuring. Monae reports feeling significantly better after receiving 1 L fluids, says that the fuzzy headedness has resolved. Symptoms today likely due to dehydration, however recommend close follow-up with PCP for further evaluation/management, especially if symptoms persist. She has been able to tolerate some p.o., feels good to go home. Clinical Impression: - Dizziness, likely related to dehydration. Workup today Disposition: - Discharge; reviewed discharge instruction with patient, including importance of good hydration, follow-up with PCP for further evaluation/management, and red flags indicating need for return to emergency care. She voices agreement with plan of care MDM Components Evaluation: - Number of Differential Diagnoses or Management Options: Cardiac issues, Dehydration, Electrolyte imbalance, Neurological causes - Amount and Complexity of Data Reviewed: Cardiac workup, chest x-ray - Risk of Complication and Morbidity or Mortality: Moderate due to history of heart disease and stent placement Patient consented to the use of [facility] Imaging Data Radiologic Study: Radiologist's impression: Exam(s) XR CHEST 2V PA LATERAL EXAM: XR CHEST 2V PA LATERAL CLINICAL HISTORY: palpitations, dizziness. TECHNIQUE: 2D digital imaging was performed. COMPARISON: CR XR PORTABLE CHEST AP from 03/28/2022 FINDINGS: 2 views: Heart size is normal. The mediastinum is not widened. Lungs are clear. No infiltrates nor pleural effusions. IMPRESSION: No acute pulmonary findings. 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 Consult with [facility] Endocrine - cont ca/vit D, recheck 2 yrs. Intolerance to fosamax and reclast. Snoring (Acute) No obstruction on sleep study July 2023. Abnormal mammogram of left breast (Acute) Imaging 05/2023. 6-month follow-up left breast mammogram and ultrasound ordered. Anxiety about health (Acute) CAD (coronary artery disease) (Chronic 03/25/22) 1 JUAN to 2nd diagnonal branch LAD Depression (Chronic) Squamous cell skin cancer (Chronic) face dx and tx in BCC (basal cell carcinoma of skin) (Chronic) Face-diagnosed /tx followed by dermatology in [place] Hemochromatosis (Chronic) Diagnosed in [place], followed by hematology there per patient had abnormal genetic testing as expected, treated with phlebotomy, followed ferritin. [facility] heme onc consult - rec annual CBC, CMP, ferritin; phlebotomy if ferritin > 100. Hyperlipidemia (Chronic) GERD (gastroesophageal reflux disease) (Chronic) History of Monaco's esophagus, EGD every 3 years, last EGD 04/2021. Normal EGD 2023; per surgery no further EGD for screening needed. Essential hypertension (Chronic) Medical History History of Monaco's esophagus Periodic limb movements of sleep (07/2023) Seen on sleep study, asymptomatic COVID-19 Osteoarthritis Bilateral hip replacement Surgical History History of cardiac catheterization 2021-last saw cards 10/2023 Status post lumbar laminectomy History of left hip replacement (~10/2019) History of colonoscopy (~01/2024) History of right hip replacement (~07/2018) History of bilateral tubal ligation Family History Brother Depression Heart disease Hypertension Metastatic melanoma to pancreas Sister Cancer skin Depression Heart disease Hypertension Father , 72 Heart disease Hypertension Hyperlipidemia Mother Hypertension Dementia Hyperlipidemia Sister Hypertension Hyperlipidemia Immune deficiency disorder Takotsubo cardiomyopathy Sister Hyperlipidemia Hypertension Osteoporosis Takotsubo cardiomyopathy Son , 32 of accident due to medical marijuana psychosis. No problems noted. Son No problems noted. Daughter No problems noted. 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) Pets and animals: Yes Pets and animals: dog(s) Sexually active: Yes Do you think of yourself as: straight/heterosexual Current gender identity: female What is your relationship status?: How often do you talk on the phone with friends or family?: three or more times per week How often do you get together with friends or relatives?: three or more times per week Do you belong to any clubs or organized social groups?: no Panel score (0-1 are the most socially isolated patients): 2 What type of physical activity do you participate in: walking and bicycling Duration: 15-30 minutes/day Frequency: 3-4 times per week Analia/Oriental Orthodox: None Special analia needs: No Seatbelt use: always Helmet use: Yes Helmet use: always Drive intox or ride w/intox grab driver: No Do you feel safe at home: Yes Do you feel safe in your relationship?: Yes History History 4 Para 3 Hx # Term Pregnancies 3 Multiple births Hx # Pregnancies Ectopic pregnancies AB induced Hx Number of Living Children 3 AB spontaneous
--- NOTE | 2025-03-07 10:56 | DI.RAD_ITS ---
Exam(s) XR CHEST 2V PA LATERAL EXAM: XR CHEST 2V PA LATERAL CLINICAL HISTORY: palpitations, dizziness. TECHNIQUE: 2D digital imaging was performed. COMPARISON: CR XR PORTABLE CHEST AP from 03/28/2022 FINDINGS: 2 views: Heart size is normal. The mediastinum is not widened. Lungs are clear. No infiltrates nor pleural effusions. IMPRESSION: No acute pulmonary findings. DATA REPOSITORY: RADIATION DOSE DELIVERED:
[2025-03-07 11:01] LABS: ALT 37 U/L (14-59); AST 27 U/L (15-37); Albumin 4.3 g/dL (3.4-5.0); Alkaline Phosphatase 88 U/L (46-116); Anion Gap 10.3 mmol/L (3-11); BUN 21 mg/dL (7-18); Bilirubin, Total 0.5 mg/dL (0.2-1.0); CO2 26.7 mmol/L (21.0-32.0); Calcium 9.4 mg/dL (8.5-10.1); Chloride 103 mmol/L (98-107); Estimated GFR 63.70 (mL/min/1.73m2); Glucose 119 mg/dL (74-106); Magnesium 2.3 mg/dL (1.8-2.4); NT-proBNP 64 pg/mL (<300); Potassium 3.8 mmol/L (3.5-5.1); Sodium 140 mmol/L (136-145); TSH (W/Ref FT4) 1.16 uIU/mL (0.36-3.74); Total Protein 7.5 g/dL (6.4-8.2); Troponin I 4 ng/L (<or=51)
[2025-03-07 11:12] LABS: Glucose Negative (Negative)
[2025-03-07 11:22] LABS: C & S Indicated? No; RBC 0-2 HPF (0-2); WBC 0-2 HPF (0-5)
[2025-03-07] MEDS: Normal Saline 1,000 ML 1000 ML IV (12:00)
[2025-03-07 12:05] LABS: Troponin I 4 ng/L (<or=51)
== END 2025-03-07 13:44 | disposition home or self-care (01) ==
PROVIDERS: Emergency Provider Nurse Practitioner Family; PCP Family Medicine
DX: R42 Dizziness and giddiness (principal); I25.10 Atherosclerotic heart disease of native coronary artery without angina pectoris; E78.5 Hyperlipidemia, unspecified; I10 Essential (primary) hypertension; Z95.5 Presence of coronary angioplasty implant and graft; Z79.82 Long term (current) use of aspirin
CPT/HCPCS: 80053; 87426; 93005; 96360; 99285; 71046; 81003; 81015; 83735; 83880; 84443; 84484; 85025; 93010; 99284

== ENCOUNTER → 2025-07-02 02:23 | Outpatient (CLI) | payer BC, SELFPAY ==
--- NOTE | 2025-07-02 09:06 | DI.MAMMO_ITS ---
Exam(s) MAMMO SCREENING EXAM: MAMMO SCREENING CLINICAL HISTORY: screening. TECHNIQUE: Bilateral full field digital CC and MLO mammographic images were obtained with 3D tomosynthesis and utilizing computer aided detection (CAD). COMPARISON: Prior mammograms were reviewed. FINDINGS: There are no new right breast findings. In the left breast on the MLO view there is an asymmetric density-possible nodule measuring 8 by 6 mm, located cm in from the nipple on the MLO view. Further imaging recommended. There are no malignant-appearing microcalcification groups in this region nor elsewhere in either breast. There is no significant architectural distortion nor skin thickening-retraction. IMPRESSION: 1. No radiographic evidence malignancy in the right breast. 2. Asymmetric density-possible nodule in the left breast as described above. Spot compression MLO view and left breast ultrasound recommended. BI-RADS Category 0 - Incomplete: Need additional imaging evaluation Breast Density - Category B - There are scattered areas of fibroglandular density. Breast density Category C or D implies that the patient has dense breast tissue. Dense breast tissue can make it harder to find cancer on a mammogram. Dense breast tissue is also associated with an increased risk of breast cancer. This information about the result of the mammogram report was provided to the patient to raise their awareness. Use this report when you speak with the patient about their risks for breast cancer, which includes their family history. At that time, you may recommend additional screening tests (Ultrasound or MRI) as these tests may add significant information. A negative radiographic report should not delay biopsy if a dominant or clinically suspicious mass is present. Up to ten percent of cancers are not identified on mammography. A negative report may reinforce clinical impression. Adenosis and dense breasts may obscure an underlying neoplasm. False positive reports average 6 to 10%. Patient will receive a letter notifying them of these results.
== END ==
LOC: DI 02:23
PROVIDERS: PCP Family Medicine; Visit Provider Obstetrics & Gynecology
DX: Z12.31 Encounter for screening mammogram for malignant neoplasm of breast (principal)
CPT/HCPCS: 77063; 77067

== ENCOUNTER 2025-07-02 03:20 | Outpatient (CLI) | payer BC, SELFPAY ==
[2025-07-03 11:39] LABS: Lyme Ab w Rflx to Lyme Confirm Negative (Negative)
[2025-07-05 16:19] LABS: B. miyamotoi PCR Negative (Negative); Babesia divergens/MO-1 Negative (Negative); Ehrlichia muris eauclairensis Negative (Negative)
== END 2025-07-02 03:21 | disposition home or self-care (01) ==
LOC: LBO 03:20
PROVIDERS: PCP Family Medicine; Visit Provider Family Medicine
DX: R42 Dizziness and giddiness (principal); Z91.89 Other specified personal risk factors, not elsewhere classified; W57.XXXA Bitten or stung by nonvenomous insect and other nonvenomous arthropods, initial encounter
CPT/HCPCS: 36415; 87798; 86618

== ENCOUNTER → 2025-07-08 00:31 | Outpatient (CLI) | payer BC, SELFPAY ==
--- NOTE | 2025-07-08 | DI.US_ITS ---
Exam(s) MG MAMMO SCREEN CALL BACK UNI US BREAST LT COMPLETE EXAM: MAMMO SCREEN CALL BACK UNI-LEFT AND COMPLETE LEFT BREAST ULTRASOUND CLINICAL HISTORY: F/U ABNL MAMMO, ASYMM DENSITY, POSSIBLE NODULE LT BREAST. TECHNIQUE: Unilateral LEFT BREAST spot mammographic images obtained with 3D tomosynthesisand utilizing computer aided detection (CAD). . Complete LEFT breast Ultrasound was also performed, including all 4 quadrants, the retroareolar region, and the ipsilateral axilla. COMPARISON: Prior mammograms were reviewed. This additional imaging was performed due to findings described on the recent screening mammogram of 07/02/2025. FINDINGS: DIAGNOSTIC MAMMOGRAM: Additional mammographic views performed todayrender this area less concerning and more similar appearance to prior mammograms.. COMPLETE LEFT BREAST ULTRASOUND: Ultrasound performed today reveals no evidence of solid or significant cystic lesions in all 4 quadrants.. Scanning of the ipsilateral axilla reveals no significant adenopathy. IMPRESSION: 1. No radiographic evidence of malignancy. 2. Negative complete left breast ultrasound Appropriate follow-up is repeat left breast mammogram in 6 months, with earlier imaging if a self detected breast change is noted.. The patient was informed of these findings and recommendations by myself prior to leaving the department today. BI-RADS Category 3 - 6 month - Probably Benign Finding: Recommend follow-up mammography in 6 months Breast Density - Category B - There are scattered areas of fibroglandular density. Breast density Category C or D implies that the patient has dense breast tissue. Dense breast tissue can make it harder to find cancer on a mammogram. Dense breast tissue is also associated with an increased risk of breast cancer. This information about the result of the mammogram report was provided to the patient to raise their awareness. Use this report when you speak with the patient about their risks for breast cancer, which includes their family history. At that time, you may recommend additional screening tests (Ultrasound or MRI) as these tests may add significant information. A negative radiographic report should not delay biopsy if a dominant or clinically suspicious mass is present. Up to ten percent of cancers are not identified on mammography. A negative report may reinforce clinical impression. Adenosis and dense breasts may obscure an underlying neoplasm. False positive reports average 6 to 10%. Patient will receive a letter notifying them of these results.
== END ==
LOC: DI 00:31
PROVIDERS: PCP Family Medicine; Visit Provider Obstetrics & Gynecology
DX: Z12.31 Encounter for screening mammogram for malignant neoplasm of breast (principal)
CPT/HCPCS: 76642; 77063; 77067